=== PATIENT | female | born 1985 | race Caucasian/White ===

== ENCOUNTER 2022-10-12 08:02 | Outpatient (OUT) | payer BC, SELFPAY ==
[2022-10-12 08:20] LABS: Basophils Absolute Auto 0.1 10^3/uL (0.0-0.1); Basophils Percent Auto 0.5 % (0.2-2.0); Eosinophils Absolute Auto 0.2 10^3/uL (0.0-0.7); Eosinophils Percent Auto 1.6 % (0.9-7.0); Hematocrit 38.2 % (36.0-48.0); Hemoglobin 12.3 g/dL (12.0-16.0); Immature Granulocytes Abs Auto 0.04 10^3/uL (0.00-0.03); Immature Granulocytes Pct Auto 0.4 % (0.0-0.5); Lymphocytes Absolute Auto 2.6 10^3/uL (1.2-3.8); Lymphocytes Percent Auto 27.1 % (20.5-60.0); Mean Corpuscular HGB Conc 32.2 g/dL (29.9-35.2); Mean Platelet Volume 9.3 fL (9.5-13.5); Monocytes Absolute Auto 0.7 10^3/uL (0.3-0.8); Monocytes Percent Auto 7.3 % (1.7-12.0); Neutrophils Absolute Auto 6.1 10^3/uL (1.4-6.5); Neutrophils Percent Auto 63.1 % (43.0-75.0); Platelet Count 234 10^3/uL (150-450); Red Blood Count 4.39 10^6/uL (4.20-5.40); White Blood Count 9.6 10^3/uL (4.0-11.0)
[2022-10-12 09:08] LABS: Estimated Average Glucose 94 mg/dL; Glycohemoglobin A1C 4.9 % (4.5-6.2)
[2022-10-12 13:26] LABS: Free T4 1.24 ng/dL (0.76-1.46)
[2022-10-12 14:36] LABS: Alanine Aminotransferase 22 U/L (14-59); Albumin Globulin Ratio 1.1; Albumin Level 3.8 g/dL (3.4-5.0); Alkaline Phosphatase 47 U/L (46-116); Anion Gap 10.3; Aspartate Amino Transferase 14 U/L (15-37); BUN Creatinine Ratio 18.4; Bilirubin Total 0.4 mg/dL (0.2-1.0); Calcium 8.7 mg/dL (8.5-10.1); Carbon Dioxide 28.5 mmol/L (21.0-32.0); Chloride 102 mmol/L (98-107); Chol HDL Ratio 3.1; Cholesterol 179 mg/dL (<=200); Estimated GFR (African America >60 (>=60); Estimated GFR (Non-African Ame >60 (>=60); Globulin 3.5 g/dL; Glucose 85 mg/dL (74-106); HDL Cholesterol 57 mg/dL (40-60); LDL Cholesterol Calculated 110.6 mg/dL; Potassium 3.8 mmol/L (3.5-5.1); Sodium 137 mmol/L (136-145); Thyroid Stimulating Hormone 0.769 uIU/mL (0.358-3.740); Total Protein 7.3 g/dL (6.4-8.2); Triglycerides 57 mg/dL (<=150); VLDL CHOLESTEROL 11.4 mg/dL
== END 2022-10-12 08:03 | disposition home or self-care (01) ==
LOC: LAB 08:06
PROVIDERS: Visit Provider Obstetrics & Gynecology
DX: Z01.89 Encounter for other specified special examinations (principal)
CPT/HCPCS: 36415; 80053; 80061; 83036; 84439; 84443; 85025

== ENCOUNTER 2023-09-04 20:33 | Outpatient (REF) | payer BC, SELFPAY ==
[2023-09-11 15:08] LABS: Age Gdln ACOG Testing Note (.); HPV Aptima Negative (Negative); IGP, Aptima HPV, rfx 16/18,45 Note (.)
== END 2023-09-04 20:34 | disposition home or self-care (01) ==
LOC: LAB 20:33
PROVIDERS: Visit Provider Physician Assistant
DX: Z01.419 Encounter for gynecological examination (general) (routine) without abnormal findings (principal)
CPT/HCPCS: 87624; G0145

== ENCOUNTER 2023-09-12 09:07 | Outpatient (OUT) | payer BC, SELFPAY ==
--- NOTE | 2023-09-12 09:11 | MM_ITS ---
Patient Name: GEOFF GONZALEZ MR#: [id number] : 1985 Exam Date: 09/12/2023 Ordering Doctor: FENG Mckeon . RADIOLOGY REPORT PROCEDURE: MM TOMOSYNTHESIS DIAGNOSTIC BI, 09/12/2023, 09:13 US BREAST RT LIMITED, 09/12/2023, 09:31 COMPARISON: MG MAMM SCREEN 3D JULEE CAD, 08/28/2022. INDICATIONS: N63.10 Mass of right breast Calculator Name NCI Breast Cancer Risk Assessment Tool 5 Year Breast Cancer Risk 0.80% Lifetime Breast Cancer Risk 14.80% Personal Breast Cancer No Personal Ovarian Cancer No Treatments None Family Cancers None LOCATION: The [facility] BREAST COMPOSITION: The breasts are extremely dense, which lowers the sensitivity of mammography. FINDINGS: DIAGNOSTIC CATEGORY 0--INCOMPLETE: NEED ADDITIONAL IMAGING EVALUATION. Scattered benign-appearing nodules are present. Scattered benign-appearing calcifications are present. Scattered benign-appearing lymph nodes are present. RIGHT BREAST: No mammographic or ultrasound abnormality to correspond to the patient's palpable abnormality demarcated with a triangle marker lower inner quadrant, mid breast. Physical exam demonstrates a definite subcutaneous palpable nodule size of a pea along the 6 o'clock position of the right breast. In light of the physical exam, follow-up MRI is recommended for further evaluation. LEFT BREAST: No significant suspicious finding. RECOMMENDATIONS: BREAST MRI: BILATERAL BREASTS PLEASE NOTE: A NORMAL MAMMOGRAM DOES NOT EXCLUDE THE POSSIBILITY OF BREAST CANCER. A CLINICALLY SUSPICIOUS PALPABLE LUMP SHOULD BE BIOPSIED. Dictated by: Rudolph Stevenson MD on 09/12/2023 at 10:06 Approved by: Rudolph Stevenson MD on 09/12/2023 at 10:10
--- NOTE | 2023-09-12 09:29 | US_ITS ---
Patient Name: GEOFF GONZALEZ MR#: [id number] : 1985 Exam Date: 09/12/2023 Ordering Doctor: FENG Mckeon . RADIOLOGY REPORT PROCEDURE: MM TOMOSYNTHESIS DIAGNOSTIC BI, 09/12/2023, 09:13 US BREAST RT LIMITED, 09/12/2023, 09:31 COMPARISON: MG MAMM SCREEN 3D JULEE CAD, 08/28/2022. INDICATIONS: N63.10 Mass of right breast Calculator Name NCI Breast Cancer Risk Assessment Tool 5 Year Breast Cancer Risk 0.80% Lifetime Breast Cancer Risk 14.80% Personal Breast Cancer No Personal Ovarian Cancer No Treatments None Family Cancers None LOCATION: [facility] BREAST COMPOSITION: The breasts are extremely dense, which lowers the sensitivity of mammography. FINDINGS: DIAGNOSTIC CATEGORY 0--INCOMPLETE: NEED ADDITIONAL IMAGING EVALUATION. Scattered benign-appearing nodules are present. Scattered benign-appearing calcifications are present. Scattered benign-appearing lymph nodes are present. RIGHT BREAST: No mammographic or ultrasound abnormality to correspond to the patient's palpable abnormality demarcated with a triangle marker lower inner quadrant, mid breast. Physical exam demonstrates a definite subcutaneous palpable nodule size of a pea along the 6 o'clock position of the right breast. In light of the physical exam, follow-up MRI is recommended for further evaluation. LEFT BREAST: No significant suspicious finding. RECOMMENDATIONS: BREAST MRI: BILATERAL BREASTS PLEASE NOTE: A NORMAL MAMMOGRAM DOES NOT EXCLUDE THE POSSIBILITY OF BREAST CANCER. A CLINICALLY SUSPICIOUS PALPABLE LUMP SHOULD BE BIOPSIED. Dictated by: Rudolph Stevenson MD on 09/12/2023 at 10:06 Approved by: Rudolph Stevenson MD on 09/12/2023 at 10:10
--- OUTSIDE RECORDS SUMMARY | 2023-09-12 09:34 | XMS_ITS | CCD ---
Author Organization [facility] Care Team Providers Care Manufacturing Finance Manager Name Role Phone Keisha Philippekennethюлия Lewis Unavailable Unavaila ble None Unavailable Unavailable Maday, Ramonita Unavailable Unavailable Maday, Ramonita Unavailable Unavailable Maday, Ramonita Unavailable Unavailable Maday, Ramonita Unavailable Unavailable Maday, Ramonita Unavailable Unavailable Maday, Ramonita Unavailable Unavailable Maday, Ramonita Unavailable Unavailable Maday, Ramonita Unavailable Unavailable Maday, Ramonita Unavailable Unavailable Maday, Ramonita Unavailable Unavailable Maday, Ramonita Unavailable Unavailable Maday, Ramonita Unavailable Unavailable Maday, Ramonita Unavailable Unavailable Maday, Ramonita Unavailable Unavailable Maday, Ramonita Unavailable Unavailable Maday, Ramonita Unavailable Unavailable Maday, Ramonita Unavailable Unavailable Maday, Ramonita Unavailable Unavailable Maday, Ramonita Unavailable Unavailable Maday, Ramonita Unavailable Unavailable Maday, Ramonita Unavailable Unavailable Maday, Ramonita Unavailable Unavailable Maday, Ramonita Unavailable Unavailable DENNISE ., LYNDA Consulting Unavailable DENNISE ., LYNDA Admitting Unavailable DENNISE ., LYNDA Attending Unavailable DENNISE ., LYNDA Consulting Unavailable DENNISE ., LYNDA Admitting Unavailable DENNISE ., LYNDA Attending Unavailable SOLO, JONATAN Attending Unavailable SOLO, JONATAN Consulting Unavailable SOLO, JONATAN Admitting Unavailable SAMSA, VALENTINE Attending Unavailable SAMSA, VALENTINE Consulting Unavailable SAMSA, VALENTINE Admitting Unavailable DENNISE, LYNDA Attending Unavailable Allergies Allergy Classification Reported Allergen(s) Allergy Type Date of Onset Reaction(s) Facility (1 source) cefprozil Drug Allergy 02-18-2018 [facility] Repository Problems Active Problems Problem Classification Problem Date Documented Date Episodic/Chronic Fever of unknown origin (1 source) Fever, unspecified; Translations: [FEVER, UNSPECIFIED] Onset: 02-26-2018 Episodic Immunizations and screening for infectious disease (1 source) Encounter for screening for human papillomavirus (HPV); Translations: [ENC SCREENING HUMAN PAPILLOMAVIRUS] Onset: 08-24-2022 Episodic Other non-traumatic joint disorders (1 source) Other specified joint disorders, right hip; Translations: [OTHER SPECIFIED JOINT DISORDERS, RIGHT HIP] Onset: 02-20-2018 Episodic Other screening for suspected conditions (not mental disorders or infectious disease) (4 sources) Encounter for screening for malignant neoplasm of cervix; Translations: [ENC SCREENING MALIG NEOPLASM CERV] Onset: 08-21-2022 Episodic Other upper respiratory infections (5 sources) Acute pharyngitis, unspecified; Translations: [ACUTE PHARYNGITIS, UNSPECIFIED] Onset: 02-26-2018 Episodic Thyroid disorders (1 source) Hypothyroidism, unspecified; Translations: [HYPOTHYROIDISM, UNSPECIFIED] Onset: 07-22-2017 Chronic Unclassified (1 source) Unknown / UNK(Unknown) Onset: 02-27-2017 Past or Other Problems Problem Classification Problem Date Documented Da te Episodic/Chronic Genitourinary symptoms and ill-defined conditions (2 sources) Dysuria; Translations: [Frequency of micturition] Onset: 07-08-2017 Episodic Other non-traumatic joint disorders (1 source) Pain in right hip; Translations: [PAIN IN RIGHT HIP] Onset: 08-26-2017 Episodic Results Test Name Value Interpretation Reference Range Facil ity PAP ACOG PANEL 2: 30 to 65on 08-29-[address] [facility] Comment on above: Result Comment: Perf ormed at: WB Performed By: #### [id number] #### [facility] [address] [place] [address] Dr. Harshal Valenzuela Age Gdln ACOG Testing 30-[address] [facility] Comment on above: Performed By: #### 4 [id number] #### [facility] [address] [address] [address] Harshal Valenzuela DIAGNOSIS: Comment Normal [facility] Comment on above: Result Comment: NEGA TIVE FOR INTRAEPITHELIAL LESION OR MALIGNANCY. Performed at: WB Performed By: #### 4 [id number] #### [facility] [address] [address] [address] Harshal Valenzuela HPV Aptima Negative Normal Negative [facility] Comment on above: Result Comment: This nucleic acid amplification test detects fourteen high-risk HPV types (16,18,31,33,35,39,45,51,52,56,58,59,66,68) without differentiation. Performed at: =G Performed By: #### 4 [id number] #### [facility] [address] [place] [address] Dr. Harshal Valenzuela HPV Genotype Reflex Comment Normal [facility] Comment on above: Result Comment: Crit eria not met, HPV Genotype not performed. Performed at: WB Performed By: #### 4 [id number] #### [facility] [address] [place] [address] Dr. Harshal Valenzuela Methodology: Comment Normal [facility] Comment on above: Result Comment: This liquid based ThinPrep(R) pap test was screened with the use of an image guided system. Performed at: WB Performed By: #### 4 [id number] #### [facility] [address] [place] [address] Dr. Harshal Valenzuela Note: Comment Normal [facility] Comment on above: Result Comment: The Pap smear is a screening test designed to aid in the detection of premalignant and malignant conditions of the uterine cervix. It is not a diagnostic procedure and should not be used as the sole means of detecting cervical cancer. Both false-positive and false-negative reports do occur. . Performed at: WB Performed By: #### 4 [id number] #### [facility] [address] [place] [address] Dr. Harshal Valenzuela Performed by: Comment Normal [facility] Comment on above: Result Comment: Carin Paredes, Machinist/Machine Builder (ASCP) Performed at: WB Performed By: #### 4 [id number] #### [facility] [address] [place] [address] Dr. Harshal Valenzuela Specimen adequacy: Comment Normal [facility] Comment on above: Result Comment: Sati sfactory for evaluation. No endocervical component is identified. Performed at: WB Performed By: #### 4 [id number] #### [facility] [address] [place] [address] Dr. Harshal Valenzuela MG MAMM SCREEN 3D JULEE CADon 08-28-2022 MG MAMM SCREEN 3D JULEE CAD Patient: GEOFF GONZALEZ Exam Date: 08/28/2022 : 1985 Gender:F Ordering : FENG BOWDEN . Admission #: [id number] Family : Order #: [id number] CLICK HERE TO VIEW EXAM RADIOLOGY REPORT PROCEDURE: MAMMOGRAM SCREENING 3D BILATERAL CAD COMPARISON: MG MAMM SCREEN 3D JULEE CAD, 09/13/2021. MG MAMM SCREEN 3D JULEE CAD, 01/13/2020. MG MAMM JULEE DIAG W CAD, 10/06/2018. INDICATIONS: Screening mammography Calculator Name NCI Breast Cancer Risk Assessment Tool 5 Year Breast Cancer Risk 0.80% Lifetime Breast Cancer Risk 14.90% Personal Breast Cancer No Personal Ovarian Cancer No Treatments None Family Cancers None LOCATION: [facility] BREAST COMPOSITION: Extremely dense, which lowers the sensitivity of mammography. FINDINGS: DIAGNOSTIC CATEGORY 1--NEGATIVE. RIGHT BREAST: No significant suspicious finding. No significant change has occurred. LEFT BREAST: No significant suspicious finding. No significant change has occurred. RECOMMENDATIONS: ROUTINE MAMMOGRAM AND CLINICAL EVALUATION IN 12 MONTHS. PLEASE NOTE: A NORMAL MAMMOGRAM DOES NOT EXCLUDE THE POSSIBILITY OF BREAST CANCER. A CLINICALLY SUSPICIOUS PALPABLE LUMP SHOULD BE BIOPSIED. Dictated by: Adán Chambers M.D. on 08/30/2022 at 13:13 Approved by: Adán Chambers M.D. on 08/30/2022 at 13:15 Normal [facility] GROUP A STREP CULTUREon 07-22 S. pyogenes Ag Ql (Unsp spec) Culture Observations: NEGATIVE FOR GROUP A STREPTOCOCCUS. Normal [facility] Comment on above: Performed By: #### G RASTCX, SSCRN #### [facility] [address] [address] [address] Harshal Valenzuela STREPT SCREENon 08-16-2022 STREP SCREEN A Negative Normal NEGATIVE [facility] Comment on above: Performed By: #### G RASTCX, SSCRN #### [facility] [address] [address] [address] Harshal Valenzuela QUANTIFERON TB GOLD PLUSon 1 05-06-2021 QuantiFERON Criteria Comment Normal [facility] Comment on above: Result Comment: Danielito tiFERON-TB Gold Plus is a qualitative indirect test for M tuberculosis infection (including disease) and is intended for use in conjunction with risk assessment, radiography, and other medical and diagnostic evaluations. The QuantiFERON-TB Gold Plus result is determined by subtracting the Nil value from either TB antigen (Ag) value. The Mitogen tube serves as a control for the test. Performed By: #### Q NTTB #### [facility] [address] [place] [address] Dr. Harshal Valenzuela QuantiFERON Mitogen Value >10.[address] [facility] Comment on above: Performed By: #### Q NTTB #### [facility] [address] [place] [address] Dr. Harshal Valenzuela QuantiFERON Nil Value 0.04 IU/mL Normal [facility] Comment on above: Performed By: #### Q NTTB #### [facility] [address] [place] [address] Dr. Harshal Valenzuela QuantiFERON TB1 Ag Value 0.03 IU/mL Normal [facility] Comment on above: Performed By: #### Q NTTB #### [facility] [address] [place] [address] Dr. Harshal Valenzuela QuantiFERON TB2 Ag Value 0.03 IU/mL Normal [facility] Comment on above: Performed By: #### Q NTTB #### [facility] [address] [place] [address] Dr. Harshal Valenzuela QuantiFERON Incubation Incubation performed. Normal [facility] Comment on above: Performed By: #### Q NTTB #### [facility] [address] [place] [address] Dr. Harshal Valenzuela QuantiFERON-TB Gold Plus Negative Normal Negative [facility] Comment on above: Result Comment: No r esponse to M tuberculosis antigens detected. Infection with M tuberculosis is unlikely, but high risk individuals should be considered for additional testing (ATS/IDSA/CDC Clinical Practice Guidelines, 2017). The reference range is an Antigen minus Nil result of <0.35 IU/mL. Chemiluminescence immunoassay methodology Performed By: #### Q NTTB #### [facility] [address] [place] [address] Dr. Harshal Valenzuela HEPATITIS B SURFACE ANTIBODY , QUANTon 03-03-2022 Hepatitis B Surf AB Quant 23.6 mIU/mL Normal Immunity>9.9 [facility] Comment on above: Result Comment: Stat us of Immunity Anti-HBs Level Inconsistent with Immunity 0.0 - 9.9 Consistent with Immunity >9.9 Performed By: #### H EPBSRF #### [facility] [address] [place] [address] Dr. Harshal Valenzuela MMR IMMUNITYon 03-03-2022 Mumps Abs, IgG <9.0 Critically low Immune >10.9 [facility] Comment on above: Result Comment: Nega tive <9.0 Equivocal 9.0 - 10.9 Positive >10.9 A positive result generally indicates past exposure to Mumps virus or previous vaccination. Performed By: #### M MRIMMU #### [facility] [address] [place] [address] Dr. Harshal Valenzuela Rubella Antibodies, IgG <0.90 Critically low Immune >0.99 [facility] Comment on above: Result Comment: Non- immune <0.90 Equivocal 0.90 - 0.99 Immune >0.99 Performed By: #### M MRIMMU #### [facility] [address] [place] [address] Dr. Harshal Valenzuela Rubeola Ab, IgG 52.5 AU/mL Normal Immune >16.4 [facility] Comment on above: Result Comment: Nega tive <13.5 Equivocal 13.5 - 16.4 Positive >16.4 Presence of antibodies to Rubeola is presumptive evidence of immunity except when acute infection is suspected. Performed By: #### M MRIMMU #### [facility] [address] [place] [address] Dr. Harshal Valenzuela VARICELLA IGG ABon 2 Varicella Zoster IgG 394 index Normal Immune >165 [facility] Comment on above: Result Comment: Nega tive <135 Equivocal 135 - 165 Positive >165 A positive result generally indicates exposure to the pathogen or administration of specific immunoglobulins, but it is not indication of active infection or stage of disease. Performed By: #### V ARCEL #### [facility] [address] [address] [address] Harshal Valenzuela CMV IGG ANTIBODYon 8 CMV IGG ANTIBODY 1.50 U/mL Abnormal <0.[address] [facility] Comment on above: Order Comment: REASO N FOR EXAM E03.9 Result Comment: U/mL Interpretation <0.60 Negative0.60 - 0.69 Equivocal> or = 0.70 PositiveA positive result indicates that the patient hasantibody to CMV. It does not differentiate betweenan active or past infection.Test Performed by [facility],[address] [place], [place] [address]LqgiyxbKori Jaffe M.D., Ph.D., Director of [phone], CLIA [id number] CMV IGM ANTIBODYon 8 CMV IGM ANTIBODY <30.00 Normal <30.[address] [facility] Comment on above: Order Comment: REASO N FOR EXAM E03.9 Result Comment: AU/m L Interpretation < 30.00 No Antibody Hoftltcu88.00 - 34.99 Equivocal > or = 35.00 Antibody DetectedResults from any one IgM assay should not be used as asole determinant of a current or recent infection.Because an IgM test can yield false positive resultsand low level IgM antibody may persist for more than 12months post infection, reliance on a single test resultcould be misleading. Acute infection is best diagnosedby demonstrating the conversion of IgG from negative topositive. If an acute infection is suspected, considerobtaining a new specimen and submit for both IgG andIgM testing in two or more weeks.Test Performed by [facility],[address] [place], [place] [address]VtjmytdKori Jaffe M.D., Ph.D., Director of [phone], CLIA [id number] EBV VIRAL CAPSID AB IGGon EBV VIRAL CAPSID AB IGG 428.00 U/mL Abnormal <18.00 [facility] Comment on above: Order Comment: REASO N FOR EXAM E03.9 Result Comment: U/mL Interpretation <18.00 Ojbxthur88.00 - 21.99 Equivocal >21.99 PositiveTest Performed by [employer],[address] [place], [place] [address]QyujejbKori Jaffe M.D., Ph.D., Director of [phone], CLIA [id number] EBV VIRAL CAPSID AB IGMon EBV VIRAL CAPSID AB IGM <36.00 Normal <36.00 [facility] Comment on above: Order Comment: REASO N FOR EXAM E03.9 Result Comment: U/mL Interpretation <36.00 Cwgzanur18.00 - 43.99 Equivocal >43.99 PositiveTest Performed by [employer],[address] [place], [place] [address]CesmtmqKori Jfafe M.D., Ph.D., Director of [phone], CLIA [id number] COMPLETE BLOOD COUNTon 02-26 ABSOLUTE SEGS 3400 /cmm Normal 0873-2187 [facility] Comment on above: Order Comment: REASO N FOR EXAM E03.9 Performed By: #### T 4F, TSH ####MAIN LABCLIA:[id number] [place] [address] Basophils Auto #/vol (Bld) 100 /cmm Normal <216 [facility] Comment on above: Order Comment: REASO N FOR EXAM E03.9 Performed By: #### T 4F, TSH ####MAIN LABCLIA:[id number] [place] [address] Basophils/100 WBC Auto (Bld) 0.8 % Normal <2.0 [facility] Comment on above: Order Comment: REASO N FOR EXAM E03.9 Performed By: #### T 4F, TSH ####MAIN LABCLIA:[id number] [place] [address] Eosinophils Auto #/vol (Bld) 100 /cmm Normal <432 [facility] Comment on above: Order Comment: REASO N FOR EXAM E03.9 Performed By: #### T 4F, TSH ####MAIN LABCLIA:[id number] [facility] [address] Eosinophils/100 WBC Auto (Bld) 1.1 % Normal <4.0 [facility] Comment on above: Order Comment: REASO N FOR EXAM E03.9 Performed By: #### T 4F, TSH ####MAIN LABCLIA:[id number] [facility] [place] [address] Erythrocyte distribution width Auto Ratio (RBC) 13.1 % Normal 11.5-14.5 [facility] Comment on above: Order Comment: REASO N FOR EXAM E03.9 Performed By: #### T 4F, TSH ####MAIN LABCLIA:[id number] [facility] [place] [address] Hematocrit Auto Volume Fraction (Bld) 38.1 % Normal 38.0-47.0 [facility] Comment on above: Order Comment: REASO N FOR EXAM E03.9 Performed By: #### T 4F, TSH ####MAIN LABCLIA:[id number] [facility] [place] [address] Hemoglobin mass conc (Bld) 12.9 g/dL Normal 12.0-16.4 [facility] Comment on above: Order Comment: REASO N FOR EXAM E03.9 Performed By: #### T 4F, TSH ####MAIN LABCLIA:[id number] [place] [address] Lymphocytes Auto #/vol (Bld) 2300 /cmm Normal [phone] [facility] Comment on above: Order Comment: REASO N FOR EXAM E03.9 Performed By: #### T 4F, TSH ####MAIN LABCLIA:[id number] [place] [address] Lymphocytes/100 WBC Auto (Bld) 34.0 % Normal 20.0-44.0 [facility] Comment on above: Order Comment: REASO N FOR EXAM E03.9 Performed By: #### T 4F, TSH ####MAIN LABCLIA:[id number] [place] [address] MCH Auto Entitic mass (RBC) 33.7 g/dL Normal 32.0-36.0 [facility] Comment on above: Order Comment: REASO N FOR EXAM E03.9 Performed By: #### T 4F, TSH ####MAIN LABCLIA:[id number] [place] [address] MCH Auto Entitic mass (RBC) 28.7 pg Normal 27.0-31.0 [facility] Comment on above: Order Comment: REASO N FOR EXAM E03.9 Performed By: #### T 4F, TSH ####MAIN LABCLIA:[id number] [place] [address] MCV Auto Entitic volume (RBC) 85.1 fL Normal 80.0-96.0 [facility] Comment on above: Order Comment: REASO N FOR EXAM E03.9 Performed By: #### T 4F, TSH ####MAIN LABCLIA:[id number] [facility] [address] Monocytes Auto #/vol (Bld) 900 /cmm Normal 96-972 [facility] Comment on above: Order Comment: REASO N FOR EXAM E03.9 Performed By: #### T 4F, TSH ####MAIN LABCLIA:[id number] [place] [address] Monocytes/100 WBC Auto (Bld) 13.6 % High 2.0-9.0 [facility] Comment on above: Order Comment: REASO N FOR EXAM E03.9 Performed By: #### T 4F, TSH ####MAIN LABCLIA:[id number] [facility] [place] [address] Neutrophils/100 WBC Auto (Bld) 50.5 % Normal 50.0-70.0 [facility] Comment on above: Order Comment: REASO N FOR EXAM E03.9 Performed By: #### T 4F, TSH ####MAIN LABCLIA:[id number] [facility] [place] [address] Platelets Auto #/vol (Bld) 248 10 3/cmm Normal 130-400 [facility] Comment on above: Order Comment: REASO N FOR EXAM E03.9 Performed By: #### T 4F, TSH ####MAIN LABCLIA:[id number] [facility] [address] RBC Auto #/vol (Bld) 4.48 10 6/cmm Normal 4.20-5.40 [facility] Comment on above: Order Comment: REASO N FOR EXAM E03.9 Performed By: #### T 4F, TSH ####MAIN LABCLIA:[id number] [facility] [address] WBC Auto #/vol (Bld) 6.8 10 3/cmm Normal 4.8-10.8 [facility] Comment on above: Order Comment: REASO N FOR EXAM E03.9 Performed By: #### T 4F, TSH ####MAIN LABCLIA:[id number] [facility] [place] [address] MONONUCLEOSIS SCREENon 02-26 MONONUCLEOSIS SCREEN Negative Normal [facility] Comment on above: Order Comment: REASO N FOR EXAM E03.9 Result Comment: @Int ernal Control OK? (yes,no) YESNOTE: Some segments of the population who contract IM do notproduce measurable levels of heterophile antibody.Approximately 50% of children under 4 years of age who haveIM may test as IM heterophile antibody negative. In thosecases, it is suggested that the physician order EBV titerswhich are more specific. Performed By: #### T 4F, TSH ####MAIN LABCLIA:[id number] [facility] [address] MRI HIPon 02-20-[address] [phone] Pt Location: IMGCTR/ DEP REF Pt RM#: MR #: [id number] DATE: 02/20/18 1346 ADM#: [id number] #: [id number] GEOFF GONZALEZ MDOB: 1985 Age/Sex: 32 / F REPORT STATUS: SignedORDERING PHYSICIAN: SALOME FayPRIVATE/PRIMARY PHYSICIAN: SALOME Fay HISTORY/REASON : JOINT DISORDERCLINICAL HISTORY: Right hip pain.TECHNICAL FACTORS:EXAMINATION: MRI HIPFINDINGS: There is a bony bump at the lateral aspect of the junction of thefemoral head/necksuggesting cam type femoral acetabular impingement.The labrum is grossly unremarkable.There is increased signal on T2 weighted images adjacent to the gluteus mediusand gluteus minimustendons suggesting a strain.The hyaline cartilage in the hip joint is unremarkable. There is no evidence of joint effusion.The signal characteristics of bone marrow are within normal limits.IMPRESSION:1. Cam type femoral acetabular impingement. There is no definite labrum tear.2. Strain of the gluteus medius and gluteus minimus tendons.REPORT# [id number] READ BY: Naomy Tay M.D. [id number] REPORT RELEASED BY: Naomy Tay M.D. 02/21/182009Transcribed Date/Time: 02/20/181801 JLECC: SALOME Fay [facility] MRI PELVISon 02-20-[address] [phone] Pt Location: IMGCTR/ DEP REF Pt RM#: MR #: [id number] DATE: 02/20/18 1346 ADM#: [id number] #: [id number] GEOFF GONZALEZ MDOB: 1985 Age/Sex: 32 / F REPORT STATUS: SignedORDERING PHYSICIAN: SALOME FayPRIVATE/PRIMARY PHYSICIAN: SALOME Fay HISTORY/REASON : JOINT DISORDERCLINICAL HISTORY: Pelvic pain.TECHNICAL FACTORS: Coronal and axial T1 weighted images, coronal STIR images,axial T2 weightedimages with fat saturation were performed.EXAMINATION: MRI PELVISFINDINGS: The alignment of the sacroiliac joints and pubic symphysis isanatomic. The alignmentof the hip joints is anatomic.The visualized part of the uterus and ovaries show no abnormality.The urinary bladder is unremarkable.There is no evidence of free fluid in the pelvis.IMPRESSION:Unrem arkable study.REPORT# [id number] READ BY: Naomy Tay M.D. [id number] REPORT RELEASED BY: Naomy Tay M.D. 02/21/182009Transcribed Date/Time: 02/20/18 1758 JLECC: SALOME Fay Normal [facility] COMPREHENSIVE METABOLIC PANE Zach 01-22-2018 Albumin mass conc 4.8 g/dL High 3.0-4.5 [facility] Comment on above: Order Comment: REASO N FOR EXAM Z00.00 Performed By: #### C MP, VASR ####MAIN LABCLIA:[id number] [facility] [place] [address] Albumin/Globulin mass ratio 1.7 {ratio} High 1-1.4 [facility] Comment on above: Order Comment: REASO N FOR EXAM Z00.00 Performed By: #### C GEORGE, VASR ####MAIN LABCLIA:[id number] [facility] [place] [address] ALP enzyme act/vol 53 U/L Normal 35-104 [facility] Comment on above: Order Comment: REASO N FOR EXAM Z00.00 Performed By: #### C GEORGE, VASR ####MAIN LABCLIA:[id number] [facility] [place] [address] ALT enzyme act/vol 12 U/L Normal 0-33 [facility] Comment on above: Order Comment: REASO N FOR EXAM Z00.00 Performed By: #### C GEORGE, VASR ####MAIN LABCLIA:[id number] [facility] [place] [address] Anion gap 3 molar conc 15 mmol/L Normal 9-18 [facility] Comment on above: Order Comment: REASO N FOR EXAM Z00.00 Performed By: #### C GEORGE, VASR ####MAIN LABCLIA:[id number] [facility] [place] [address] AST enzyme act/vol 16 U/L Normal 0-32 [facility] Comment on above: Order Comment: REASO N FOR EXAM Z00.00 Performed By: #### Daksha VAZQUEZ, VASR ####MAIN LABCLIA:[id number] [facility] [address] Bilirubin mass conc 0.5 mg/dL Normal 0.2-1.2 [facility] [facility] Comment on above: Order Comment: REASO N FOR EXAM Z00.00 Performed By: #### C GEORGE, VASR ####MAIN LABCLIA:[id number] [place] [address] Calcium mass conc 9.6 mg/dL Normal 8.6-10.0 [facility] Comment on above: Order Comment: REASO N FOR EXAM Z00.00 Performed By: #### C GEORGE, VASR ####MAIN LABCLIA:[id number] [facility] [place] [address] Chloride molar conc 103 mmol/L Normal 98-107 [facility] Comment on above: Order Comment: REASO N FOR EXAM Z00.00 Performed By: #### C GEORGE, VASR ####MAIN LABCLIA:[id number] [facility] [place] [address] CO2 molar conc 26 mmol/L Normal 22-29 [facility] Comment on above: Order Comment: REASO N FOR EXAM Z00.00 Performed By: #### C GEORGE, VASR ####MAIN LABCLIA:[id number] [place] [address] Creatinine mass conc 0.72 mg/dL Normal 0.50-0.90 [facility] Comment on above: Order Comment: REASO N FOR EXAM Z00.00 Performed By: #### C GEORGE, VASR ####MAIN LABCLIA:[id number] [place] [address] GFR/1.73 sq M.predicted MDRD vol rate/area 99 /1.73 m2 Normal >60 mL/min [facility] Comment on above: Order Comment: REASO N FOR EXAM Z00.00 Result Comment: Norm al RangeStage Description:1 Normal or Increased GFR >=902 Mild Decrease in GFR 60-903 Moderately Decreased GFR 30-594 Severely Decreased GFR 15-295 Kidney Failure <15 Performed By: #### C GEORGE, VASR ####MAIN LABCLIA:[id number] [facility] [place] [address] Globulin Calculated mass conc (S) 2.8 g/dL Normal 2.3-3.5 [facility] Comment on above: Order Comment: REASO N FOR EXAM Z00.00 Performed By: #### C GEORGE, VASR ####MAIN LABCLIA:[id number] [facility] [place] [address] Glucose mass conc 95 mg/dL Normal 74-109 [facility] Comment on above: Order Comment: REASO N FOR EXAM Z00.00 Performed By: #### C MP, VASR ####MAIN LABCLIA:[id number] [facility] [place] [address] Potassium molar conc 4.3 mmol/L Normal 3.5-5.1 [facility] Comment on above: Order Comment: REASO N FOR EXAM Z00.00 Performed By: #### C MP, VASR ####MAIN LABCLIA:[id number] [facility] [place] [address] Protein mass conc 7.6 g/dL Normal 6.4-8.3 [facility] Comment on above: Order Comment: REASO N FOR EXAM Z00.00 Performed By: #### C GEORGE, VASR ####MAIN LABCLIA:[id number] [facility] [place] [address] Sodium molar conc 140 mmol/L Normal 136-145 [facility] Comment on above: Order Comment: REASO N FOR EXAM Z00.00 Performed By: #### C GEORGE, VASR ####MAIN LABCLIA:[id number] [facility] [address] Urea nitrogen mass conc (Bld) 9 mg/dL Normal 6-20 [facility] Comment on above: Order Comment: REASO N FOR EXAM Z00.00 Performed By: #### C GEORGE, VASR ####MAIN LABCLIA:[id number] [facility] [place] [address] Urea nitrogen/Creatinine mass ratio 12.5 mg/mg Normal [facility] Comment on above: Order Comment: REASO N FOR EXAM Z00.00 Performed By: #### C MP, VASR ####MAIN LABCLIA:[id number] [place] [address] FREE T4 (FREE THYROXINE)on 1 T4 free mass conc 1.74 ng/dL High 0.93-1.7 [facility] Comment on above: Order Comment: REASO N FOR EXAM Z00.00 Performed By: #### T 4F, TSH ####MAIN LABCLIA:[id number] [facility] [place] [address] THYROID STIMULATING HORMONEo n 01-22-2018 Thyrotropin Qn 0.86 uIU/mL Normal 0.27-4.[address] [facility] Comment on above: Order Comment: REASO N FOR EXAM Z00.00 Performed By: #### T 4F, TSH ####MAIN LABCLIA:[id number] [place] [address] VASCULAR RISK PANELon 2017 Cholesterol in HDL mass conc 52 mg/dL Low >65 [facility] Comment on above: Order Comment: REASO N FOR EXAM Z00.00 Performed By: #### C MP, VASR ####MAIN LABCLIA:[id number] [facility] [place] [address] Cholesterol in LDL mass conc 96 mg/dL Normal <129 [facility] Comment on above: Order Comment: REASO N FOR EXAM Z00.00 Performed By: #### C MP, VASR ####MAIN LABCLIA:[id number] [facility] [place] [address] Cholesterol mass conc 160 mg/dL Normal 0-199 [facility] Comment on above: Order Comment: REASO N FOR EXAM Z00.00 Performed By: #### C MP, VASR ####MAIN LABCLIA:[id number] [facility] [place] [address] Triglyceride mass conc 58 mg/dL Normal 0-199 [facility] Comment on above: Order Comment: REASO N FOR EXAM Z00.00 Performed By: #### C MP, VASR ####MAIN LABCLIA:[id number] [facility] [place] [address] VLDL CHOLESTEROL 12 mg/dL Normal 5-[address] [facility] Comment on above: Order Comment: REASO N FOR EXAM Z00.00 Performed By: #### C MP, VASR ####MAIN LABCLIA:[id number] [place] [address] HIP UNI 2-3 VIEWS ROUTINEon 07-30-2017 HIP UNI 2-3 VIEWS ROUTINE [address] [phone] Pt Location: [facility] REF Pt RM#: MR #: [id number] DATE: 07/30/17816 ADM#: [id number] #: [id number] GEOFF GONZALEZ MDOB: 1985 Age/Sex: 32 / F REPORT STATUS: SignedORDERING PHYSICIAN: SALOME FayPRIVATE/PRIMARY PHYSICIAN: SALOME Fay HISTORY/REASON : M25.551CLINICAL HISTORY: Hip pain.TECHNICAL FACTORS: 2 view right hip.EXAMINATION: HIP UNI 2-3 VIEWS ROUTINEFINDINGS: The alignment of the osseous structures is preserved. I see nodefinite osteolytic orosteoblastic lesions. The fat pads show no definite abnormalities.IMPRESSIO N:I see no definite bone or soft tissue abnormality in the right hip.REPORT# [id number] READ BY: Clara Tolbert MD 07/30/17 1252FINAL REPORT RELEASED BY: Clara Tolbert MD 07/31/17 1016Transcribed Date/Time: 07/30/17 1535 JLECC: SALOME Fay Normal [facility] FREE T4 (FREE THYROXINE)on 0 07-22-2017 T4 free mass conc 1.31 ng/dL Normal 0.93-1.7 [facility] Comment on above: Order Comment: REASO N FOR EXAM E03.9 Performed By: #### T 4F, TSH ####MAIN LABCLIA:[id number] [place] [address] THYROID STIMULATING HORMONEo n 07-22-2017 Thyrotropin Qn 1.21 uIU/mL Normal 0.27-4.[address] [facility] Comment on above: Order Comment: REASO N FOR EXAM E03.9 Performed By: #### T 4F, TSH ####MAIN LABCLIA:[id number] [facility] [place] [address] URINE CULTUREon 07-08-2017 Bacteria identified Cx Nom (U) ------- URINE CULTURE: No growth after 2 days Normal [facility] Comment on above: Order Comment: REASO N FOR EXAM R30.0 Performed By: #### U RINE ####MAIN LABCLIA:[id number] [place] [address] HPV High Riskon 03-07-2017 HPV High Risk Negative Normal Negative [facility] Comment on above: Result Comment: for types 16,18,31,33,35,39,45,51,52,56,58,59,66 and 68.Methodology: Nucleic Acid Amplification Test (NAAT) Performed By: #### L [phone] ####Main Laboratory ([facility])[address], [place] [phone] Nivar, MD Gynecologic (PAP) Specimenon 02-27-2017 Gynecologic (PAP) Specimen Normal [facility] Comment on above: Result Comment: Name : GEOFF GONZALEZ Age: 31 /Sex: 1985/F MR#: [id number] Reg Date: 02/27/[address]: Denae RECINOS,Shireen#: [id number] Status: DEP CLI Loc: [facility] RM: -Copies to:Mirtha Philippe MD; None Specimen: [id number] Received: [id number] Status: YOSELIN Vanegas Num: [id number] Collected: [id number] Type: ASSET CARD CLERK Subm Doc: Denae RECINOS,Mirtha OG CYTOLOGY REPORT Source: Cervical and Endocervical, Thin Prep, HPV Adequacy of the Specimen: Satisfactory for Evaluation. Presence of endocervical/transformation zone cells. General Categorization: Negative for intraepithelial lesion or malignancy. Comments: HPV regardless of result. The pap test is a screening procedure only. Both false-positive and false-negative results can occur.PATIENT HISTORY LMP Nursing Clinical History: Post Date of Last Pap Unknown Diagnosis codes: Z12.4HPV TYPINGDate Time Test Result Flag (u) Normal Range02/27/17 UNK HPV Negative Negativefor types 16,18,31,33,35,39,45,51,52,56,58,59,66 and 68.Methodology: Nucleic Acid Amplification Test (NAAT)Signed (signature on file) INEZ Hernandez([facility] 03/05/17 1115 (signature on file) INEZ Hernandez([facility] 03/07/17 1425 Performed By: #### P ASSET CARD CLERK ####Main Laboratory ([facility] [place], [place] [phone] Nivar, MD Encounters Encounter Date Encounter Type Care Provider Facility Start: 09-04-2023 End: 09-04-2023 ambulatory LYNDA BOWDEN Not Available Start: 08-28-2022 End: 08-29-2022 ambulatory LYNDA BOWDEN . Facility:[facility] Start: 08-21-2022 End: 08-21-2022 ambulatory LYNDA BOWDEN . Facility:[facility] Start: 08-16-2022 End: 08-17-2022 ambulatory VALENTINE KERN Facility:[facility] Start: 03-02-2022 End: 03-02-2022 ambulatory JONATAN BANDA Facility: Start: 02-26-2018 End: 02-26-2018 Patient encounter procedure [facility] Facility:[facility] Start: 02-20-2018 End: 02-20-2018 Patient encounter procedure [facility] Facility:[facility] Start: 01-22-2018 Encounter for genera l adult medical examination without abnormal findings Ramonita Nassar [facility] Start: 01-22-2018 End: 01-22-2018 Patient encounter procedure [facility] Facility:[facility] Start: 08-26-2017 End: 08-26-2017 Patient encounter procedure [facility] Facility:[facility] Start: 07-30-2017 End: 07-30-2017 Patient encounter procedure [facility] Facility:[facility] Start: 07-22-2017 End: 07-22-2017 Patient encounter procedure [facility] Facility:[facility] Start: 07-08-2017 End: 07-08-2017 Patient encounter procedure [facility] Facility:[facility] Start: 02-27-2017 End: 02-27-2017 Ambulatory Mirtha Lewis Denae Facility:[facility] Payers Date Payer Category Payer Unknown [id number] 2017 Unknown [id number] 2016 Unknown [id number] 1985 Unknown [id number] 2.16.84 [id number] 1985 Unknown [id number] 2.16.84 0.1.539181.3.579.2.593 1985 Unknown [id number] 2.16.84 0.1.790122.3.579.2.593 1985 Unknown [id number] 2.16.84 0.1.497238.3.579.2.1259 1961 Self-pay Unknown [id number] 2.16.84 0.1.614743.3.579.2.543 Unknown [id number] 2.16.84 0.1.646742.3.579.2.543 Unknown [id number] 2.16.84 0.1.733614.3.579.2.543 Unknown [id number] 2.16.84 0.1.482495.3.579.2.543 Unknown [id number] 2.16.84 0.1.969789.3.579.2.543 Unknown [id number] 2.16.84 0.1.262934.3.579.2.543 Unknown [id number] 2.16.84 0.1.556078.3.579.2.543 Unknown [id number] 2.16.84 0.1.252179.3.579.2.593 Summary Purpose Family History No Family History Records FoundNo Family History Records FoundNo Family History Records FoundNo Family History Records Found Advance Directives No Advanced Directives Records FoundNo Advanced Directives Records FoundNo Advanced Directives Records FoundNo Advanced Directives Records Found Additional Source Comments INFORMATION SOURCE (unrecogn ized section and content) DATE CREATED AUTHOR 10/15/2017 [facility] DATE CREATED AUTHOR AUTHOR'S ORGANIZ ATION 03/30/2018 Daisy Suzierolando schultz DATE CREATED AUTHOR AUTHOR'S ORGANIZ ATION 08/30/2022 [facility] DATE CREATED AUTHOR AUTHOR'S ORGANIZ ATION 09/06/2023 [facility] FOR RECORDS PERTAINING TO PATIENTS WHO ARE OR HAVE BEEN ENROLLED IN A CHEMICAL DEPENDENCY/SUBSTANCEABUSE PROGRAM, SOME INFORMATION MAY BE OMITTED. This clinical summary was aggregated from multiple sources. Caution should be exercised in using it in the provision of clinical care. This summary normalizes information from multiple sources, and as a consequence, information in this document may materially change the coding, format and clinical context of patient data. In addition, data may be omitted in some cases. CLINICAL DECISIONS SHOULD BE BASED ON THE PRIMARY CLINICAL RECORDS. [facility]. provides no warranty or guarantee of the accuracy or completeness of information in this document.
[2023-09-12 10:41] LABS: Basophils Absolute Auto 0.1 10^3/uL (0.0-0.1); Basophils Percent Auto 0.8 % (0.2-2.0); Eosinophils Absolute Auto 0.1 10^3/uL (0.0-0.7); Eosinophils Percent Auto 1.9 % (0.9-7.0); Hematocrit 38.5 % (36.0-48.0); Hemoglobin 12.4 g/dL (12.0-16.0); Immature Granulocytes Abs Auto 0.04 10^3/uL (0.00-0.03); Immature Granulocytes Pct Auto 0.5 % (0.0-0.5); Lymphocytes Absolute Auto 2.2 10^3/uL (1.2-3.8); Lymphocytes Percent Auto 29.4 % (20.5-60.0); Mean Corpuscular HGB Conc 32.2 g/dL (29.9-35.2); Mean Corpuscular Volume 86.9 fL (81.0-99.0); Mean Platelet Volume 9.7 fL (9.5-13.5); Monocytes Absolute Auto 0.6 10^3/uL (0.3-0.8); Monocytes Percent Auto 7.3 % (1.7-12.0); Neutrophils Absolute Auto 4.5 10^3/uL (1.4-6.5); Neutrophils Percent Auto 60.1 % (43.0-75.0); Platelet Count 258 10^3/uL (150-450); Red Blood Count 4.43 10^6/uL (4.20-5.40); Red Cell Distribution Width 12.8 % (11.0-15.0); White Blood Count 7.5 10^3/uL (4.0-11.0)
[2023-09-12 10:56] LABS: Estimated Average Glucose 108 mg/dL; Glycohemoglobin A1C 5.4 % (4.5-6.2)
[2023-09-12 12:22] LABS: Alanine Aminotransferase 27 U/L (14-59); Albumin Globulin Ratio 1.1; Albumin Level 3.7 g/dL (3.4-5.0); Alkaline Phosphatase 50 U/L (46-116); Anion Gap 11.6; Aspartate Amino Transferase 21 U/L (15-37); BUN Creatinine Ratio 17.2; Bilirubin Total 0.7 mg/dL (0.2-1.0); Calcium 8.8 mg/dL (8.5-10.1); Carbon Dioxide 29.2 mmol/L (21.0-32.0); Chloride 103 mmol/L (98-107); Chol HDL Ratio 2.8; Cholesterol 192 mg/dL (<=200); Estimated GFR (African America >60 (>=60); Estimated GFR (Non-African Ame >60 (>=60); Globulin 3.5 g/dL; Glucose 83 mg/dL (74-106); HDL Cholesterol 69 mg/dL (40-60); Potassium 3.8 mmol/L (3.5-5.1); Sodium 140 mmol/L (136-145); Thyroid Stimulating Hormone 0.942 uIU/mL (0.358-3.740); Total Protein 7.2 g/dL (6.4-8.2); Triglycerides 33 mg/dL (<=150); VLDL CHOLESTEROL 6.6 mg/dL
== END 2023-09-12 09:08 | disposition home or self-care (01) ==
LOC: MAMMO 09:07
PROVIDERS: Visit Provider Physician Assistant
DX: Z00.00 Encounter for general adult medical examination without abnormal findings (principal); R22.1 Localized swelling, mass and lump, neck; N63.14 Unspecified lump in the right breast, lower inner quadrant
CPT/HCPCS: 36415; 76642; 77066; 80053; 80061; 83036; 84443; 85025; G0279

== ENCOUNTER 2024-05-26 14:57 | Outpatient (OUT) | payer BC, SELFPAY ==
--- NOTE | 2024-05-26 14:59 | US_ITS ---
[address] [address] Patient Name: GEOFF GONZALEZ MRN: [id number] date: 1985 Sex: F Assigned Patient Location: US Current Patient Location: US Accession/Order Number: [id number] Exam Date: 05/26/2024 15:00 Report Date: 05/26/2024 16:00 At the request of: GWYN MARIN Procedure: US pelvis w/ transvaginal EXAMINATION: US pelvis w/ transvaginal HISTORY: Polycystic Ovarian Syndrome E28.2 ; heavy periods COMPARISON: No relevant comparison available. TECHNIQUE: Transabdominal and/or transvaginal sonographic examination was performed as indicated by examination type. FINDINGS: UTERUS: Normal size and appearance. Uterus size: 11.7 x 5.6 x 5.4 cm ENDOMETRIUM: Normal homogeneous appearance. Endometrial thickness: 9 mm RIGHT OVARY: Contains a 3.7 cm benign-appearing cyst. Duplex Doppler demonstrates normal waveform and flow; resistive index 0.5. Ovary size: 3.8 x 3.4 x 4.3 cm LEFT OVARY: Contains a 2.5 cm benign-appearing cyst. Duplex Doppler demonstrates normal waveform and flow; resistive index 0.5. Ovary size: 3.2 x 2.7 x 3.1 cm CUL-DE-SAC: Unremarkable. No significant free fluid. BLADDER: Unremarkable. OTHER: Prominent left periuterine vessels; pelvic vascular congestion? US/US pelvis w/ transvaginal IMPRESSION: 1. Prominent benign-appearing ovarian cysts bilaterally. No additional follow-up is recommended. 2. Unremarkable uterus and endometrium. No specific findings to account for patient's symptoms. Electronically authenticated by: JOAQUIN MENARD Date: 05/26/2024 16:00
--- OUTSIDE RECORDS SUMMARY | 2024-05-26 15:07 | XMS_ITS | CCD ---
Author Organization [facility]iniSym[facility] Care Team Providers Care Alarm Operator Name Role Phone DenaeMirtha Unavailable Unavaila ble None Unavailable Unavailable Maday, [...] Unavailable Maday, Ramonita Unavailable Unavailable DENNISE ., LEIA Consulting Unavailable DENNISE ., LEIA Admitting Unavailable DENNISE ., LEIA Attending Unavailable DENNISE ., LEIA Consulting Unavailable DENNISE ., LEIA Admitting Unavailable DENNISE ., LEIA Attending Unavailable SOLO, JONATAN Attending Unavailable SOLO, JONATAN Consulting Unavailable SOLO, JONATAN Admitting Unavailable SAMSA, VALENTINE Attending Unavailable SAMSA, VALENTINE Consulting Unavailable SAMSA, VALENTINE Admitting Unavailable DENNISE, LEIA Attending Unavailable TIERNEY Bowden Attending Provider NON STAFF Primary Care Provider Unavailabl e NONE, XXXX Primary Care Physician Unavailab Rakesh Varela Primary Care Physician REF PROV, NOT IN SYSTEM Referring Unavaila ble CAS BASHIR Referring Unavailable NILLOscar Attending Unavailable NILLOscar Attending Unavailable NILLOscar Referring Unavailable NILL, Oscar Levine Admitting Unavailable NILL, Oscar Levine Attending Unavailable Nill Oscar RECINOS Attending Provider NO FAMILY, PHYSICIAN Primary Care Provider Unava ilable Leia Bowden L Attending Unavailable NON STAFF Primary Care Unavailable Leia Bowden Admitting Unavailable NO FAMILY, PHYSICIAN Primary Care Unavailable Oscar London Admitting Unavailable Oscar London Attending Unavailable Allergies Allergy Classification Reported Allergen(s) Allergy Type Date of Onset Reaction(s) Facility (2 sources) cefprozil; Translations: [CEFPROZIL] Drug Allergy 8 [facility] Repository (1 source) cefprozil; Translations: [cefprozil] Drug Allergy Eruption of skin (disorder) [facility] (1 source) Unable to Assess Drug allergy (disorder) [facility] Repository Medications Current Medications Medication Drug Class(es) Dates Sig (Normalized) Sig (Original) BuPROPion (Eqv-Wellbutrin SR) 150 mg/12 hours oral tablet, extended release (1 source) Start: 10-18-2023 BuPROPion (Eqv-Wellbutrin SR) 150 mg/12 hours oral tablet, extended release 150 mg = 1 tab(s), Oral, Daily, Refills(s) 0 Start Date: 10/18/23 Status: Ordered levothyroxine sodium 0.1 mg oral tablet (2 sources) l-Thyroxine Start: 10-18-2023 take 1 tablet by mouth once daily levothyroxine 100 mcg (0.1 mg) Tab 100 mcg = 1 tab(s), Oral, Daily, Refills(s) 0 Start Date: 10/18/23 Status: Ordered spironolactone 50 mg oral tablet (2 sources) Aldosterone Antagonist Start: 10-18-2023 take 1 tablet by mouth once daily spironolactone 50 mg Tab 50 mg = 1 tab(s), Oral, Daily, Refills(s) 0 Start Date: 10/18/23 Status: Ordered Problems Active Problems Problem Classification Problem Date [...] DISORDERS, RIGHT HIP] Onset: 02-20-2018 Episodic Other nutritional; endocrine; and metabolic disorders (1 source) Overweight 11-08-2023 Episodic Other nutritional; endocrine; and metabolic disorders (1 source) Overweight in adulthood with body mass index of 25 or more but less than 30 11-08-2023 Episodic Other screening for suspected conditions (not mental disorders or infectious disease) (8 sources) Encounter for screening for malignant neoplasm of cervix; Translations: [Magnetic resonance imaging of breast abnormal] Onset: 08-21-2022 Episodic Other upper respiratory infections (5 sources) Acute pharyngitis, unspecified; Translations: [ACUTE PHARYNGITIS, UNSPECIFIED] Onset: 02-26-2018 Episodic Thyroid disorders (3 sources) Hypothyroidism, unspecified; Translations: [Hypothyroidism] Onset: 07-22-2017 10-18-2023 Chronic Unclassified (1 source) Unknown / UNK(Unknown) Onset: 02-27-2017 Past or Other Problems Problem Classification Problem Date Documented Da te Episodic/Chronic Genitourinary symptoms and ill-defined conditions (2 sources) Dysuria; Translations: [Frequency of micturition] Onset: 07-08-2017 Episodic Nonmalignant breast conditions (3 sources) Lump of lower outer quadrant of breast; Translations: [Unspecified lump in the right breast, lower outer quadrant] Onset: 10-16-2023 10-18-2023 Episodic Other non-traumatic joint disorders (1 source) Pain in right hip; Translations: [PAIN IN RIGHT HIP] Onset: 08-26-2017 Episodic Results Test Name Value Interpretation Reference Range Facility MR breast BI wo/w con CADon 05-01-2024 MR breast BI wo/w con CAD [facility] [place] [address] MRI Report Signed Patient: Geoff Gonzalez MR#: [id number] : 1985 Acct:[id number] Age/Sex: 38 / F ADM Date: 05/01/24 Loc: MR Room: Type: [facility] Attending Dr: Oscar London MD FACS Copies to: Oscar London MD FACS Ordering Provider: Oscar London MD FACS Date of Service: 05/01/24 MR/MR breast BI wo/w con CAD: R92.8 BILATERAL BREAST MRI WITHOUT AND WITH INTRAVENOUS CONTRAST CLINICAL HISTORY: Follow-up right breast mass postbiopsy and clip placement. Patient denies cancer diagnosis per screening form. COMPARISON: Outside imaging correlate is dating 12/02/2023. Breast MRI 10/16/2023 TECHNIQUE: Multisequence, multiplanar imaging of the breasts were obtained before and after the use of IV contrast. All imaged data was reviewed using the Peak system. The postcontrast images were subtracted and CAD mapping of the enhancement kinetics was performed. Kinetic curves were generated. 2D and 3D MIP images were also reviewed. FINDINGS: The breasts are composed of heterogeneously dense fibroglandular tissue with moderate background parenchymal enhancement. No suspicious masslike or nonmass-like areas of enhancement are seen within the left breast. A masslike area of enhancement is seen involving at the approximately 6:00 position of the right breast, posterior depth measuring 6 mm in the AP, 4 mm in the transverse and 5 mm in the craniocaudal dimensions. Finding is unchanged compared to the prior MRI study. Blooming from a biopsy clip is seen approximately 4 cm anterior to this masslike area of enhancement. No chest wall abnormality. No suspicious intramammary or axillary lymph nodes. MR/MR breast BI wo/w con CAD IMPRESSION: THE PREVIOUSLY IDENTIFIED MASSLIKE AREA OF ENHANCEMENT INVOLVING THE APPROXIMATELY 6:00 POSITION OF THE RIGHT BREAST POSTERIOR DEPTH IS UNCHANGED WHEN COMPARED TO THE PRIOR MRI STUDY WITH THE BIOPSY CLIP APPROXIMATELY 4 CM ANTERIOR TO THIS MASSLIKE AREA OF ENHANCEMENT. MRI GUIDED BIOPSY SHOULD BE CONSIDERED. RESULT CODE: 4b Suspicious Abnormality - Biopsy Intermediate Suspicion FOLLOW UP: BIO Impression dictated by: Tc Snider Jr., D.OAdan05/01/2024 3:17 PM Dictation Location: [place] [address] Transcribed By: [facility] 05/01/24 1517 Dictated By: Tc Snider Jr, DO 05/01/24 1507 Signed By: 05/01/24 1517 Normal [facility] Magnetic resonance imaging r eportOrdered By: Tc Snider on 05-01-2024 Study report [facility] [place] [address] MRI Report Signed Patient: Geoff Gonzalez MR#: [id number] : 1985 Acct:[id number] Age/Sex: 38 / F ADM Date: 5 Loc: Room: Type: [facility] Attending Dr: Oscar London MD FACS Copies to: Oscar London MD FACS~ Ordering Provider: Oscar London MD FACS Date of Service: 05/01/24 MR/MR breast BI wo/w con CAD: R92.8 BILATERAL BREAST MRI WITHOUT AND WITH INTRAVENOUS CONTRAST CLINICAL HISTORY: Follow-up right breast mass postbiopsy and clip placement. Patient denies cancer diagnosis per screening form. COMPARISON: Outside imaging correlate is dating 12/02/2023. Breast MRI 10/16/2023 TECHNIQUE: Multisequence, multiplanar imaging of the breasts were obtained before and after the use of IV contrast. All imaged data was reviewed using thePeak system. The postcontrast images were subtracted and CAD mapping of the enhancement kinetics was performed. Kinetic curves were generated. 2D and 3D MIP images were also reviewed. FINDINGS: The breasts are composed of heterogeneously dense fibroglandular tissue with moderate background parenchymal enhancement. No suspicious masslike or nonmass-like areas of enhancement are seen within the left breast. A masslike area of enhancement is seen involving at the approximately 6:00 position of the right breast, posterior depth measuring 6 mm in the AP, 4 mm in the transverse and 5 mm in the craniocaudal dimensions. Finding is unchanged compared to the prior MRI study. Blooming from a biopsy clip is seen approximately 4 cm anterior to this masslike area of enhancement. No chest wall abnormality. No suspicious intramammary or axillary lymph nodes. MR/MR breast BI wo/w con CAD IMPRESSION: THE PREVIOUSLY IDENTIFIED MASSLIKE AREA OF ENHANCEMENT INVOLVING THE APPROXIMATELY 6:00 POSITION OF THE RIGHT BREAST POSTERIOR DEPTH IS UNCHANGED WHEN COMPARED TO THE PRIOR MRI STUDY WITH THE BIOPSY CLIP APPROXIMATELY 4 CM ANTERIOR TO THIS MASSLIKE AREA OF ENHANCEMENT. MRI GUIDED BIOPSY SHOULD BE CONSIDERED. RESULT CODE: 4b Suspicious Abnormality - Biopsy Intermediate Suspicion FOLLOW UP: BIO Impression dictated by: Tc Snider Jr. D.OAdan05/01/2024 3:17 PM Dictation Location: [place] [address] Transcribed By: MICHELE 05/01/24 8600 Dictated By: Tc Snider Jr, DO 05/01/24 1507 Signed By: 05/01/24 1517 [facility] Reminderson 03-30-2024 Reminders Reminders From: Randi Marion LPN To: N - Clinical; Sent: 12/09/2023 16:03:34 EDT Show up: 03/30/2024 07:00:00 EST Subject: MRI breast recall Due Date/Time: 04/16/2024 07:00:00 EST Reminder/Recall Patient due for right breast MRI 04/16/24 to monitor area post biopsy of fibroadipose tissue. (have completed at [facility]) Order faxed to [facility]. Prior auth completed and approved. Scheduling on hold until April schedule is available. Patient notified. Normal [facility] MAMM POST BX DIAG UNI RTon 0 12-09-2023 MAMM POST BX DIAG UNI RT MAMM POST BX DIAG UNI RT *ADDENDUM*Addendum issued for newly received pathology results, 12/09/2023 10:03 AM: For the 6:00 right breast biopsy site there are pathology results of benign fibroadipose tissue with breast elements. See dedicated pathology report for further detail. Results are benign and concordant with imaging findings. Recommend six-month follow-up MRI to ensure stability of the findings within the left breast described on outside MRI. Finalized by Cas Bashir MD on 12/09/2023 10:25 AM 1999 Normal [facility] US BX BREAST US GUID INITIAL RTon 12-09-2023 US BX BREAST US GUID INITIAL RT US BX BREAST US GUID INITIAL RT *ADDENDUM*Addendum issued for newly received pathology results, 12/09/2023 10:03 AM: For the 6:00 right breast biopsy site there are pathology results of benign fibroadipose tissue with breast elements. See dedicated pathology report for further detail. Results are benign and concordant with imaging findings. Recommend six-month follow-up MRI to ensure stability of the findings within the left breast described on outside MRI. Finalized by Cas Bashir MD on 12/09/2023 10:25 AM 1999 Normal [facility] Surgical Pathologyon 024 Surgical Pathology Normal [facility] Comment on above: Result Comment: [facility] [address] [place] [address] Surgical Pathology Consultation Patient Name:JAMIE GONZALEZB:1985 (Age: 38)Gender:FTaken:4Reported:12/06/2023hysician(s):ZEINAB Carballoopy To:CAS Camachoession #:[id number]. Rec. #:[id number]: #[id number] Final Pathologic Diagnosis Right breast, 6 o'clock, 3cmfn, mass, biopsy: Benign fibroadipose tissue with benign breast elements Lymph node or neoplastic mass-like lesion is not identified Comment: Multiple deeper levels examined microscopically. The above findings can be seen in the setting of benign hamartoma such as adenolipoma in this specimen. If pathologic findings do not match clinical or radiologic suspicion, recommend repeat biopsy as clinically indicated. Report Electronically Signed Out nsk/12/06/2023Giovanna Hays MD Interpretation performed at [facility], [address] [place] [address], License number: [id number]. Clinical History Biopsy procedure: Ultrasound; Target: Mass; Laterality: Right breast; Location: 6:00 3cmfn; BI-RAD: 4b; Suspect: Cancer vs. Lymph node. Gross Description Received in formalin labeled CARLOS, right breast tissue are 5 fibroadipose tissue cores ranging from 1-1.7 cm, and a 1.4 x 0.6 x 0.2 cm aggregate of yellow, lobulated soft tissue bits. The cores are submitted entirely in cassette A- B and the aggregated soft tissue is submitted in cassette C. Time incised: 914 Time in formalin: 918 Cold ischemic time: 4 minutes Time in formalin before processin hours (3,ns,[id number], m6) MW mxw/12/02/2023GP Specimen(s) Received Right breast Fee Codes(s): 1; 98347 US BREAST RT LIMITEDon 12-01 US BREAST RT LIMITED US BREAST RT LIMITED EXAM: US BREAST RT LIMITED, 12/02/2023 8:13 AM CLINICAL INDICATIONS:Abnormal MRI. Abnormal MRI with recommendation for biopsy from outside institution, ultrasound evaluation of the 6:00 right breast COMPARISON: Outside MRI 10/16/2023, ultrasound 09/12/2023 TECHNIQUE: Multiple real-time leblanc-scale images of the right breast in the 6 o'clock axis were performed. Color Doppler was utilized to assess vascular flow. FINDINGS: Within the 6:00 right breast, 3 cm from the nipple, there is a irregular hypoechoic masslike area with internal vascularity. This measures up to 0.8 x 0.3 x 0.7 cm. This may correlate with the area of enhancement on MRI. No additional solid suspicious foci are identified. IMPRESSION: There is a 8 mm masslike area of hypoechoic tissue with central vascularity which is of low suspicion for malignancy differential diagnosis includes an intramammary lymph node. Ultrasound-guided biopsy is recommended for tissue diagnosis. If results are discordant, recommend six-month follow-up MRI to ensure stability of the prior MRI finding. BI-RADS: BI-RADS 4A - Suspicious Findings. Low suspicion for malignancy. Recommendation: Biopsy is recommended Same-day biopsy will be performed, discussed with patient. Finalized by Cas Bashir MD on 12/02/2023 9:48 AM 4A BIOPSY Normal [facility] Ambulatory Visit Summaryon 0 11-08-2023 Ambulatory Visit Summary Ambulatory Visit Summary CARLOSGEOFF Membreno :1985 Visit Date:11/08/2023 Ambulatory Visit Instructions Your Care Team Attending Physician - ZAK RECINOS, Oscar Levine Primary Care Physician - Rakesh MARIN DO This Is Your Medications List Contact prescribing physician if questions or concerns levothyroxine (levothyroxine 100 mcg (0.1 mg) Tab) spironolactone (spironolactone 50 mg Tab) Procedures Performed Thyroidectomy. Discharge Vitals Heart Rate (Peripheral) 72 Respiratory Rate 16 Blood Pressure 113/72 Height 160 cm Height 63 in Weight 74.8 kg Weight 164.56 lb BMI 29.22 Medications What How Much When Instructions Unchanged levothyroxine (levothyroxine 100 mcg (0.1 mg) Tab) 1 Tablets By Mouth Every day Contact prescribing physician if questions or concerns Unchanged spironolactone (spironolactone 50 mg Tab) 1 Tablets By Mouth Every day Contact prescribing physician if questions or concerns Allergies Cefzil (Rash) Problems Ongoing - Any problem that you are currently receiving treatment for. Abnormal MRI, breast BMI 29.0-29.9,adult Hypothyroidism Mass of lower outer quadrant of right breast Overweight Patient Survey You may receive a survey via text or e-mail asking about your office visit. Please share your experience with us by completing your survey. We appreciate your feedback and thank you for choosing us for your care. Normal [facility] US Breast Unilateral Rt Naz kaur 10-29-2023 US Breast Unilateral Rt Limited Exam Date/Time: 10/29/2023 13:40 EDT Reason for Exam: N63.13;Breast Mass / Nodule Report IMPRESSION: BIRADS 2 BENIGN FINDINGS, NORMAL INTERVAL FOLLOW-UP Follow-up: 12 MONTH RECALL Density: Heterogeneously dense. EXAM: US Breast Unilateral Rt Limited DATE: 10/29/2023 CLINICAL HISTORY: Breast Mass / Nodule, N63.13. COMPARISONS: Outside breast MRI 10/16/2023, diagnostic mammograms and right breast ultrasound 09/12/2023, and screening mammograms 08/28/2022 and 09/13/2021. TECHNIQUE: Directed ultrasound was performed of the right breast at a palpable area of concern, with a regional survey. FINDINGS: No suspicious finding is identified at the palpable area of concern or elsewhere in the right breast to target biopsy. Routine follow-up imaging is suggested. Board Certified Radiologists. Accredited by the ACR and FDA. MAMMOGRAPHY IS VERY IMPORTANT TO YOUR HEALTH. THE CURRENT [place] [employer] GUIDELINES RECOMMENDS ANNUAL MAMMOGRAPHY BEGINNING AT AGE 40. THIS FACILITY UTILIZES A REMINDER SYSTEM TO ENSURE ALL PATIENTS RECEIVE REMINDER NOTIFICATIONS AT THE APPROPRIATE TIME BASED ON THE RECOMMENDATIONS OF THIS EXAM. Report Ordering Provider: Oscar LONDON FINAL REPORT Dictated: 10/29/2023 1:52 pm Joe Lemus MD Signed (Electronic Signature): 10/29/2023 1:52 pm Signed by: Joe Lemus MD Transcribed by: LOLITA Technologist: MARYBETH, Assessment: BI-RADS Category 2-Benign finding Recommendation: Normal interval follow-up Normal [facility] MR breast BI wo/w con CADon 10-16-2023 MR breast BI wo/w con CAD [facility] [place] [address] MRI Report Signed Patient: Geoff Gonzalez MR#: [id number] : 1985 Acct:[id number] Age/Sex: 38 / F ADM Date: 10/16/23 Loc: MR Room: Type: [facility] Attending Dr: Leia Bowden PA-C Copies to: Leia PERALTA Ordering Provider: Leia PERALTA Date of Service: 10/16/23 MR/MR breast BI wo/w con CAD: N63.10 BILATERAL BREAST MRI WITHOUT AND WITH INTRAVENOUS CONTRAST CLINICAL HISTORY: Right breast mass. COMPARISON: Outside it right breast diagnostic mammogram and ultrasound 09/12/2023. TECHNIQUE: Multisequence, multiplanar imaging of the breasts were obtained before and after the use of IV contrast. All imaged data was reviewed using the Peak system. The postcontrast images were subtracted and CAD mapping of the enhancement kinetics was performed. Kinetic curves were generated. 2D and 3D MIP images were also reviewed. FINDINGS: The breasts are composed of heterogeneously dense fibroglandular tissue with moderate background parenchymal enhancement. Nonspecific enhancing foci are seen within both breasts. No suspicious masslike or nonmass-like areas of enhancement are seen within the left breast. A masslike area of enhancement is seen involving at the approximately 6:00 position of the right breast, posterior depth measuring 6 mm in the AP, 4 mm in the transverse and 5 mm in the craniocaudal dimensions. Finding may represent the abnormality seen by ultrasound. No chest wall abnormality. No suspicious intramammary or axillary lymph nodes. MR/MR breast BI wo/w con CAD IMPRESSION: A SUSPICIOUS MASSLIKE AREA OF ENHANCEMENT IS SEEN AT THE APPROXIMATELY 6:00 POSITION OF THE RIGHT BREAST, POSTERIOR DEPTH MEASURING 6 MM IN AP, 4 MM IN THE TRANSVERSE AND 5 MM IN THE CRANIOCAUDAL DIMENSIONS POSSIBLY REPRESENTING THE ABNORMALITY MEASURED BY ULTRASOUND. ULTRASOUND-GUIDED BIOPSY IS SUGGESTED WITH POSSIBLE MRI POST BIOPSY TO CONFIRM CLIP PLACEMENT IN THE AREA OF ABNORMAL ENHANCEMENT ON THE MRI. IF DISCORDANT, MRI GUIDED BIOPSY IS SUGGESTED. RESULT CODE: 4b Suspicious Abnormality - Biopsy Intermediate Suspicion FOLLOW UP: BIO Impression dictated by: Tc Snider Jr., D.OAdan10/17/2023 11:30 AM Dictation Location: [place] [address] Transcribed By: [facility] 10/17/23 1130 Dictated By: Tc Snider Jr, DO 10/16/23 1638 Signed By: 10/17/23 1130 Normal [facility] PAP ACOG PANEL 2: 30 to 65on 08-29-2022 . . Normal [facility] Comment on above: Result Comment: Perf ormed at: WB Performed By: #### [id number] #### [facility] [address] [place] [address] [address] Harshal Valenzuela Age Gdln ACOG Testing 30-65 Normal [facility] Comment on above: Performed By: #### [id number] #### [facility] [address] [place] [address] [address] Harshal Valenzuela DIAGNOSIS: Comment Normal [facility] Comment on above: Result Comment: NEGA TIVE FOR INTRAEPITHELIAL LESION OR MALIGNANCY. Performed at: WB Performed By: #### [id number] #### [facility] [address] [place] [address] [address] Harshal Valenzuela HPV Aptima Negative Normal Negative [facility] Comment on above: Result Comment: This nucleic acid amplification test detects fourteen high-risk HPV types (16,18,31,33,35,39,45,51,52,56,58,59,66,68) without differentiation. Performed at: =G Performed By: #### [id number] #### [facility] [address] [place] [address] [address] Harshal Valenzuela HPV Genotype Reflex Comment Normal [facility] Comment on above: Result Comment: Crit eria not met, HPV Genotype not performed. Performed at: WB Performed By: #### [id number] #### [facility] [address] [place] [address] [address] Harshal Valenzuela Methodology: Comment Normal [facility] Comment on above: Result Comment: This liquid based ThinPrep(R) pap test was screened with the use of an image guided system. Performed at: WB Performed By: #### [id number] #### [facility] [address] [place] [address] Dr. Harshal Valenzuela Note: Comment Normal [facility] Comment on above: Result Comment: The Pap smear is a screening test designed to aid in the detection of premalignant and malignant conditions of the uterine cervix. It is not a diagnostic procedure and should not be used as the sole means of detecting cervical cancer. Both false-positive and false-negative reports do occur. . Performed at: WB Performed By: #### [id number] #### [facility] [address] [place] [address] Dr. Harshal Valenzuela Performed by: Comment Normal [facility] Comment on above: Result Comment: Carin Paredes, Automotive Warranty Administrator (ASCP) Performed at: WB Performed By: #### [id number] #### [facility] [address] [place] [address] Dr. Harshal Valenzuela Specimen adequacy: Comment Normal [facility] Comment on above: Result Comment: Sati sfactory for evaluation. No endocervical component is identified. Performed at: WB Performed By: #### [id number] #### [facility] [address] [place] [address] Dr. Harshal Valenzuela MG MAMM SCREEN 3D LM CADon 08-28-2022 MG MAMM SCREEN 3D LM CAD Patient: GEOFF GONZALEZ Exam Date: 08/28/2022 : 1985 Gender:F Ordering : FENG BOWDEN . Admission #: [id number] Family : Order #: [id number] CLICK HERE TO VIEW EXAM RADIOLOGY REPORT PROCEDURE: MAMMOGRAM SCREENING 3D BILATERAL CAD COMPARISON: MG MAMM SCREEN 3D LM CAD, 09/13/2021. MG MAMM SCREEN 3D LM CAD, 01/13/2020. MG MAMM LM DIAG W CAD, 10/06/2018. INDICATIONS: Screening mammography Calculator Name NCI Breast Cancer Risk Assessment Tool 5 Year Breast Cancer Risk 0.80% Lifetime Breast Cancer Risk 14.90% Personal Breast Cancer No Personal Ovarian Cancer No Treatments None Family Cancers None LOCATION: [facility] BREAST COMPOSITION: Extremely dense, which lowers the [...] Chambers M.D. on 08/30/2022 at 13:15 Normal [facility] GROUP A STREP CULTUREon 07-22 S. pyogenes Ag Ql (Unsp spec) Culture Observations: NEGATIVE FOR GROUP A STREPTOCOCCUS. Normal [facility] Comment on above: Performed By: #### G RASTCX, SSCRN #### [facility] [address] [place] [address] Dr. Harshal Valenzuela STREPT SCREENon 08-16-2022 STREP SCREEN A Negative Normal NEGATIVE [facility] Comment on above: Performed By: #### G RASTCX, SSCRN #### [facility] [address] [place] [address] Dr. Harshal Valenzuela QUANTIFERON TB GOLD PLUSon 05-06-2021 QuantiFERON Criteria Comment [facility] [facility] Comment on above: Result Comment: Danielito [...] test. Performed By: #### Q NTTB #### [facility] [address] [place] [address] Dr. Harshal Valenzuela QuantiFERON Mitogen Value >10.00 Normal [facility] Comment on above: Performed By: #### Q NTTB #### [facility] [address] [place] [address] Dr. Harshal Valenzuela QuantiFERON Nil Value 0.04 IU/mL Normal [facility] Comment on above: Performed By: #### Q NTTB #### [facility] [address] [place] [address] Dr. Harshal Valenzuela QuantiFERON TB1 Ag Value 0.03 IU/mL Normal [facility] Comment on above: Performed By: #### Q NTTB #### [facility] [address] [place] [address] Dr. Harshal Valenzuela QuantiFERON TB2 Ag Value 0.03 IU/mL Normal [facility] Comment on above: Performed By: #### Q NTTB #### [facility] [address] [place] [address] Dr. Harshal Valenzuela QuantiFERON Incubation Incubation performed. Normal [facility] Comment on above: Performed By: #### Q NTTB #### [facility] [address] [place] [address] Dr. Harshal Valenzuela QuantiFERON-TB Gold Plus Negative Normal Negative [facility] Comment on above: Result Comment: No r esponse to M tuberculosis antigens detected. Infection with M tuberculosis is unlikely, but high risk individuals should be considered for additional testing (ATS/IDSA/CDC Clinical Practice Guidelines, 2017). The reference range is an Antigen minus Nil result of <0.35 IU/mL. Chemiluminescence immunoassay methodology Performed By: #### Q NTTB #### [facility] [address] [place] [address] Dr. Harshal Valenzuela HEPATITIS B SURFACE ANTIBODY , QUANTon 03-03-2022 Hepatitis B Surf AB Quant 23.6 mIU/mL Normal Immunity>9.9 [facility] Comment on above: Result Comment: Stat us of Immunity Anti-HBs Level Inconsistent with Immunity 0.0 - 9.9 Consistent with Immunity >9.9 Performed By: #### H EPBSRF #### [facility] [address] [place] [address] Dr. Harshal Valenzuela MMR IMMUNITYon 03-03-2022 Mumps Abs, IgG <9.0 Critically low Immune >10.9 [facility] Comment on above: Result Comment: Nega tive <9.0 Equivocal 9.0 - 10.9 Positive >10.9 A positive result generally indicates past exposure to Mumps virus or previous vaccination. Performed By: #### M MRIMMU #### [facility] [address] [place] [address] Dr. Harshal Valenzuela Rubella Antibodies, IgG <0.90 Critically low Immune >0.99 [facility] Comment on above: Result Comment: Non- immune <0.90 Equivocal 0.90 - 0.99 Immune >0.99 Performed By: #### M MRIMMU #### [facility] [address] [place] [address] Dr. Harshal Valenzuela Rubeola Ab, IgG 52.5 AU/mL Normal Immune >16.4 [facility] Comment on above: Result Comment: Nega tive <13.5 Equivocal 13.5 - 16.4 Positive >16.4 Presence of antibodies to Rubeola is presumptive evidence of immunity except when acute infection is suspected. Performed By: #### M MRIMMU #### [facility] [address] [place] [address] Dr. Harshal Valenzuela VARICELLA IGG ABon 2 Varicella Zoster IgG 394 index Normal Immune >165 [facility] Comment on above: Result Comment: Nega tive <135 Equivocal 135 - 165 Positive >165 A positive result generally indicates exposure to the pathogen or administration of specific immunoglobulins, but it is not indication of active infection or stage of disease. Performed By: #### V ARCEL #### [facility] [address] [place] [address] [address] [address] Harshal Valenzuela CMV IGG ANTIBODYon 8 CMV IGG ANTIBODY 1.50 U/mL Abnormal <0.60 [facility] Comment on above: Order Comment: REASO N FOR EXAM E03.9 Result Comment: U/mL Interpretation <0.60 Negative0.60 - 0.69 Equivocal> or = 0.70 PositiveA positive result indicates that the patient hasantibody to CMV. It does not differentiate betweenan active or past infection.Test Performed by [employer],[address] [place], [place] [address]MwtmjeyKori Jaffe M.D., Ph.D., Director of [phone], CLIA [id number] CMV IGM ANTIBODYon 8 CMV IGM ANTIBODY <30.00 Normal <30.00 [facility] Comment on above: Order Comment: REASO N FOR EXAM E03.9 Result Comment: AU/m L Interpretation < 30.00 No Antibody Dgohljqc07.00 - 34.99 Equivocal > or = 35.00 [...] in two or more weeks.Test Performed by [facility],[address] [place], [place] [address]ByveblyKori Jaffe M.D., Ph.D., Director of [phone], CLIA [id number] EBV VIRAL CAPSID AB IGGon EBV VIRAL CAPSID AB IGG 428.00 U/mL Abnormal <18.00 [facility] Comment on above: Order Comment: REASO N FOR EXAM E03.9 Result Comment: U/mL Interpretation <18.00 Fdbgxukm90.00 - 21.99 Equivocal >21.99 PositiveTest Performed by [facility],[address] [place], [place] [address]WrgydmsKori Jaffe M.D., Ph.D., Director of [phone], CLIA [id number] EBV VIRAL CAPSID AB IGMon EBV VIRAL CAPSID AB IGM <36.00 Normal <36.00 [facility] Comment on above: Order Comment: REASO N FOR EXAM E03.9 Result Comment: U/mL Interpretation <36.00 Sgvpbrpv01.00 - 43.99 Equivocal >43.99 PositiveTest Performed by [employer] [facility],[address] [place] [address]Eqmpyankevon Jaffe M.D., Ph.D., Director of [phone], CLIA [id number] COMPLETE BLOOD COUNTon 02-26 ABSOLUTE SEGS 3400 /cmm Normal 6428-2209 [facility] Comment on above: Order Comment: REASO N FOR EXAM E03.9 Performed By: #### T 4F, TSH ####MAIN LABCLIA:[id number] [place] [address] Basophils Auto #/vol (Bld) 100 /cmm Normal <216 [facility] Comment on above: Order Comment: REASO N FOR EXAM E03.9 Performed By: #### T 4F, TSH ####MAIN LABCLIA:[id number] [place] [address] Basophils/100 WBC Auto (Bld) 0.8 % Normal <2.0 [facility] Comment on above: Order Comment: REASO N FOR EXAM E03.9 Performed By: #### T 4F, TSH ####MAIN LABCLIA:[id number] [place] [address] Eosinophils Auto #/vol (Bld) 100 /cmm Normal <432 [facility] Comment on above: Order Comment: REASO N FOR EXAM E03.9 Performed By: #### T 4F, TSH ####MAIN LABCLIA:[id number] [place] [address] Eosinophils/100 WBC Auto (Bld) 1.1 % Normal <4.0 [facility] Comment on above: Order Comment: REASO N FOR EXAM E03.9 Performed By: #### T 4F, TSH ####MAIN LABCLIA:[id number] [facility] [place] [address] Erythrocyte distribution width Auto Ratio (RBC) 13.1 % Normal 11.5-14.5 [facility] Comment on above: Order Comment: REASO N FOR EXAM E03.9 Performed By: #### T 4F, TSH ####MAIN LABCLIA:[id number] [place] [address] Hematocrit Auto Volume Fraction (Bld) 38.1 % Normal 38.0-47.0 [facility] Comment on above: Order Comment: REASO N FOR EXAM E03.9 Performed By: #### T 4F, TSH ####MAIN LABCLIA:[id number] [place] [address] Hemoglobin mass conc (Bld) 12.9 g/dL Normal 12.0-16.4 [facility] Comment on above: Order Comment: REASO N FOR EXAM E03.9 Performed By: #### T 4F, TSH ####MAIN LABCLIA:[id number] [place] [address] Lymphocytes Auto #/vol (Bld) 2300 /cmm Normal 960-4752 [facility] Comment on above: Order Comment: REASO N FOR EXAM E03.9 Performed By: #### T 4F, TSH ####MAIN LABCLIA:[id number] [place] [address] Lymphocytes/100 WBC Auto (Bld) 34.0 % Normal 20.0-44.0 [facility] Comment on above: Order Comment: REASO N FOR EXAM E03.9 Performed By: #### T 4F, TSH ####MAIN LABCLIA:[id number] [facility] [place] [address] MCH Auto Entitic mass (RBC) 33.7 g/dL Normal 32.0-36.0 [facility] Comment on above: Order Comment: REASO N FOR EXAM E03.9 Performed By: #### T 4F, TSH ####MAIN LABCLIA:[id number] [place] [address] MCH Auto Entitic mass (RBC) 28.7 pg Normal 27.0-31.0 [facility] Comment on above: Order Comment: REASO N FOR EXAM E03.9 Performed By: #### T 4F, TSH ####MAIN LABCLIA:[id number] [facility] [place] [address] MCV Auto Entitic volume (RBC) 85.1 fL Normal 80.0-96.0 [facility] Comment on above: Order Comment: REASO N FOR EXAM E03.9 Performed By: #### T 4F, TSH ####MAIN LABCLIA:[id number] [facility] [place] [address] Monocytes Auto #/vol (Bld) 900 /cmm Normal 96-972 [facility] Comment on above: Order Comment: REASO N FOR EXAM E03.9 Performed By: #### T 4F, TSH ####MAIN LABCLIA:[id number] [facility] [place] [address] Monocytes/100 WBC Auto (Bld) 13.6 % High 2.0-9.0 [facility] Comment on above: Order Comment: REASO N FOR EXAM E03.9 Performed By: #### T 4F, TSH ####MAIN LABCLIA:[id number] [facility] [place] [address] Neutrophils/100 WBC Auto (Bld) 50.5 % Normal 50.0-70.0 [facility] Comment on above: Order Comment: REASO N FOR EXAM E03.9 Performed By: #### T 4F, TSH ####MAIN LABCLIA:[id number] [facility] [place] [address] Platelets Auto #/vol (Bld) 248 10 3/cmm Normal 130-400 [facility] Comment on above: Order Comment: REASO N FOR EXAM E03.9 Performed By: #### T 4F, TSH ####MAIN LABCLIA:[id number] [place] [address] RBC Auto #/vol (Bld) 4.48 10 6/cmm Normal 4.20-5.40 [facility] Comment on above: Order Comment: REASO N FOR EXAM E03.9 Performed By: #### T 4F, TSH ####MAIN LABCLIA:[id number] [place] [address] WBC Auto #/vol (Bld) 6.8 10 3/cmm Normal 4.8-10.8 [facility] Comment on above: Order Comment: REASO N FOR EXAM E03.9 Performed By: #### T 4F, TSH ####MAIN LABCLIA:[id number] [place] [address] MONONUCLEOSIS SCREENon 02-26 MONONUCLEOSIS SCREEN Negative Normal [facility] Comment on above: Order Comment: REASO N [...] Performed By: #### T 4F, TSH ####MAIN LABCLIA:[id number] [place] [address] MRI HIPon 02-20-2018 MRI HIP [facility] [address] [place] [address] [phone] Pt Location: IMGCTR/ DEP REF Pt RM#: MR #: [id number] DATE: 02/20/18 1346 ADM#: [id number] #: [id number] GEOFF GONZALEZ MDOB: 1985 Age/Sex: 32 / [...] tendons.REPORT# [id number] READ BY: Naomy Tay M.D. [id number] REPORT RELEASED BY: Naomy Tay M.D. 02/21/182009Transcribed Date/Time: 02/20/18 180 JLECC: SALOME Fay Normal [facility] MRI PELVISon 02-20-[address] [phone] Pt Location: IMGCTR/ DEP REF Pt RM#: MR #: [id number] DATE: 02/20/18 1346 ADM#: [id number] #: [id number] GEOFF GONZALEZ MDOB: 1985 Age/Sex: 32 / [...] study.REPORT# [id number] READ BY: Naomy Tay M.D. [id number] REPORT RELEASED BY: Naomy Tay M.D. 02/21/182009Transcribed Date/Time: 02/20/18 175 JLECC: SALOME Fay Normal [facility] COMPREHENSIVE METABOLIC PANE Zach 01-22-2018 Albumin mass conc 4.8 g/dL High 3.0-4.5 [facility] Comment on above: Order Comment: REASO N FOR EXAM Z00.00 Performed By: #### C GEORGE, VASR ####MAIN LABCLIA:[id number] [place] [address] Albumin/Globulin mass ratio 1.7 {ratio} High 1-1.4 [facility] Comment on above: Order Comment: REASO N FOR EXAM Z00.00 Performed By: #### C GEORGE, VASR ####MAIN LABCLIA:[id number] [facility] [place] [address] ALP enzyme act/vol 53 U/L Normal 35-104 [facility] Comment on above: Order Comment: REASO N FOR EXAM Z00.00 Performed By: #### C MP, VASR ####MAIN LABCLIA:[id number] [place] [address] ALT enzyme act/vol 12 U/L Normal 0-33 [facility] Comment on above: Order Comment: REASO N FOR EXAM Z00.00 Performed By: #### C MP, VASR ####MAIN LABCLIA:[id number] [facility] [place] [address] Anion gap 3 molar conc 15 mmol/L Normal 9-18 [facility] Comment on above: Order Comment: REASO N FOR EXAM Z00.00 Performed By: #### C GEORGE, VASR ####MAIN LABCLIA:[id number] [facility] [place] [address] AST enzyme act/vol 16 U/L Normal 0-32 [facility] Comment on above: Order Comment: REASO N FOR EXAM Z00.00 Performed By: #### C GEORGE, VASR ####MAIN LABCLIA:[id number] [facility] [place] [address] Bilirubin mass conc 0.5 mg/dL Normal 0.2-1.2 [facility] Comment on above: Order Comment: REASO N FOR EXAM Z00.00 Performed By: #### C GEORGE, VASR ####MAIN LABCLIA:[id number] [facility] [place] [address] Calcium mass conc 9.6 mg/dL Normal 8.6-10.0 [facility] Comment on above: Order Comment: REASO N FOR EXAM Z00.00 Performed By: #### C GEORGE, VASR ####MAIN LABCLIA:[id number] [facility] [place] [address] Chloride molar conc 103 mmol/L Normal 98-107 [facility] Comment on above: Order Comment: REASO N FOR EXAM Z00.00 Performed By: #### C GEORGE, VASR ####MAIN LABCLIA:[id number] [facility] [place] [address] CO2 molar conc 26 mmol/L Normal 22-29 [facility] Comment on above: Order Comment: REASO N FOR EXAM Z00.00 Performed By: #### C GEORGE, VASR ####MAIN LABCLIA:[id number] [facility] [place] [address] Creatinine mass conc 0.72 mg/dL Normal 0.50-0.90 [facility] Comment on above: Order Comment: REASO N FOR EXAM Z00.00 Performed By: #### C GEORGE, VASR ####MAIN LABCLIA:[id number] [facility] [place] [address] GFR/1.73 sq M.predicted MDRD vol rate/area 99 /1.73 m2 Normal >60 mL/min [facility] Comment on above: Order Comment: REASO N FOR EXAM Z00.00 Result Comment: Norm al RangeStage Description:1 Normal or Increased GFR >=902 Mild Decrease in GFR 60-903 Moderately Decreased GFR 30-594 Severely Decreased GFR 15-295 Kidney Failure <15 Performed By: #### C GEORGE, VASR ####MAIN LABCLIA:[id number] [facility] [place] [address] Globulin Calculated mass conc (S) 2.8 g/dL Normal 2.3-3.5 [facility] Comment on above: Order Comment: REASO N FOR EXAM Z00.00 Performed By: #### C GEORGE, VASR ####MAIN LABCLIA:[id number] [facility] [place] [address] Glucose mass conc 95 mg/dL Normal 74-109 [facility] Comment on above: Order Comment: REASO N FOR EXAM Z00.00 Performed By: #### C GEORGE, VASR ####MAIN LABCLIA:[id number] [facility] [place] [address] Potassium molar conc 4.3 mmol/L Normal 3.5-5.1 [facility] Comment on above: Order Comment: REASO N FOR EXAM Z00.00 Performed By: #### C GEORGE, VASR ####MAIN LABCLIA:[id number] [facility] [place] [address] Protein mass conc 7.6 g/dL Normal 6.4-8.3 [facility] Comment on above: Order Comment: REASO N FOR EXAM Z00.00 Performed By: #### C GEORGE, VASR ####MAIN LABCLIA:[id number] [facility] [place] [address] Sodium molar conc 140 mmol/L Normal 136-145 [facility] Comment on above: Order Comment: REASO N FOR EXAM Z00.00 Performed By: #### C GEORGE, VASR ####MAIN LABCLIA:[id number] [place] [address] Urea nitrogen mass conc (Bld) 9 mg/dL Normal 6-20 [facility] Comment on above: Order Comment: REASO N FOR EXAM Z00.00 Performed By: #### C GEORGE, VASR ####MAIN LABCLIA:[id number] [place] [address] Urea nitrogen/Creatinine mass ratio 12.5 mg/mg Normal [facility] Comment on above: Order Comment: REASO N FOR EXAM Z00.00 Performed By: #### C GEORGE, VASR ####MAIN LABCLIA:[id number] [place] [address] FREE T4 (FREE THYROXINE)on 1 T4 free mass conc 1.74 ng/dL High 0.93-1.7 [facility] Comment on above: Order Comment: REASO N FOR EXAM Z00.00 Performed By: #### T 4F, TSH ####MAIN LABCLIA:[id number] [place] [address] THYROID STIMULATING HORMONEo n 01-22-2018 Thyrotropin Qn 0.86 uIU/mL Normal 0.27-4.20 [facility] Comment on above: Order Comment: REASO N FOR EXAM Z00.00 Performed By: #### T 4F, TSH ####MAIN LABCLIA:[id number] [facility] [place] [address] VASCULAR RISK PANELon 2017 Cholesterol in HDL mass conc 52 mg/dL Low >65 [facility] Comment on above: Order Comment: REASO N FOR EXAM Z00.00 Performed By: #### C GEORGE, VASR ####MAIN LABCLIA:[id number] [place] [address] Cholesterol in LDL mass conc 96 mg/dL Normal <129 [facility] Comment on above: Order Comment: REASO N FOR EXAM Z00.00 Performed By: #### C GEORGE, VASR ####MAIN LABCLIA:[id number] [place] [address] Cholesterol mass conc 160 mg/dL Normal 0-199 [facility] Comment on above: Order Comment: REASO N FOR EXAM Z00.00 Performed By: #### C GEORGE, VASR ####MAIN LABCLIA:[id number] [place] [address] Triglyceride mass conc 58 mg/dL Normal 0-199 [facility] Comment on above: Order Comment: REASO N FOR EXAM Z00.00 Performed By: #### C GEORGE, VASR ####MAIN LABCLIA:[id number] [place] [address] VLDL CHOLESTEROL 12 mg/dL Normal 5-40 [facility] Comment on above: Order Comment: REASO N FOR EXAM Z00.00 Performed By: #### C GEORGE, VASR ####MAIN LABCLIA:[id number] [place] [address] HIP UNI 2-3 VIEWS ROUTINEon 07-30-2017 HIP UNI 2-[address] [phone] Pt Location: [facility] REF Pt RM#: MR #: [id number] DATE: 07/30/17816 ADM#: [id number] #: [id number] GEOFF GONZALEZ MDOB: 1985 Age/Sex: 32 / [...] Date/Time: 07/30/17 1535 JLECC: SALOME Fay Normal [facility] FREE T4 (FREE THYROXINE)on 0 07-22-2017 T4 free mass conc 1.31 ng/dL Normal 0.93-1.7 [facility] Comment on above: Order Comment: REASO N FOR EXAM E03.9 Performed By: #### T 4F, TSH ####MAIN LABCLIA:[id number] [place] [address] THYROID STIMULATING HORMONEo n 07-22-2017 Thyrotropin Qn 1.21 uIU/mL Normal 0.27-4.20 [facility] Comment on above: Order Comment: REASO N FOR EXAM E03.9 Performed By: #### T 4F, TSH ####MAIN LABCLIA:[id number] [place] [address] URINE CULTUREon 07-08-2017 Bacteria identified Cx Nom (U) ------- URINE CULTURE: No growth after 2 days Normal [facility] Comment on above: Order Comment: ANEL Bangura FOR EXAM R30.0 Performed By: #### U HARESH ####MAIN LABCLIA:[id number] [place] [address] HPV High Riskon 03-07-2017 HPV High Risk Negative Normal Negative [facility] Comment on above: Result Comment: for types 16,18,31,33,35,39,45,51,52,56,58,59,66 and 68.Methodology: Nucleic Acid Amplification Test (NAAT) Performed By: #### L 800.5150 ####Main Laboratory ([facility])[address] [place], [place] [phone] Nivar, MD Gynecologic (PAP) Specimenon 02-27-2017 Gynecologic (PAP) Specimen Normal [facility] Comment on above: Result Comment: Name : GEOFF GONZALEZ Age: 31 /Sex: 1985/F MR#: [id number] Reg Date: 02/27/[address]: Denae RECINOS,Shireen#: [id number] Status: NAIDA DELACRUZI [facility] RM: -Copies to:Mirtha Philippe MD; None Specimen: [id number] Received: [id number] Status: YOSELIN Vanegas Num: [id number] Collected: [id number] Type: [employer] Subm Doc: Mirtha Philippe MD CYTOLOGY REPORT Source: Cervical and Endocervical, Thin [...] Amplification Test (NAAT)Signed (signature on file) INEZ Hernandez(ASC)[facility] 03/05/17 1115 (signature on file) INEZ Hernandez(ASCP)[facility] 03/07/17 1425 Performed By: #### P [employer] ####Main Laboratory ([facility])[address] [place], [place] [address], [place] [phone] Nivar, MD Vital Signs Date Time Vital Sign Value Performing Clinician Norbert finley 05-01-2024 08:03-0500 Body height 160.02 cm PHYSICIAN NO [facility] 05-01-2024 08:03-0500 Body weight 72.57 kg PHYSICIAN NO [facility] 11-08-2023 10:15-0400 Blood Pressure Location Oscar SURESHPool [facility] [place] 11-08-2023 10:15-0400 Diastolic blood pressure 72 mm[Hg] Oscar NILL [facility] [place] 11-08-2023 10:15-0400 Heart rate 72 /min Oscar NILL [facility] [place] 11-08-2023 10:15-0400 Respiratory rate 16 /min Oscar NILL [facility] [place] 11-08-2023 10:15-0400 Systolic blood pressure 113 mm[Hg] Oscar NILL [facility] 10-16-2023 15:08-0400 Body height 165.1 cm PA-C Leia Bowden Work Phone: [facility] 10-16-2023 15:08-0400 Body weight 72.57 kg PA-C Leia Bowden Work Phone: [facility] Encounters Encounter Date Encounter Type Care Provider Facility Start: 05-01-2024 End: 05-01-2024 Patient encounter procedure PHYSICIAN NO [facility] [place] Work Phone: Start: 05-01-2024 End: 05-01-2024 ambulatory PHYSICIAN NO [facility] Work Phone: Start: 12-02-2023 End: 12-02-2023 ambulatory [facility] Start: 11-08-2023 End: 11-08-2023 ambulatory Oscar R NILL Facility:[facility] Start: 11-08-2023 End: 11-08-2023 Patient encounter procedure Oscar R NILL [facility] [place] Start: 11-05-2023 ambulatory Oscar R NILL Facility : [facility] Start: 10-29-2023 End: 10-29-2023 ambulatory Oscar R NILL Facility:[facility] Start: 10-29-2023 End: 10-29-2023 Patient encounter procedure Oscar LONDON [facility] Start: 10-18-2023 ambulatory Oscar LONDON Facility:[facility] Start: 10-18-2023 ambulatory Oscar LONDON Facility:[facility] Start: 10-16-2023 End: 10-16-2023 Patient encounter procedure PA-C Leia Bowden Work Phone: [facility] [place] Work Phone: Start: 10-16-2023 End: 10-16-2023 ambulatory NON STAFF [facility] Work Phone: Start: 09-04-2023 End: 09-04-2023 ambulatory LEIA BOWDEN Not Available Start: 08-28-2022 End: 08-29-2022 ambulatory LEIA BOWDEN . Facility: Start: 08-21-2022 End: 08-21-2022 ambulatory LEIA DENNISE . Facility:[facility] Start: 08-16-2022 End: 08-17-2022 ambulatory VALENTINE KERN Facility:[facility] Start: 03-02-2022 End: 03-02-2022 ambulatory JONATAN BANDA Facility:[facility] Start: 02-26-2018 End: 02-26-2018 Patient encounter procedure [facility] Facility:[facility] Start: 02-20-2018 End: 02-20-2018 Patient encounter procedure [facility] Facility:[facility] Start: 01-22-2018 Encounter for genera l adult medical examination without abnormal findings Ramonita Maday [facility] Start: 01-22-2018 End: 01-22-2018 Patient encounter procedure [facility] Facility:[facility] Start: 08-26-2017 End: 08-26-2017 Patient encounter procedure [facility] Facility:[facility] Start: 07-30-2017 End: 07-30-2017 Patient encounter procedure [facility] Facility:[facility] Start: 07-22-2017 End: 07-22-2017 Patient encounter procedure [facility] Facility:[facility] Start: 07-08-2017 End: 07-08-2017 Patient encounter procedure [facility] Facility:[facility] Start: 02-27-2017 End: 02-27-2017 Ambulatory Alicjaюлия Philippe Facility:[facility] Procedures Date Procedure Procedure Detail Performing Clinician Start: 05-01-2024 MRI of bilateral paul asts with contrast PHYSICIAN NO FAMILY Thyroidectomy Oscar LONDON Plan of Treatment Date Care Activity Detail Author Start: 10-16-2023 MR Breast - bilateral F [facility] Start: 10-16-2023 MRI of bilateral paul asts with contrast MR breast BI wo/w con CAD [facility] Payers Date Payer Category Payer Unknown [id number] 2017 Unknown [id number] 2016 Unknown [id number] 1985 Unknown [id number] 2.16.84 0.1.203913.3.579.2.593 1985 Unknown [id number] 2.16.84 0.1.886559.3.579.2.593 1983 Unknown [id number] 2.16.84 0.1.900688.3.579.2.593 1983 Unknown [id number] 2.16.84 0.1.700005.3.579.2.1259 1983 Unknown [id number] 2.16.8 40.1.488489.3.579.2.1286 1983 Unknown [id number] 2.16.8 40.1.000278.3.579.2.1286 1983 Unknown [id number] 2.16.8 40.1.060270.3.579.2.1286 1983 Unknown [id number] 2.16.8 40.1.134122.3.579.2.727 1983 Unknown [id number] 2.16.8 40.1.204962.3.579.2.727 1983 Unknown [id number] 2.16.8 40.1.573574.3.579.2.727 1983 Unknown [id number] 2.16.8 40.1.332618.3.579.2.727 1959 Self-pay Unknown [id number] 2.16.84 0.1.779419.3.579.2.543 Unknown [id number] 2.16.84 0.1.893905.3.579.2.543 Unknown [id number] 2.16.84 0.1.699538.3.579.2.543 Unknown [id number] 2.16.84 0.1.556561.3.579.2.543 Unknown [id number] 2.16.84 0.1.316923.3.579.2.543 Unknown [id number] 2.16.84 0.1.799676.3.579.2.543 Unknown [id number] 2.16.84 0.1.243611.3.579.2.543 Unknown [id number] 2.16.84 0.1.036465.3.579.2.593 Unknown [id number] 2.16.8 40.1.754360.3.579.2.531 Unknown [id number] 2.16.8 40.1.448596.3.579.2.531 Social History Date Type Detail Facility [facility] if [facility] Work Phone: Start: 1985 Sex Assigned At Female F [facility] Tobacco smoking status No Smokin g Status Entered [facility] Sex Assigned At Female [facility] Start: 11-08-2023 Tobacco smoking status Never s moked tobacco (finding) [facility] Tobacco smoking status Never [facility] Tobacco [facility] if ever smoked [facility] Work Phone: Start: 05-02-2024 Sex Female (finding) [facility] Functional Status Date Assessment Result Facility 11-08-2023 Functional Status N/A [facility] Clinical Note 11-08-2023 Note Date & Type Note Facility 11-08-2023 Note General Surgery Offi ce/Clinic Note Chief Complaint consultation for abnormal breast MRI HPI Staff 38 year old female presents to discuss abnormal right breast MRI. Reports palpable lump for which she believes represents a lipoma. Reports cyclic breast pain at time of menstrual cycle. Denies skin changes. Denies nipple inversion. Reports chronic intermittent brown nipple discharge. Paternal great-grandmother with history of breast cancer. History of Present Illness 38 yo female with h/o hypothyroidism, here to discuss abnormal MRI; patient noted small lump in right breast several months ago, superficial, soft, mobile, no skin changes or injury; some cyclic breast pain at time of menses, not related to lump; no nipple changes, has had intermittent brown drainage from nipple since beast feeding, no recent change; patient had recent mammogram and US at [facility], small lump in question not visualized; patient with dense breast tissue; bilateral breast MRI completed at [facility], small 6 mm nodule noted in posterior breast at 6 o'clock position; type 1 kinetics, recommended targeted US with bx if area visualized, or MRI-guided bx if not seen on US, read as category 4b; had US at [facility], radiologist unable to locate any abnormal areas; felt MRI, given type 1 kinetics, was not concerning; over read of MRI by [facility] radiologist with breast fellowship was consistent with category 4b, and MRI-guided bx was recommended; even with type 1 kinetics, there is an approximately 9 % risk of the lesion being malignant. no fmhx of breast or ovarian cancers, other than great grandmother; patient grew up in [place] where environmental exposures have had increased cancer risks. no tobacco use; no hormone therapy. Review of Systems PHQ Score Initial Depression Screen Score: 0 SCORE ROS - Provider Constitutional: no fever, no sweats, no weight loss. Eyes: no glasses, no blurred vision, no visual loss. ENMT: no dentures, no hoarseness, no swallowing difficulties, no hearing loss, no ear infection(s), no nose bleeds. Cardiovascular: normal blood pressure, no chest pain, regular heartbeat, no heart murmur. Respiratory: no shortness of breath, no cough, no asthma, no wheezing. Gastrointestinal: no nausea, no vomiting, no diarrhea, no constipation, no blood in stool, no change in bowel habits, no abdominal pain, no hepatitis. Genitourinary: no kidney stones, no urine infection, no dysuria. Musculoskeletal: no pain, no weakness. Skin: no changing moles, no rash, no skin lumps. Neurologic: no seizures, no epilepsy, no headache. Psychiatric: no emotional or psychiatric problem. Heme/Lymph: no bleeding problems, no anemia, no blood clots, no transfusions. Allergy/Immunologic: no swollen lymph nodes/glands, no IV drug abuse. Other: Additional ROS info: Except as noted in the above Review of Systems and in the History of Present Illness, all other systems have been reviewed and are negative or noncontributory. Physical Exam Vitals & Measurements HR: 72(Peripheral) RR: 16 BP: 113/72 HT: 63 in HT: 160 cm WT: 74.8 kg WT: 164.56 lb BMI: 29.22 Assessment/Plan 1. Abnormal MRI, breast (R92.8: Other abnormal and inconclusive findings on diagnostic imaging of breast) had extensive discussion with patient regarding MRI findings; category 4b, approximately 9 % risk of malignant lesion; she has had time to think this through, and would like to proceed with MRI-guided biopsy for definitive tissue diagnosis; she understands the risks of possible bleeding, and half-way scarring; she will follow up 1 week after biopsy to discuss pathology report; call sooner if problems/questions. Ordered: MRI Guided Needle Placement Follow-up No qualifying data available Problem List/Past Medical History Ongoing Abnormal MRI, breast BMI 29.0-29.9,adult Hypothyroidism Mass of lower outer quadrant of right breast Overweight Historical No qualifying data Procedure/Surgical History Thyroidectomy. Medications levothyroxine 100 mcg (0.1 mg) Tab, 100 mcg= 1 tab(s), Oral, Daily spironolactone 50 mg Tab, 50 mg= 1 tab(s), Oral, Daily Allergies Cefzil (Rash) Social History Alcohol - Denies Alcohol Use, 11/08/2023 Substance Abuse - Denies Substance Abuse, 11/08/2023 Tobacco Never (less than 100 in lifetime) Tobacco Use:. Never Smokeless Tobacco Use:., 11/08/2023 Family History Abdominal aortic aneurysm: Father. Hypertension: Mother. [facility] Comment on above: Result Comment: Elec tronically Signed By: ZAK RECINOS, Oscar Morrow\Date and Time Signed: 11/08/23 14:01 EDT Evaluation + Plan note 10-18-2023 Radiology Note Date & Type Note Facility 10-18-2023 Evaluation + Plan note Future Scheduled TestsMA Mamm Diag w/CAD if perf and 3D Lm 10/18/23 [facility] Evaluation + Plan note Radiology Note Date & Type Note Facility Evaluation + Plan note Future Appointments Appointment Date:11/08/2023 10:20:00 AM Scheduled Provider:Oscar LONDON MD Location:[facility] Appointment Type:[place] [id number] Future Scheduled TestsMA Mamm Diag w/CAD if perf and 3D Lm 10/18/23 [facility] Evaluation note Note Date & Type Note Facility Evaluation note [facility] Hospital [facility] Narrative Note Date & Type Note Facility Hospital course Narrative No data available for this section [facility] Hospital Discharge instructions Note Date & Type Note Facility Hospital Discharge instructions No data available for this section [facility] Progress note Note Date & Type Note Facility Progress note No data available for this section [facility] Summary Purpose Family History No Family History Records FoundNo Family History Records FoundNo Family History Records FoundNo Family History Records Found No data available for this section No data available for this section No Family History Records FoundNo Family History Records FoundNo Family History Records Found Advance Directives No Advanced Directives Records Found Advance Directive Response Recorded Date/ Time Advance Directives No September 19 1:23pm Advance Directive Response Recorded Date/ Time Advance Directives No September 19 12:23pm Chief Complaint and Reason for Visit Chief Complaint n63.10 Chief Complaint Admit Date n63.13 r92.8 May 01, 2024 9 :03am Additional Source Comments INFORMATION SOURCE (unrecogn ized section and content) DATE CREATED AUTHOR 10/15/2017 [facility] DATE CREATED AUTHOR AUTHOR'S ORGANIZ ATION 03/30/2018 Daisy Fani marion DATE CREATED AUTHOR AUTHOR'S ORGANIZ ATION 08/30/2022 [facility] DATE CREATED AUTHOR AUTHOR'S ORGANIZ ATION 09/06/2023 [facility] DATE CREATED AUTHOR AUTHOR'S ORGANIZ ATION 12/10/2023 [facility] DATE CREATED AUTHOR AUTHOR'S ORGANIZ ATION 04/01/2024 [facility] DATE CREATED AUTHOR AUTHOR'S ORGANIZ ATION 05/06/2024 [facility] Care Teams (unrecognized sec tion and content) Team Status: Active Member Role Status Dates NON STAFF Primary Care Provider Active Team Status: Inactive Member Role Status Dates Leia Bowden PA-C Attending Provider Active Sta rt: October 16, 2023 End: October 16, 2023 NON STAFF Primary Care Provider Active Start: October 16, 2023 End: October 16, 2023 Team Status: Active Member Role Status Dates PHYSICIAN NO FAMILY Primary Care Provider Active Team Status: Inactive Member Role Status Dates Oscar London MD FACS Attending Provider Active Start: May 01, 2024 End: May 01, 2024 PHYSICIAN NO FAMILY Primary Care Provider Active Start: May 01, 2024 End: May 01, 2024 Goals (unrecognized section and content) Goals may be documented in a n alternate section No data available for this section No data available for this sectionGoals may be documented in an alternate section FOR RECORDS PERTAINING TO PATIENTS WHO ARE [...] BE BASED ON THE PRIMARY CLINICAL RECORDS. [employer] provides no warranty or guarantee of the accuracy or completeness of information in this document.
[2024-05-26 15:48] LABS: Basophils Absolute Auto 0.1 10^3/uL (0.0-0.1); Basophils Percent Auto 0.5 % (0.2-2.0); Eosinophils Percent Auto 0.4 % (0.9-7.0); Hematocrit 38.9 % (36.0-48.0); Immature Granulocytes Abs Auto 0.03 10^3/uL (0.00-0.03); Immature Granulocytes Pct Auto 0.3 % (0.0-0.5); Lymphocytes Absolute Auto 2.5 10^3/uL (1.2-3.8); Lymphocytes Percent Auto 22.6 % (20.5-60.0); Mean Corpuscular HGB Conc 33.4 g/dL (29.9-35.2); Mean Corpuscular Volume 86.6 fL (81.0-99.0); Mean Platelet Volume 9.7 fL (9.5-13.5); Monocytes Absolute Auto 0.8 10^3/uL (0.3-0.8); Monocytes Percent Auto 6.8 % (1.7-12.0); Neutrophils Absolute Auto 7.7 10^3/uL (1.4-6.5); Neutrophils Percent Auto 69.4 % (43.0-75.0); Platelet Count 255 10^3/uL (150-450); Red Blood Count 4.49 10^6/uL (4.20-5.40); Red Cell Distribution Width 12.5 % (11.0-15.0)
[2024-05-26 16:04] LABS: Estimated Average Glucose 105 mg/dL; Glycohemoglobin A1C 5.3 % (4.5-6.2)
[2024-05-26 16:18] LABS: Free T4 1.11 ng/dL (0.76-1.46)
[2024-05-26 16:23] LABS: Thyroid Stimulating Hormone 1.199 uIU/mL (0.358-3.740)
[2024-05-26 16:25] LABS: HCG Quantitative <1 mIU/mL
[2024-05-27 04:07] LABS: FSH 3.4 mIU/mL (.); Luteinizing Hormone(LH) 3.7 mIU/mL (.)
[2024-06-02 00:09] LABS: DHEA, Serum 145 ng/dL (31-701)
== END 2024-05-26 14:58 | disposition home or self-care (01) ==
LOC: US 14:57
PROVIDERS: Visit Provider Obstetrics & Gynecology
DX: E28.2 Polycystic ovarian syndrome (principal); N93.9 Abnormal uterine and vaginal bleeding, unspecified
CPT/HCPCS: 36415; 76830; 76856; 82626; 82627; 83001; 83002; 83036; 84439; 84443; 84702; 85025

== ENCOUNTER 2024-07-07 13:32 | Outpatient (OUT) | payer BC, SELFPAY ==
--- NOTE | 2024-07-07 13:51 | ECG_ITS ---
[facility] Test Date: 2024-07-07 Pat Name: GEOFF GONZALEZ Department: Room: - Gender: Female Director Life: : 1985 Requested By: GWYN MARIN Order Number: [id number] Reading MD: MAZIN CAMPOS Measurements Intervals [place] Rate: 71 P: 5 VT: 120 QRS: 7 QRSD: 105 T: 8 QT: 380 QTc: 416 Interpretive Statements SINUS RHYTHM No previous ECG available for comparison Electronically Signed On 07-07-2024 14:58:22 EDT by MAZIN CAMPOS
== END 2024-07-07 13:33 | disposition home or self-care (01) ==
LOC: PST 13:32
PROVIDERS: Visit Provider Obstetrics & Gynecology
DX: Z01.810 Encounter for preprocedural cardiovascular examination (principal); N92.0 Excessive and frequent menstruation with regular cycle; N93.9 Abnormal uterine and vaginal bleeding, unspecified; R10.2 Pelvic and perineal pain
CPT/HCPCS: 93005

== ENCOUNTER 2024-07-17 07:09 | Day surgery (SDC) | payer BC, SELFPAY ==
[2024-07-07 14:05] VITALS: BP 128/83; PULSE 72; TEMP 36.4; O2SAT 100; BMI 28.7
--- OUTSIDE RECORDS SUMMARY | 2024-07-17 07:13 | XMS_ITS | CCD ---
Author Organization [facility] Care Team Providers Care Embedded Software Architect Name Role Phone Mirtha Philippe Unavailable Unavaila ble None Unavailable Unavailable Maday, [...] Unavailable Unavailable Maday, Ramonita Unavailable Unavailable DENNISE .LEIA Consulting Unavailable DENNISE ., LEIA Admitting Unavailable DENNISE . LEIA Attending Unavailable DENNISE ., LEIA Consulting Unavailable DENNISE ., LEIA Admitting Unavailable DENNISE ., LEIA Attending Unavailable SOLO, JONATAN Attending Unavailable SOLO, JONATAN Consulting Unavailable SOLO, JONATAN Admitting Unavailable SAMSA, VALENTINE Attending Unavailable SAMSA, VALENTINE Consulting Unavailable SAMSA, VALENTINE Admitting Unavailable TIERNEY Bowden Attending Provider NON STAFF Primary Care Provider Unavailabl e NONE, XXXX Primary Care Physician Unavailab Rakesh Varela Primary Care Physician REF PROV, NOT IN SYSTEM Referring Unavaila ble CAS BASHIR Referring Unavailable NILLOscar Attending Unavailable NILOscar Lanza Attending Unavailable NILOscar Lanza Referring Unavailable NILLOscar Admitting Unavailable NILLOscar Attending Unavailable Nill , Oscar R Attending Provider [phone] NO FAMILY, PHYSICIAN Primary Care Provider Unava ilable Leia Bowden Attending Unavailable NON STAFF Primary Care Unavailable Leia Bowden Admitting Unavailable NO FAMILY, PHYSICIAN Primary Care Unavailable Oscar London Admitting Unavailable Oscar London Attending Unavailable Unavailable Primary Care Provider Unavailabl e Unavailable Primary Care Provider Unavailabl e RAKESH OHARA Attending Unavailable RAKESH OHARA Attending Unavailable LEIA BOWDEN Attending Unavailable LEIA BOWDEN Attending Unavailable Allergies Allergy Classification Reported Allergen(s) Allergy Type Date of Onset Reaction(s) Facility (2 sources) cefprozil; Translations: [CEFPROZIL] Drug Allergy 8 [facility] Repository (3 sources) cefprozil; Translations: [cefprozil] Drug Allergy 4 Eruption of skin (disorder), Swelling, Rash [facility] [place] (1 source) Unable to Assess Drug allergy (disorder) 4 [facility] Repository (6 sources) Aquamed Propensity to adverse reactions 4 [facility] (1 source) Cefprozil Propensity to adverse reactions 5 [facility] Medications Current Medications Medication Drug Class(es) Dates Sig (Normalized) Sig (Original) BuPROPion (Eqv-Wellbutrin SR) 150 mg/12 hours oral tablet, extended release (1 source) Start: 10-18-2023 BuPROPion (Eqv-Wellbutrin SR) 150 mg/12 hours oral tablet, extended release 150 mg = 1 tab(s), Oral, Daily, Refills(s) 0 Start Date: 10/18/23 Status: Ordered levothyroxine sodium 0.1 mg oral tablet (9 sources) l-Thyroxine Start: 10-18-2023 take 1 tablet by mouth once daily levothyroxine 100 mcg (0.1 mg) Tab 100 mcg = 1 tab(s), Oral, Daily, Refills(s) 0 Start Date: 10/18/23 Status: Ordered Start: 09-09-2023 take 1 tablet by lianna th once daily in the morning levothyroxine (Synthroid, Levoxyl) 100 MCG tablet Indications: Hypothyroidism, unspecified type (CMS/HCC) TAKE 1 TABLET BY MOUTH EVERY DAY IN THE MORNING ON EMPTY STOMACH 90 tablet 3 09/09/2023 Active phentermine hydrochloride 37.5 mg oral tablet (4 sources) Sympathomimetic Amine Anorectic Start: 06-08-2024 End: 07-08-2024 take 1 tablet by mouth before mealtime phentermine (Adipex-P) 37.5 MG tablet Indications: Encounter for weight management Take 1 tablet (37.5 mg) by mouth in the morning. Take before meals. 30 tablet 06/08/2024 07/08/2024 Active spironolactone 50 mg oral tablet (9 sources) Aldosterone Antagonist Start: 09-04-2023 take 1 tablet by mouth once daily spironolactone (Aldactone) 50 MG tablet Indications: Hypertension, unspecified type (CMS/HCC) TAKE 1 TABLET BY MOUTH EVERY DAY FOR 90 DAYS 90 tablet 4 09/04/2023 Active Completed/Discontinued Medications Medication Drug Class(es) Dates Sig (Normalized) Sig (Original) 12 hr buPROPion hydrochloride 150 mg extended release oral tablet (5 sources) Aminoketone Start: 09-04-2023 End: 06-08-2024 buPROPion SR (Wellbutrin SR) 150 MG 12 hr tablet Indications: Major depressive disorder with current active episode, unspecified depression episode severity, unspecified whether recurrent (CMS/HCC) Take 1 tablet (150 mg) by mouth in the morning and 1 tablet (150 mg) before bedtime. Take 1 tablet daily for 3 days, then take 1 tablet daily for 4 days. Quit smoking on day 7 and continue to take medication twice daily.. 180 tablet 4 09/04/2023 06/08/2024 Discontinued linaclotide 0.072 mg oral capsule (4 sources) Guanylate Cyclase-C Agonist End: 06-02-2024 linaCLOtide (Linzess) 72 MCG capsule 1 (one) time each day at the same time 06/02/2024 Discontinued permethrin 50 mg/ml topical cream (4 sources) Pyrethroid Start: 12-27-2022 End: 06-02-2024 permethrin (Elimite) 5 % cream APPLY TO AFFECTED AREA TO NECK AND TOE 8-14 HOURS THEN SHOWER 12/27/2022 06/02/2024 Discontinued Problems Active Problems Problem Classification Problem Date Documented Date Episodic/Chronic Abdominal pain (1 source) Pain in female pelvis; Translations: [Pelvic and perineal pain] 06-24-2024 Episodic Administrative/social admission (2 sources) Patient encounter status; Translations: [Persons encountering health services in other specified circumstances] 06-08-2024 Episodic Fever of unknown origin (1 source) Fever, unspecified; Translations: [FEVER, UNSPECIFIED] Onset: 02-26-2018 Episodic Immunizations and screening for infectious disease (1 source) Encounter for screening for human papillomavirus (HPV); Translations: [ENC SCREENING HUMAN PAPILLOMAVIRUS] Onset: 08-24-2022 Episodic Menstrual disorders (3 sources) Menorrhagia; Translations: [Excessive and frequent menstruation with regular cycle] 06-08-2024 Chronic Other female genital disorders (1 source) Abnormal uterine bleeding; Translations: [Abnormal uterine and vaginal bleeding, unspecified] 06-24-2024 Chronic Other non-traumatic joint disorders (1 source) Other [...] Test Name Value Interpretation Reference Range Facility ALL CBC WITH AUTO DIFFon BASOPHILS ABSOLUTE AUTO 0.1 [facility] Basophils/100 WBC (Bld) 0.5 % 0.2 - 2.0 % [facility] Eosinophils/100 WBC (Bld) 0.4 % Low 0.9 - 7.0 % [facility] Erythrocyte distribution width (RBC) [Ratio] 12.5 % 11.0 - 15.0 % [facility] Hematocrit (Bld) [Volume fraction] 38.9 % 36.0 - 48.0 % [facility] Hemoglobin (Bld) [Mass/Vol] 13 g/dL 12.0 - 16.0 g/dL [facility] IMMATURE GRANULOCYTES ABS AUTO 0.03 [facility] Immature granulocytes/100 WBC (Bld) 0.3 % 0.0 - 0.5 % [facility] Interpretation and review of laboratory results Abnormal [facility] LYMPHOCYTES ABSOLUTE AUTO 2.5 [facility] Lymphocytes/100 WBC (Bld) 22.6 % 20.5 - 60.0 % [facility] MCH (RBC) [Entitic mass] 29 pg 26.7 - 34.0 pg [facility] MCHC (RBC) [Mass/Vol] 33.4 g/dL 29.9 - 35.2 g/dL [facility] MCV (RBC) [Entitic vol] 86.6 fL 81.0 - 99.0 fL [facility] MONOCYTES ABSOLUTE AUTO 0.8 [facility] Monocytes/100 WBC (Bld) 6.8 % 1.7 - 12.0 % [facility] NEUTROPHILS ABSOLUTE AUTO 7.7 High [facility] Neutrophils/100 WBC (Bld) 69.4 % 43.0 - 75.0 % [facility] Platelet mean volume (Bld) [Entitic vol] 9.7 fL 9.5 - 13.5 fL [facility] EO # 0 [facility] PLT 255 [facility] TB RBC 4.49 [facility] TB WBC 11 [facility] US PELVIS W/ TRANSVAGINALon 05-26-2024 [place] [address] Ultrasound Report Signed Patient: ELISABETH GONZALEZ MR#: [id number] : 1985 Acct:[id number] Age/Sex: 38 / F ADM Date: 05/26/24 Loc: US Attending Dr: Rakesh Ohara D.O. Ordering Physician: Rakesh Ohara D.O. Date of Service: 05/26/24 Procedure(s): US pelvis w/ transvaginal Accession Number(s): [id number] cc: Rakesh Ohara D.O.; Physician,Non-Staff [place] [address] Patient Name: ELISABETH GONZALEZ MRN: TBH:[id number] date: 1985 Sex: F Assigned Patient Location: US Current Patient Location: US Accession/Order Number: [id number] Exam Date: 05/26/2024 15:00 Report Date: 05/26/2024 16:00 At the request of: RAKESH OHARA Procedure: US pelvis w/ transvaginal EXAMINATION: US pelvis w/ transvaginal HISTORY: Polycystic Ovarian Syndrome E28.2 ; heavy periods COMPARISON: No relevant comparison available. TECHNIQUE: Transabdominal and/or transvaginal sonographic examination was performed as indicated by examination type. FINDINGS: UTERUS: Normal size and appearance. Uterus size: 11.7 x 5.6 x 5.4 cm ENDOMETRIUM: Normal homogeneous appearance. Endometrial thickness: 9 mm RIGHT OVARY: Contains a 3.7 cm benign-appearing cyst. Duplex Doppler demonstrates normal waveform and flow; resistive index 0.5. Ovary size: 3.8 x 3.4 x 4.3 cm LEFT OVARY: Contains a 2.5 cm benign-appearing cyst. Duplex Doppler demonstrates normal waveform and flow; resistive index 0.5. Ovary size: 3.2 x 2.7 x 3.1 cm CUL-DE-SAC: Unremarkable. No significant free fluid. BLADDER: Unremarkable. OTHER: Prominent left periuterine vessels; pelvic vascular congestion? US/US pelvis w/ transvaginal IMPRESSION: 1. Prominent benign-appearing ovarian cysts bilaterally. No additional follow-up is recommended. 2. Unremarkable uterus and endometrium. No specific findings to account for patient's symptoms. Electronically authenticated by: JOAQUIN CHAMBERS Date: 05/26/2024 16:00 Dictated By: Joaquin Chambers M.D. Signed By: 05/26/24 1602 DD/ 1600 TD/TT: Corporate Quality Manager: [facility] Radiology, Radiologist, MD - 05/26/2024 [place] [address] Ultrasound Report Signed Patient: ELISABETH GONZALEZ MR#: [id number] : 1985 Acct:[id number] Age/Sex: 38 / F ADM Date: 05/26/24 Loc: US Attending Dr: Rakesh Ohara D.O. Ordering Physician: Rakesh Ohara D.O. Date of Service: 05/26/24 Procedure(s): US pelvis w/ transvaginal Accession Number(s): [id number] cc: Rakesh Ohara D.O.; Physician,Non-Staff [place] [id number] Patient Name: ELISABETH GONZALEZ MRN: [facility]:[id number] date: 1985 Sex: F Assigned Patient Location: US Current Patient Location: US Accession/Order Number: [id number] Exam Date: 05/26/2024 15:00 Report Date: 05/26/2024 16:00 At the request of: RAKESH OHARA Procedure: US pelvis w/ transvaginal EXAMINATION: US pelvis w/ transvaginal HISTORY: Polycystic Ovarian Syndrome E28.2 ; heavy periods COMPARISON: No relevant comparison available. TECHNIQUE: Transabdominal and/or transvaginal sonographic examination was performed as indicated by examination type. FINDINGS: UTERUS: Normal size and appearance. Uterus size: 11.7 x 5.6 x 5.4 cm ENDOMETRIUM: Normal homogeneous appearance. Endometrial thickness: 9 mm RIGHT OVARY: Contains a 3.7 cm benign-appearing cyst. Duplex Doppler demonstrates normal waveform and flow; resistive index 0.5. Ovary size: 3.8 x 3.4 x 4.3 cm LEFT OVARY: Contains a 2.5 cm benign-appearing cyst. Duplex Doppler demonstrates normal waveform and flow; resistive index 0.5. Ovary size: 3.2 x 2.7 x 3.1 cm CUL-DE-SAC: Unremarkable. No significant free fluid. BLADDER: Unremarkable. OTHER: Prominent left periuterine vessels; pelvic vascular congestion? US/US pelvis w/ transvaginal IMPRESSION: 1. Prominent benign-appearing ovarian cysts bilaterally. No additional follow-up is recommended. 2. Unremarkable uterus and endometrium. No specific findings to account for patient's symptoms. Electronically authenticated by: JOAQUIN CHAMBERS Date: 05/26/2024 16:00 Dictated By: Joaquin Chambers M.D. Signed By: 05/26/24 1602 DD/ 1600 TD/TT: Corporate Quality Manager: [facility] Radiology Study observation (narrative) [facility] US PELVIS W/ TRANSVAGINALOrd ered By: Radiologist Radiology on 05-26-2024 [facility] Work Phone: MR breast BI wo/w con CADon 05-01-2024 MR breast BI wo/w con CAD [facility] [place] [address] MRI Report Signed Patient: Elisabeth Gonzalez MR#: [id number] : 1985 Acct:[id number] Age/Sex: 38 / F ADM Date: 05/01/24 Loc: Room: Type: [facility] Attending Dr: Oscar London MD FACS Copies [...] All imaged data was reviewed using the Medio system. The postcontrast images were subtracted and [...] BIO Impression dictated by: Tc Snider Jr., D.O.05/01/2024 3:17 PM Dictation Location: [place] [address] Transcribed By: [facility] 05/01/24 1517 Dictated By: Tc Snider Jr DO 05/01/24 1507 Signed By: 05/01/24 1517 Normal [facility] Magnetic resonance imaging r eportOrdered By: Tc Snider on 05-01-2024 Study report [facility] [place] [address] MRI Report Signed Patient: Elisabeth Gonzalez MR#: [id number] : 1985 Acct:[id number] Age/Sex: 38 / F ADM Date: 5 Loc: MR Room: Type: [facility] Attending Dr: Oscar London MD FACS Copies [...] contrast. All imaged data was reviewed using theMedio system. The postcontrast images were subtracted and [...] Snider Jr., D.OAdan05/01/2024 3:17 PM Dictation Location: [facility]- Transcribed By: [facility] 05/01/24 1517 Dictated By: Tc Snider Jr, DO 05/01/24 1507 Signed By: 05/01/24 1517 [facility] Reminderson 03-30-2024 Reminders Reminders From: Randi Marion LPN To: GSN - Clinical; Sent: 12/09/2023 16:03:34 EDT Show up: 03/30/2024 07:00:00 EST Subject: MRI breast recall Due Date/Time: 04/16/2024 07:00:00 EST Reminder/Recall Patient due for right breast MRI 04/16/24 to monitor area post biopsy of fibroadipose tissue. (have completed at [facility]) Order faxed to [facility]. Prior auth completed and approved. Scheduling on hold until April schedule is available. Patient notified. Normal [facility] MAMM POST BX DIAG UNI [...] MD on 12/09/2023 10:25 AM 1999 Normal [facility] US BX BREAST US GUID INITIAL RTon [...] MD on 12/09/2023 10:25 AM 1999 Normal [facility] Surgical Pathologyon 024 Surgical Pathology Normal [facility] Comment on above: Result Comment: [facility] [address] [place] [address] Surgical Pathology Consultation Patient Name:KEEGAN GONZALEZ:1985 (Age: 38)Gender:FTaken:4Reported:12/06/2023hysician(s):Jewels Martinez To:CAS Camachoession #:[id number]. Rec. #:[id number]: #[id number] Final Pathologic Diagnosis Right breast, 6 o'clock, [...] Out nsk/12/06/2023Giovanna Hays MD [place] [address], License number: [id number]. Clinical History Biopsy procedure: Ultrasound; Target: Mass; [...] minutes Time in formalin before processin hours (3,ns,[id number], m6) MW mxw/12/02/2023GP Specimen(s) Received Right breast Fee Codes(s): 1; 29361 US BREAST RT LIMITEDon 12-01 US BREAST RT LIMITED US BREAST RT LIMITE D EXAM: US BREAST RT LIMITED, 12/02/2023 8:13 [...] on 12/02/2023 9:48 AM 4A BIOPSY Normal [facility] Ambulatory Visit Summaryon 0 11-08-2023 Ambulatory Visit Summary Ambulatory Visit Summary ELISABETH GONZALEZ :1985 Visit Date:11/08/2023 Ambulatory Visit Instructions Your Care Team Attending Physician - Oscar LONDON MD Primary Care Physician - Rakesh OHARA DO This Is Your Medications List Contact [...] for choosing us for your care. Normal [facility] US Breast Unilateral Rt Naz [...] 2-Benign finding Recommendation: Normal interval follow-up Normal [facility] MR breast BI wo/w con CADon 10-16-2023 MR breast BI wo/w con [facility] [place] [address] MRI Report Signed Patient: Elisabeth Gonzalez MR#: [id number] : 1985 Acct:[id number] Age/Sex: 38 / F ADM Date: 10/16/23 Loc: MR Room: Type: [facility] Attending Dr: Leia Bowden PA-C Copies to: [...] All imaged data was reviewed using the Medio system. The postcontrast images were subtracted and [...] Snider Jr., D.OAdan10/17/2023 11:30 AM Dictation Location: [place] [address] Transcribed By: MICHELE 10/17/23 1130 Dictated By: Tc Snider Jr, DO 10/16/23 1638 Signed By: 10/17/23 1130 Normal [facility] PAP ACOG PANEL 2: 30 to 65on 08-29-2022 . . Normal [facility] Comment on above: Result Comment: Perf ormed at: WB Performed By: #### [id number] #### [facility] [address] [place] [address] [address] Harshal Valenzuela Age Gdln ACOG Testing 30-65 Normal [facility] Comment on above: Performed By: #### 4 [id number] #### [facility] [address] [place] [address] [address] Harshal Valenzuela DIAGNOSIS: Comment Normal [facility] Comment on above: Result Comment: NEGA TIVE FOR INTRAEPITHELIAL LESION OR MALIGNANCY. Performed at: WB Performed By: #### 4 [id number] #### [facility] [address] [place] [address] [address] Harshal Valenzuela HPV Aptima Negative Normal Negative [facility] Comment on above: Result Comment: This nucleic acid amplification test detects fourteen high-risk HPV types (16,18,31,33,35,39,45,51,52,56,58,59,66,68) without differentiation. Performed at: =G Performed By: #### 4 [id number] #### [facility] [address] [place] [address] [address] Harshal Valenzuela HPV Genotype Reflex Comment Normal [facility] Comment on above: Result Comment: Crit eria not met, HPV Genotype not performed. Performed at: WB Performed By: #### 4 [id number] #### [facility] [address] [place] [address] [address] Harshal Valenzuela Methodology: Comment Normal [facility] Comment on above: Result Comment: This liquid based ThinPrep(R) pap test was screened with the use of an image guided system. Performed at: WB Performed By: #### 4 [id number] #### [facility] [address] [place] [address] [address] Harshal Valenzuela Note: Comment Normal [facility] Comment on above: Result Comment: The Pap smear is a screening test designed to aid in the detection of premalignant and malignant conditions of the uterine cervix. It is not a diagnostic procedure and should not be used as the sole means of detecting cervical cancer. Both false-positive and false-negative reports do occur. . Performed at: WB Performed By: #### 4 [id number] #### [facility] [address] [place] [address] [address] Harshal Valenzuela Performed by: Comment Normal [facility] Comment on above: Result Comment: Carin Paredes, Charge Rn (ASCP) Performed at: WB Performed By: #### 4 [id number] #### [facility] [address] [place] [address] [address] Harshal Valenzuela Specimen adequacy: Comment Normal [facility] Comment on above: Result Comment: Sati sfactory for evaluation. No endocervical component is identified. Performed at: WB Performed By: #### 4 [id number] #### [facility] [address] [place] [address] [address] Harshal Valenzuela MG MAMM SCREEN 3D LM CADon 08-28-2022 MG MAMM SCREEN 3D LM CAD Patient: ELISABETH GONZALEZ Exam Date: 08/28/2022 : 1985 Gender:F Ordering : FENG BOWDEN . Admission #: [id number] Family : Order #: [id number] CLICK HERE TO VIEW EXAM RADIOLOGY REPORT [...] Treatments None Family Cancers None LOCATION: [facility] BREAST COMPOSITION: Extremely dense, which lowers the [...] PALPABLE LUMP SHOULD BE BIOPSIED. Dictated by: Joaquin Chambers M.D. on 08/30/2022 at 13:13 Approved by: Joaquin Chambers M.D. on 08/30/2022 at 13:15 Normal [facility] GROUP A STREP CULTUREon - S. pyogenes Ag Ql (Unsp spec) Culture Observations: NEGATIVE FOR GROUP A STREPTOCOCCUS. Normal [facility] Comment on above: Performed By: #### G RASTCX, SSCRN #### [facility] [address] [place] [address] Dr. Harshal Valenzuela STREPT SCREENon 08-16-2022 STREP SCREEN A Negative Normal NEGATIVE [facility] Comment on above: Performed By: #### G RASTCX, SSCRN #### [facility] [address] [place] [address] Dr. Harshal Valenzuela QUANTIFERON TB GOLD PLUSon 05-06-2021 QuantiFERON Criteria Comment Normal [facility] Comment on above: Result Comment: Danielito [...] test. Performed By: #### Q NTTB #### [facility] [address] [place] [address] Dr. Harshal Valenzuela QuantiFERON Mitogen Value >10.00 Normal [facility] Comment on above: Performed By: #### Q NTTB #### [facility] [address] [place] [address] Dr. Harshal Valenzuela QuantiFERON Nil Value 0.04 IU/mL [facility] Comment on above: Performed By: #### Q NTTB #### [facility] [address] [place] [address] Dr. Harshal Valenzuela QuantiFERON TB1 Ag Value 0.03 IU/mL Normal [facility] Comment on above: Performed By: #### Q NTTB #### [facility] [address] [place] [address] Dr. Harshal Valenzuela QuantiFERON TB2 Ag Value 0.03 IU/mL Normal [facility] Comment on above: Performed By: #### Q NTTB #### [facility] [address] [place] [address] [address] Harshal Valenzuela QuantiFERON Incubation Incubation performed. Normal [facility] Comment on above: Performed By: #### Q NTTB #### [facility] [address] [place] [address] Dr. Harshal Valenzuela QuantiFERON-TB Gold Plus Negative Normal Negative [facility] Comment on above: Result Comment: No r esponse to M tuberculosis antigens detected. Infection with M tuberculosis is unlikely, but high risk individuals should be considered for additional testing (ATS/IDSA/CDC Clinical Practice Guidelines, 2017). The reference range is an Antigen minus Nil result of <0.35 IU/mL. Chemiluminescence immunoassay methodology Performed By: #### Q NTTB #### [facility] [address] [place] [address] Dr. Harshal Valenzuela HEPATITIS B SURFACE ANTIBODY , QUANTon 03-03-2022 Hepatitis B Surf AB Quant 23.6 mIU/mL Normal Immunity>9.9 [facility] Comment on above: Result Comment: Stat us of Immunity Anti-HBs Level Inconsistent with Immunity 0.0 - 9.9 Consistent with Immunity >9.9 Performed By: #### H EPBSRF #### [facility] [address] [place] [address] Dr. Harshal Valenzuela MMR IMMUNITYon 03-03-2022 Mumps Abs, IgG <9.0 Critically low Immune >10.9 [facility] Comment on above: Result Comment: Nega tive <9.0 Equivocal 9.0 - 10.9 Positive >10.9 A positive result generally indicates past exposure to Mumps virus or previous vaccination. Performed By: #### M MRIMMU #### [facility] [address] [place] [address] Dr. Harshal Valenzuela Rubella Antibodies, IgG <0.90 Critically low Immune > 0.99 [facility] Comment on above: Result Comment: Non- immune <0.90 Equivocal 0.90 - 0.99 Immune >0.99 Performed By: #### M MRIMMU #### [facility] [address] [place] [address] Dr. Harshal Valenzuela Rubeola Ab, IgG 52.5 AU/mL Normal Immune >16.4 [facility] Comment on above: Result Comment: Nega tive <13.5 Equivocal 13.5 - 16.4 Positive >16.4 Presence of antibodies to Rubeola is presumptive evidence of immunity except when acute infection is suspected. Performed By: #### M MRIMMU #### [facility] [address] [place] [address] Dr. Harshal Valenzuela VARICELLA IGG ABon 2 Varicella Zoster IgG 394 index Normal Immune >165 [facility] Comment on above: Result Comment: Nega tive <135 Equivocal 135 - 165 Positive >165 A positive result generally indicates exposure to the pathogen or administration of specific immunoglobulins, but it is not indication of active infection or stage of disease. Performed By: #### V ARCEL #### [facility] [address] [place] [address] Dr. Harshal Valenzuela CMV IGG ANTIBODYon 8 CMV IGG ANTIBODY 1.50 U/mL Abnormal <0.60 [facility] Comment on above: Order Comment: REASO N FOR EXAM E03.9 Result Comment: U/mL Interpretation <0.60 Negative0.60 - 0.69 Equivocal> or = 0.70 PositiveA positive result indicates that the patient hasantibody to CMV. It does not differentiate betweenan active or past infection.Test Performed by [employer] [facility],[address] [place] [address] 201[address]Vkntqkkkevon Jaffe M.D., Ph.D., Director of [phone], CLIA [id number] CMV IGM ANTIBODYon 11-09-201 8 CMV IGM ANTIBODY <30.00 Normal <30.00 [facility] Comment on above: Order Comment: NICOLEO N FOR EXAM E03.9 Result Comment: AU/m L Interpretation < 30.00 No Antibody Rxeipqye66.00 - 34.99 Equivocal > or = 35.00 [...] in two or more weeks.Test Performed by [employer],[address] [place], [place] [address]KxagyzyKori Jaffe M.D., Ph.D., Director of [phone], CLIA [id number] EBV VIRAL CAPSID AB IGGon EBV VIRAL CAPSID AB IGG 428.00 U/mL Abnormal <18.00 [facility] Comment on above: Order Comment: ANEL N FOR EXAM E03.9 Result Comment: U/mL Interpretation <18.00 Wnckcoqc46.00 - 21.99 Equivocal >21.99 PositiveTest Performed by [employer],[address] [place], [place] [address]LbvjnkkKori Jaffe M.D., Ph.D., Director of [phone], CLIA [id number] EBV VIRAL CAPSID AB IGMon EBV VIRAL CAPSID AB IGM <36.00 Normal <36.00 M [facility] Comment on above: Order Comment: NICOLEO N FOR EXAM E03.9 Result Comment: U/mL Interpretation <36.00 Wzkzigdg62.00 - 43.99 Equivocal >43.99 PositiveTest Performed by [employer],[employer] [facility],[address] [place] [address]Gbncadzkevon aJffe M.D., Ph.D., Director of [phone], [place] [id number] COMPLETE BLOOD COUNTon 02-26 ABSOLUTE SEGS 3400 /cmm Normal 4537-7933 [facility] Comment on above: Order Comment: REASO N FOR EXAM E03.9 Performed By: #### T 4F, TSH ####MAIN LABCLIA:[id number] [place] [address] Basophils Auto #/vol (Bld) 100 /cmm Normal <216 [facility] Comment on above: Order Comment: REASO N FOR EXAM E03.9 Performed By: #### T 4F, TSH ####MAIN LABCLIA:[id number] [place] [address] Basophils/100 WBC Auto (Bld) 0.8 % Normal <2.0 [facility] Comment on above: Order Comment: REASO N FOR EXAM E03.9 Performed By: #### T 4F, TSH ####MAIN LABCLIA:[id number] [facility] [place] [address] Eosinophils Auto #/vol (Bld) 100 /cmm Normal <432 [facility] Comment on above: Order Comment: REASO N FOR EXAM E03.9 Performed By: #### T 4F, TSH ####MAIN LABCLIA:[id number] [facility] [place] [address] Eosinophils/100 WBC Auto (Bld) 1.1 % Normal <4.0 [facility] Comment on above: Order Comment: REASO N FOR EXAM E03.9 Performed By: #### T 4F, TSH ####MAIN LABCLIA:[id number] [facility] [place] [address] Erythrocyte distribution width Auto Ratio (RBC) 13.1 % Normal 11.5-14.5 [facility] Comment on above: Order Comment: REASO N FOR EXAM E03.9 Performed By: #### T 4F, TSH ####MAIN LABCLIA:[id number] [facility] [place] [address] Hematocrit Auto Volume Fraction (Bld) 38.1 % Normal 38.0-47.0 [facility] Comment on above: Order Comment: REASO N FOR EXAM E03.9 Performed By: #### T 4F, TSH ####MAIN LABCLIA:[id number] [facility] [address] Hemoglobin mass conc (Bld) 12.9 g/dL Normal 12.0-16.4 [facility] Comment on above: Order Comment: REASO N FOR EXAM E03.9 Performed By: #### T 4F, TSH ####MAIN LABCLIA:[id number] [facility] [place] [address] Lymphocytes Auto #/vol (Bld) 2300 /cmm Normal 960-4752 [facility] Comment on above: Order Comment: REASO N FOR EXAM E03.9 Performed By: #### T 4F, TSH ####MAIN LABCLIA:[id number] [facility] [place] [address] Lymphocytes/100 WBC Auto (Bld) 34.0 % Normal 20.0-44.0 [facility] Comment on above: Order Comment: REASO N FOR EXAM E03.9 Performed By: #### T 4F, TSH ####MAIN LABCLIA:[id number] [facility] [address] MCH Auto Entitic mass (RBC) 33.7 g/dL Normal 32.0-36.0 [facility] Comment on above: Order Comment: REASO N FOR EXAM E03.9 Performed By: #### T 4F, TSH ####MAIN LABCLIA:[id number] [facility] [place] [address] MCH Auto Entitic mass (RBC) 28.7 pg Normal 27.0-31.0 [facility] Comment on above: Order Comment: REASO N FOR EXAM E03.9 Performed By: #### T 4F, TSH ####MAIN LABCLIA:[id number] [facility] [place] [address] MCV Auto Entitic volume (RBC) 85.1 fL Normal 80.0-96.0 [facility] Comment on above: Order Comment: REASO N FOR EXAM E03.9 Performed By: #### T 4F, TSH ####MAIN LABCLIA:[id number] [facility] [place] [address] Monocytes Auto #/vol (Bld) 900 /cmm Normal 96-972 [facility] Comment on above: Order Comment: REASO N FOR EXAM E03.9 Performed By: #### T 4F, TSH ####MAIN LABCLIA:[id number] [facility] [address] Monocytes/100 WBC Auto (Bld) 13.6 % High 2.0-9.0 [facility] Comment on above: Order Comment: REASO N FOR EXAM E03.9 Performed By: #### T 4F, TSH ####MAIN LABCLIA:[id number] [facility] [place] [address] Neutrophils/100 WBC Auto (Bld) 50.5 % Normal 50.0-70.0 [facility] Comment on above: Order Comment: REASO N FOR EXAM E03.9 Performed By: #### T 4F, TSH ####MAIN LABCLIA:[id number] [facility] [place] [address] Platelets Auto #/vol (Bld) 248 10 3/cmm Normal 130-400 [facility] Comment on above: Order Comment: REASO N FOR EXAM E03.9 Performed By: #### T 4F, TSH ####MAIN LABCLIA:[id number] [facility] [place] [address] RBC Auto #/vol (Bld) 4.48 10 6/cmm Normal 4.20-5.40 [facility] Comment on above: Order Comment: REASO N FOR EXAM E03.9 Performed By: #### T 4F, TSH ####MAIN LABCLIA:[id number] [facility] [place] [address] WBC Auto #/vol (Bld) 6.8 10 3/cmm Normal 4.8-10.8 [facility] Comment on above: Order Comment: REASO N FOR EXAM E03.9 Performed By: #### T 4F, TSH ####MAIN LABCLIA:[id number] [place] [address] MONONUCLEOSIS SCREENon 02-26 MONONUCLEOSIS SCREEN Negative Normal [facility] Comment on above: Order Comment: REASO N [...] Performed By: #### T 4F, TSH ####MAIN LABCLIA:[id number] [place] [address] MRI HIPon 02-20-2018 MRI HIP [facility] [place] [address] [phone]____ Pt Location: IMGCTR/ DEP REF Pt RM#: MR #: [id number] DATE: 02/20/18 [facility] ADM#: [id number] #: [id number] ELISABETH GONZALEZ MDOB: 1985 Age/Sex: 32 / F REPORT STATUS: SignedORDERING PHYSICIAN: JULIANA Fay/SAQIB HURTADO PHYSICIAN: Ramonita Nassar APRN-KEVIN HISTOR Y/REASON: JOINT DISORDERCLINICAL HISTORY: Right hip pain.TECHNICAL FACTORS:EXAMINATION: [...] tendons.REPORT# [id number] READ BY: Naomy Tay M.D. [id number] REPORT RELEASED BY: Naomy Tay M.D. 02/21/182009Transcribed Date/Time: 02/20/181801 JLECC: ASLOME Fay [facility] MRI PELVISon 02-20-2018 MRI PELVIS [place] [phone]____ Pt Location: [facility] REF Pt RM#: MR #: [id number] DATE: 02/20/18 1346 ADM#: [id number] #: [id number] ELISABETH GONZALEZ MDOB: 1985 Age/Sex: 32 / F REPORT STATUS: SignedORDERING PHYSICIAN: SALOME FayPRIVATE/PRIMA BRYANT PHYSICIAN: SALOME Fay HISTOR Y/REASON: JOINT DISORDERCLINICAL HISTORY: Pelvic pain.TECHNICAL FACTORS: Coronal and axial T1 weighted images, coronal STIR images,axial T2 weightedimages with fat saturation were performed.EXAMINATION : MRI PELVISFINDINGS: The alignment of the sacroiliac joints and pubic symphysis isanatomic. The alignmentof the hip joints is anatomic.The visualized part of the uterus and ovaries show no abnormality.The urinary bladder is unremarkable.There is no evidence of free fluid in the pelvis.IMPRESSION:Unr emarkable study.REPORT# [id number] READ BY: Naomy Tay M.D. FINAL REPORT RELEASED BY: Naomy Tay M.D. 02/21/182009Transcribed Date/Time: 02/20/18 5614 JLECC: Ramonita Nassar, STEAM CLOTHES PRESS OPERATOR-PROMOTIONS REPRESENTATIVE Normal [facility] COMPREHENSIVE METABOLIC PANE Zach 01-22-2018 Albumin mass conc 4.8 g/dL High 3.0-4.5 [facility] Comment on above: Order Comment: REASO N FOR EXAM Z00.00 Performed By: #### Daksha VAZQUEZ VASR ####MAIN LABCLIA:[id number] [place] [address] Albumin/Globulin mass ratio 1.7 {ratio} High 1-1.4 [facility] Comment on above: Order Comment: REASO N FOR EXAM Z00.00 Performed By: #### Daksha VAZQUEZ VASR ####MAIN LABCLIA:[id number] [place] [address] ALP enzyme act/vol 53 U/L Normal 35-104 [facility] Comment on above: Order Comment: REASO N FOR EXAM Z00.00 Performed By: #### Daksha VAZQUEZ VASR ####MAIN LABCLIA:[id number] [place] [address] ALT enzyme act/vol 12 U/L Normal 0-33 [facility] Comment on above: Order Comment: REASO N FOR EXAM Z00.00 Performed By: #### C GEORGE, VASR ####MAIN LABCLIA:[id number] [facility] [place] [address] Anion gap 3 molar conc 15 mmol/L Normal 9-18 [facility] Comment on above: Order Comment: REASO N FOR EXAM Z00.00 Performed By: #### C MP, VASR ####MAIN LABCLIA:[id number] [facility] [address] AST enzyme act/vol 16 U/L Normal 0-32 [facility] Comment on above: Order Comment: REASO N FOR EXAM Z00.00 Performed By: #### C GEORGE, VASR ####MAIN LABCLIA:[id number] [facility] [address] Bilirubin mass conc 0.5 mg/dL Normal 0.2-1.2 [facility] Comment on above: Order Comment: REASO N FOR EXAM Z00.00 Performed By: #### C GEORGE, VASR ####MAIN LABCLIA:[id number] [facility] [address] Calcium mass conc 9.6 mg/dL Normal 8.6-10.0 [facility] Comment on above: Order Comment: REASO N FOR EXAM Z00.00 Performed By: #### C GEORGE, VASR ####MAIN LABCLIA:[id number] [facility] [address] Chloride molar conc 103 mmol/L Normal 98-107 [facility] Comment on above: Order Comment: REASO N FOR EXAM Z00.00 Performed By: #### C GEORGE, VASR ####MAIN LABCLIA:[id number] [facility] [place] [address] CO2 molar conc 26 mmol/L Normal 22-29 [facility] Comment on above: Order Comment: REASO N FOR EXAM Z00.00 Performed By: #### C MP, VASR ####MAIN LABCLIA:[id number] [facility] [place] [address] Creatinine mass conc 0.72 mg/dL Normal 0.50-0.90 [facility] Comment on above: Order Comment: REASO N FOR EXAM Z00.00 Performed By: #### C GEORGE, VASR ####MAIN LABCLIA:[id number] [facility] [place] [address] GFR/1.73 sq M.predicted MDRD vol rate/area 99 /1.73 m2 Normal >60 mL/min [facility] Comment on above: Order Comment: REASO N FOR EXAM Z00.00 Result Comment: Norm al RangeStage Description:1 Normal or Increased GFR >=902 Mild Decrease in GFR 60-903 Moderately Decreased GFR 30-594 Severely Decreased GFR 15-295 Kidney Failure <15 Performed By: #### C GEORGE, VASR ####MAIN LABCLIA:[id number] [facility] [place] [address] Globulin Calculated mass conc (S) 2.8 g/dL Normal 2.3-3.5 [facility] Comment on above: Order Comment: REASO N FOR EXAM Z00.00 Performed By: #### C GEORGE, VASR ####MAIN LABCLIA:[id number] [facility] [place] [address] Glucose mass conc 95 mg/dL Normal 74-109 [facility] Comment on above: Order Comment: REASO N FOR EXAM Z00.00 Performed By: #### C GEORGE, VASR ####MAIN LABCLIA:[id number] [facility] [place] [address] Potassium molar conc 4.3 mmol/L Normal 3.5-5.1 [facility] Comment on above: Order Comment: REASO N FOR EXAM Z00.00 Performed By: #### C GEORGE, VASR ####MAIN LABCLIA:[id number] [facility] [place] [address] Protein mass conc 7.6 g/dL Normal 6.4-8.3 [facility] Comment on above: Order Comment: REASO N FOR EXAM Z00.00 Performed By: #### C GEORGE, VASR ####MAIN LABCLIA:[id number] [facility] [place] [address] Sodium molar conc 140 mmol/L Normal 136-145 [facility] Comment on above: Order Comment: REASO N FOR EXAM Z00.00 Performed By: #### C MP, VASR ####MAIN LABCLIA:[id number] [facility] [place] [address] Urea nitrogen mass conc (Bld) 9 mg/dL Normal 6-20 [facility] Comment on above: Order Comment: REASO N FOR EXAM Z00.00 Performed By: #### C MP, VASR ####MAIN LABCLIA:[id number] [facility] [place] [address] Urea nitrogen/Creatinine mass ratio 12.5 mg/mg Normal [facility] Comment on above: Order Comment: REASO N FOR EXAM Z00.00 Performed By: #### C MP, VASR ####MAIN LABCLIA:[id number] [place] [address] FREE T4 (FREE THYROXINE)on 1 T4 free mass conc 1.74 ng/dL High 0.93-1.7 [facility] Comment on above: Order Comment: REASO N FOR EXAM Z00.00 Performed By: #### T 4F, TSH ####MAIN LABCLIA:[id number] [place] [address] THYROID STIMULATING HORMONEo n 01-22-2018 Thyrotropin Qn 0.86 uIU/mL Normal 0.27-4.20 [facility] Comment on above: Order Comment: REASO N FOR EXAM Z00.00 Performed By: #### T 4F, TSH ####MAIN LABCLIA:[id number] [place] [address] VASCULAR RISK PANELon 2017 Cholesterol in HDL mass conc 52 mg/dL Low >65 [facility] Comment on above: Order Comment: REASO N FOR EXAM Z00.00 Performed By: #### C MP, VASR ####MAIN LABCLIA:[id number] [place] [address] Cholesterol in LDL mass conc 96 mg/dL Normal <129 [facility] Comment on above: Order Comment: REASO N FOR EXAM Z00.00 Performed By: #### C MP, VASR ####MAIN LABCLIA:[id number] [place] [address] Cholesterol mass conc 160 mg/dL Normal 0-199 [facility] Comment on above: Order Comment: REASO N FOR EXAM Z00.00 Performed By: #### C GEORGE, VASR ####MAIN LABCLIA:[id number] [place] [address] Triglyceride mass conc 58 mg/dL Normal 0-199 [facility] Comment on above: Order Comment: REASO N FOR EXAM Z00.00 Performed By: #### C GEORGE, VASR ####MAIN LABCLIA:[id number] [place] [address] VLDL CHOLESTEROL 12 mg/dL Normal 5-40 [facility] Comment on above: Order Comment: REASO N FOR EXAM Z00.00 Performed By: #### C GEORGE, VASR ####MAIN LABCLIA:[id number] [place] [address] HIP UNI 2-3 VIEWS ROUTINEon 07-30-2017 HIP UNI 2-[address] V[address]OUT[address] [phone]____ Pt Location: [facility] Pt #: #: [id number] DATE: 07/30/17816 [facility]#: [id number] #: [id number] ELISABETH GONZALEZ MDOB: 1985 Age/Sex: 32 / F REPORT STATUS: SignedORDERING PHYSICIAN: JULIANA Fay/SAQIB HURTADO PHYSICIAN: Ramonita Nassar APRN-KEVIN HISTOR Y/REASON: M25.551CLINICAL HISTORY: Hip pain.TECHNICAL FACTORS: 2 view right hip.EXAMINATION: HIP UNI 2-3 VIEWS ROUTINEFINDINGS: The alignment of the osseous structures is preserved. I see nodefinite osteolytic orosteoblastic lesions. The fat pads show no definite abnormalities.IMPRESS ION:I see no definite bone or soft tissue abnormality in the right hip.REPORT# [id number] READ BY: Clara Tolbert MD 07/30/17 1252FINAL REPORT RELEASED BY: Clara Tolbert MD 07/31/17 1016Transcribed Date/Time: 07/30/17 1535 JLECC: Ramonita Nassar, STEAM CLOTHES PRESS OPERATOR-PROMOTIONS REPRESENTATIVE Normal [facility] FREE T4 (FREE THYROXINE)on 0 07-22-2017 T4 free mass conc 1.31 ng/dL Normal 0.93-1.7 [facility] Comment on above: Order Comment: REASO N FOR EXAM E03.9 Performed By: #### T 4F, TSH ####MAIN LABCLIA:[id number] [place] [address] THYROID STIMULATING HORMONEo n 07-22-2017 Thyrotropin Qn 1.21 uIU/mL Normal 0.27-4.20 [facility] Comment on above: Order Comment: REASO N FOR EXAM E03.9 Performed By: #### T 4F, TSH ####MAIN LABCLIA:[id number] [place] [address] URINE CULTUREon 07-08-2017 Bacteria identified Cx Nom (U) URINE CULTURE: No growth after 2 days Normal [facility] Comment on above: Order Comment: REASO N FOR EXAM R30.0 Performed By: #### U RINE ####MAIN LABCLIA:[id number] [place] [address] HPV High Riskon 03-07-2017 HPV High Risk Negative Normal Negative [facility] Comment on above: Result Comment: for types 16,18,31,33,35,39,45,51,52,56,58,59,66 and 68.Methodology: Nucleic Acid Amplification Test (NAAT) Performed By: #### L 800.5150 ####Main Laboratory ([facility])[address] [place], [place] [phone] Nivar, MD Gynecologic (PAP) Specimenon 02-27-2017 Gynecologic (PAP) Specimen Normal [facility] Comment on above: Result Comment: Name : ELISABETH GONZALEZ Age: 31 /Sex: 1985/F MR#: [id number] Reg Date: 02/27/[address]: Shireen Philippe MD#: [id number] Status: DEP [facility] [place]: -Copies to:Mirtha Philippe MD; None Specimen: [id number] Received: Status: YOSELIN Vanegas Num: [id number] Collected: [id number] Type: COLD PRESS OPERATOR Subm Doc: Mirtha Philippe MD CYTOLOGY REPORT [...] Amplification Test (NAAT)Signed (signature on file) INEZ Hernandez(ASCP)[facility] 03/05/17 1115 (signature on file) [facility] 03/07/17 1425 Performed By: #### P COLD PRESS OPERATOR ####Main Laboratory ([facility] [address], [place] [phone] Nivar, MD Vital Signs Date Time Vital Sign Value Performing Clinician Facility 06-24-2024 11:33-0500 Body mass index (BMI) [Ratio] 29.84 kg/m2 [email or web address] Phone: [facility] 06-24-2024 11:33-0500 Body weight 73.99 kg [email or web address] Phone: [facility] 06-24-2024 11:33-0500 Diastolic blood pressure 66 mm[Hg] [email or web address] Phone: [facility] 06-24-2024 11:33-0500 Systolic blood pressure 108 mm[Hg] [email or web address] Phone: [facility] 06-08-2024 10:23-0500 Body height 157.5 cm [email or web address] Phone: [facility] 06-08-2024 10:23-0500 Body mass index (BMI) [Ratio] 31.06 kg/m2 Rakesh Mayda DO Work Phone: [facility] 06-08-2024 10:23-0500 Body weight 77.02 kg Rakesh Mayda DO Work Phone: [facility] 06-08-2024 10:23-0500 Diastolic blood pressure 70 mm[Hg] Rakesh Mayda DO Work Phone: [facility] 06-08-2024 10:23-0500 Systolic blood pressure 120 mm[Hg] Rakesh Mayda DO Work Phone: [facility] 05-01-2024 08:03-0500 Body height 160.02 cm PHYSICIAN [facility] 05-01-2024 08:03-0500 Body weight 72.57 kg PHYSICIAN NO [facility] 11-08-2023 10:15-0400 Blood Pressure Location Oscar NILL [facility] [place] 11-08-2023 10:15-0400 Diastolic blood pressure 72 mm[Hg] Oscar NILL [facility] [place] 11-08-2023 10:15-0400 Heart rate 72 /min Oscar NILL [facility] [place] 11-08-2023 10:15-0400 Respiratory rate 16 /min Oscar NILL [facility] [place] 11-08-2023 10:15-0400 Systolic blood pressure 113 mm[Hg] Oscar NILL [facility] [place] 10-16-2023 15:08-0400 Body height 165.1 cm TIERNEY Bowden Work Phone: [facility] 10-16-2023 15:08-0400 Body weight 72.57 kg TIERNEY Bowden Work Phone: [facility] Encounters Encounter Date Encounter Type Care Provider Facility Start: 07-06-2024 End: 07-06-2024 ambulatory LEIA BOWDEN Not Available Start: 06-24-2024 End: 06-24-2024 Bamboo flowsheet Rakesh Mayda DO Work Phone: [facility] Start: 06-24-2024 End: 06-24-2024 Bamboo flowsheet Rakesh Mayda DO Work Phone: [facility] Start: 06-24-2024 End: 06-24-2024 Office outpatient visit 15 minutes Rakesh Mayda DO Work Phone: [facility] Comment on above: Pre-op examination; Menorrhagia with regular cycle; Abnormal uterine bleeding; Pelvic pain in female Start: 06-24-2024 End: 06-24-2024 Preprocedural examination done Rakesh Mayda DO Work Phone: [facility] Healthcare Start: 06-24-2024 End: 06-24-2024 ambulatory RAKESH MAYDA Not Available Start: 06-08-2024 End: 06-08-2024 Bamboo flowsheet Rakesh Mayda DO Work Phone: [facility] Start: 06-08-2024 End: 06-08-2024 Bamboo flowsheet Rakesh Mayda DO Work Phone: [facility] Start: 06-08-2024 End: 06-08-2024 ambulatory RAKESH MAYDA Not Available Start: 06-08-2024 End: 06-08-2024 Office outpatient visit 15 minutes Rakesh Mayda DO Work Phone: [facility] Comment on above: Menorrhagia with reg ular cycle; Encounter for weight management Start: 05-26-2024 End: 05-26-2024 Clinisync Result Encounter Rakesh Mayda DO Work Phone: [facility] External Department Unsolicited Start: 05-26-2024 End: 05-26-2024 Clinisync Result Encounter Rakesh Ohara DO Work Phone: [facility] External Department Unsolicited Start: 05-01-2024 End: 05-01-2024 Patient encounter procedure PHYSICIAN NO [facility] [place] Work Phone: Start: 05-01-2024 End: 05-01-2024 ambulatory PHYSICIAN NO [facility] Work Phone: Start: 12-09-2023 End: 12-09-2023 Telephone encounter Basilia Chakraborty RN [facility] [place] [facility] Start: 12-02-2023 End: 12-02-2023 Documentation procedure Basilia Chakraborty RN [facility] [place] [facility] Start: 12-02-2023 End: 12-02-2023 ambulatory [facility] Start: 11-08-2023 End: 11-08-2023 ambulatory Oscar R NILL Facility:[facility] Start: 11-08-2023 End: 11-08-2023 Patient encounter procedure Oscar R NILL [facility] [place] Start: 11-05-2023 ambulatory Oscar R NILL Facility :[facility] Start: 10-29-2023 End: 10-29-2023 ambulatory Oscar R NILL Facility[place] Start: 10-29-2023 End: 10-29-2023 Patient encounter procedure Oscar R NILL [facility] Start: 10-18-2023 ambulatory Oscar NILL Facility:[facility] Start: 10-18-2023 ambulatory Oscar NILL Facility:[facility] Start: 10-16-2023 End: 10-16-2023 Patient encounter procedure TIERNEY Bowden Work Phone: [facility] [place] Work Phone: Start: 10-16-2023 End: 10-16-2023 ambulatory NON STAFF [facility] Work Phone: Start: 09-04-2023 End: 09-04-2023 ambulatory LEIA BOWDEN Not Available Start: 08-28-2022 End: 08-29-2022 ambulatory LEIA BOWDEN . Facility: Start: 08-21-2022 End: 08-21-2022 ambulatory LEIA BOWDEN . Facility:[facility] Start: 08-16-2022 End: 08-17-2022 ambulatory VALENTINE KERN Facility:[facility] Start: 03-02-2022 End: 03-02-2022 ambulatory JONATAN BANDA Facility: Start: 02-26-2018 End: 02-26-2018 Patient encounter procedure [facility] Facility:[facility] Start: 02-20-2018 End: 02-20-2018 Patient encounter procedure [facility] Facility:[facility] Start: 01-22-2018 Encounter for genera l adult medical examination without abnormal findings [facility] Start: 01-22-2018 End: 01-22-2018 Patient encounter procedure [facility] Facility:[facility] Start: 08-26-2017 End: 08-26-2017 Patient encounter procedure [facility] Facility:[facility] Start: 07-30-2017 End: 07-30-2017 Patient encounter procedure [facility] Facility:[facility] Start: 07-22-2017 End: 07-22-2017 Patient encounter procedure [facility] Facility:[facility] Start: 07-08-2017 End: 07-08-2017 Patient encounter procedure [facility] Facility:[facility] Start: 02-27-2017 End: 02-27-2017 Ambulatory Endyafunmilayo A Denae Facility:[facility] Procedures Date Procedure Procedure Detail Performing Clinician Start: 05-26-2024 US PELVIS W/ TRANSVAGINAL Rakesh Mayda DO Work Phone: Start: 05-26-2024 ALL CBC WITH AUTO DIFF Rakesh Mayda DO Work Phone: Start: 05-01-2024 MRI of bilateral paul asts with contrast PHYSICIAN NO FAMILY Thyroidectomy Oscar NILL Plan of Treatment Date Care Activity Detail Author Start: 12-29-2026 DTaP,Tdap and Td Vaccines (2 - Td or Tdap) DTaP,Tdap and Td Vaccines (2 - Td or Tdap) [facility] Start: 07-06-2024 End: 07-06-2024 Patient encounter procedure 07/06/2024 1:30 PM EDT Office Visit [facility] [address] [place] [id number] Leia Bowden PA [address] [place] [address] [facility] Start: 06-24-2024 End: 06-24-2024 Patient encounter procedure [facility] Comment on above: Arrived Start: 06-08-2024 End: 06-08-2024 Patient encounter procedure 06/08/2024 10:10 AM EST Office Visit [facility] [address] [place] [phone] Rakesh Ohara DO [address] [place] [address] [facility] Start: 12-22-2023 Influenza vaccination Influenza Vacc ine [facility] Start: 10-16-2023 MR Breast - bilateral F [facility] Start: 10-16-2023 MRI of bilateral paul asts with contrast MR breast BI wo/w con CAD [facility] Start: 07-02-2004 Screening for malign ant neoplasm of cervix Pap Smear [facility] Start: 07-02-2001 Adult BMI Screening Adult BMI Screen ing [facility] Start: 1995 Depression Screening Depression Scre ening [facility] Start: 1995 Tobacco Screening Tobacco Screening [facility] Immunizations Immunization Date Immunization Notes Care Provider Fa arben 02-10-2016 influenza virus vaccine, unspecified formulation Basilia Chakraborty RN [facility] Payers Date Payer Category Payer Blue [employer] Blue [employer] BCBS [id number] 2022 Unknown ANTHEM BLUE ACCE SS (PPO) [id number] 2022-Present [phone] [address] [place] [address] [id number] 2022 Unknown [id number] 2017 Unknown [id number] 2016 Unknown [id number] 1983 Unknown [id number] 2.16840.1.855400.3.579.2 .593 1983 Unknown [id number] 2.16840.1.366533.3.579.2 .593 1983 Unknown [id number] 2.16840.1.950163.3.579.2 .593 1983 Unknown [id number] 2.16840.1.689531.3.579.2 .1286 1983 Unknown [id number] 2.16840.1.894516.3.579.2 .1286 1983 Unknown [id number] 2.16840.1.507939.3.579.2 .1286 1983 Unknown [id number] 2.16840.1.262492.3.579.2 .727 1983 Unknown [id number] 2.16.840.1.729151.3.579.2 .727 1983 Unknown [id number] 2.16840.1.342923.3.579.2 .727 1983 Unknown [id number] 2.16.840.1.429698.3.579.2 .727 1983 Unknown [id number] 2.16.840.1.052243.3.579.2 .1259 1983 Unknown [id number] 2.16.840.1.487100.3.579.2 .1259 1983 Unknown [id number] 2.16.840.1.792031.3.579.2 .1259 1983 Unknown [id number] 2.16.840.1.868201.3.579.2 .1259 1959 Self-pay Unknown [id number] 2.16840.1.609072.3.579.2 .543 Unknown [id number] 2.840.1.049204.3.579.2 .543 Unknown [id number] 2.840.1.451124.3.579.2 .543 Unknown [id number] 2.16840.1.656833.3.579.2 .543 Unknown [id number] 2.840.1.542267.3.579.2 .543 Unknown [id number] 2.16840.1.015318.3.579.2 .543 Unknown [id number] 2.840.1.762166.3.579.2 .543 Unknown [id number] 2.840.1.256847.3.579.2 .593 Unknown [id number] 2.840.1.718515.3.579.2 .531 Unknown [id number] 2.840.1.453320.3.579.2 .531 Social History Date Type Detail Facility Tobacco smoking stat [facility] Unknown if ever smoked [facility] Work Phone: Start: 1985 Sex Assigned At Female F [facility] Tobacco smoking status No Smokin g Status Entered [facility] Sex Assigned At Female [facility] Start: 11-08-2023 Tobacco smoking status Never s moked tobacco (finding) [facility] [place] Tobacco smoking status Never Abdiel [facility] [place] Tobacco smoking stat [facility] Unknown if ever smoked [facility] Start: 05-02-2024 Sex Female (finding) [facility] Start: 1985 Sex assigned at Not on file [employer] [facility] Functional Status Date Assessment Result Facility 11-08-2023 Functional Status N/A [facility] [place] Clinical Notes 10-18-2023 to 06-24-2024 Angelica Preston - 06/24/2024 11:30 AM Lucrecia Sanchez LPN - 06/08/2024 10:10 AM ESTTelephone Encounter - Basilia Chakraborty RN - 12/09/2023 1:40 PM EDTScristiane Chakraborty RN - 12/02/2023 9:52 AM EDT Note Date & Type Note Facility 06-24-2024 History of Presen t illness Narrative Reason for Appointment: Patient ID: Elisabeth Gonzalez is a 38 y.o. female who presents for Pre-op Visit Patient presents today for Pre Op appointment. Patient is scheduled to undergo Endometrial Ablation with Leanne and EMBX (prior to procedure) on 07/24/[address] Ohara at [facility]. MEDICATIONS Current Outpatient Medications Medication Instructions levothyroxine (Synthroid, Levoxyl) 100 MCG tablet TAKE 1 TABLET BY MOUTH EVERY DAY IN THE MORNING ON EMPTY STOMACH phentermine (ADIPEX-P) 37.5 mg, Oral, Daily before breakfast spironolactone (Aldactone) 50 MG tablet TAKE 1 TABLET BY MOUTH EVERY DAY FOR 90 DAYS ALLERGIES Allergies Allergen Reactions Cefzil [Cefprozil] PROBLEMS Active Ambulatory Problems Diagnosis Date Noted No Active Ambulatory Problems Resolved Ambulatory Problems Diagnosis Date Noted No Resolved Ambulatory Problems No Additional Past Medical History HISTORY PAST MEDICAL HISTORY SOCIAL HISTORY No past medical history on file. Social History Tobacco Use Smoking status: Not on file Smokeless tobacco: Not on file Substance Use Topics Alcohol use: Not on file Drug use: Not on file FAMILY HISTORY No family history on file. SURGICAL HISTORY Past Surgical History: Procedure Laterality Date BI US GUIDED BREAST LOCALIZATION AND BIOPSY LEFT Left 12/02/2023 BI US GUIDED BREAST LOCALIZATION AND BIOPSY LEFT 12/02/2023 REVIEW OF SYSTEMS Review of Systems: Review of Systems Constitutional: Negative. HENT: Negative. Eyes: Negative. Respiratory: Negative. Cardiovascular: Negative. Gastrointestinal: Negative. Genitourinary: Positive for menstrual problem and pelvic pain. Musculoskeletal: Negative. Skin: Negative. Neurological: Negative. All other systems reviewed and are negative. Hematological: Negative. Endocrine: Negative. Allergic/Immunologic: Negative. OBJECTIVE Objective: Physical Exam Constitutional: Appearance: Normal appearance. She is well-developed. Cardiovascular: Rate and Rhythm: Normal rate and regular rhythm. Pulmonary: Effort: Pulmonary effort is normal. Breath sounds: Normal breath sounds. Abdominal: General: Bowel sounds are normal. There is no distension. Palpations: Abdomen is soft. Tenderness: There is no abdominal tenderness. There is no guarding or rebound. Musculoskeletal: General: No swelling. Normal range of motion. Right lower leg: No edema. Left lower leg: No edema. Neurological: Mental Status: She is alert and oriented to person, place, and time. Skin: General: Skin is warm and dry. Psychiatric: Mood and Affect: Mood normal. Behavior: Behavior normal. Vitals and nursing note reviewed. Exam conducted with a roll repairer present. Vitals: Estimated body mass index is 29.84 kg/m as calculated from the following: Height as of 06/08/24: 5' 2 . Weight as of this encounter: 163 lb 1.9 oz. BP: 108/66 No LMP recorded. ASSESSMENT & PLAN ICD-10-CM 1. Pre-op examination Z01.818 2. Menorrhagia with regular cycle N92.0 3. Abnormal uterine bleeding N93.9 4. Pelvic pain in female R10.2 Pre Op: Patient is doing well but has complaints of bleeding and pelvic pain. Patient has tried hormone therapy in the past but all attempts to subside patients issues have failed. I have discussed conservative management vs. surgical management with the patient in detail and patient desires surgical management at this time. Patient will undergo Endometrial Ablation with Leanne and EMBX (prior to procedure) on 07/24/2024. Surgical consents were signed, mmc was reviewed, and patient is to proceed to [facility] OR. Follow Up: Patient is to follow up between 1-2 weeks post op to assess proper healing and recovery from procedure. Documented by Yari Romero LPN on behalf of: Rakesh Ohara DO documented in this encounter [facility] 06-08-2024 History of Presen t illness Narrative Reason for Appointment: Patient ID: Elisabeth Gonzalez is a 38 y.o. female who presents for Menstrual Problem Patient presents today for Consult appointment. MEDICATIONS Current Outpatient Medications Medication Instructions levothyroxine (Synthroid, Levoxyl) 100 MCG tablet TAKE 1 TABLET BY MOUTH EVERY DAY IN THE MORNING ON EMPTY STOMACH phentermine (ADIPEX-P) 37.5 mg, Oral, Daily before breakfast spironolactone (Aldactone) 50 MG tablet TAKE 1 TABLET BY MOUTH EVERY DAY FOR 90 DAYS ALLERGIES Allergies Allergen Reactions Cetaphil [Aquamed] Hives PROBLEMS Active Ambulatory Problems Diagnosis Date Noted No Active Ambulatory Problems Resolved Ambulatory Problems Diagnosis Date Noted No Resolved Ambulatory Problems No Additional Past Medical History HISTORY PAST MEDICAL HISTORY SOCIAL HISTORY History reviewed. No pertinent past medical history. Social History Tobacco Use Smoking status: Not on file Smokeless tobacco: Not on file Substance Use Topics Alcohol use: Not on file Drug use: Not on file FAMILY HISTORY No family history on file. SURGICAL HISTORY Past Surgical History: Procedure Laterality Date BI US GUIDED BREAST LOCALIZATION AND BIOPSY LEFT Left 12/02/2023 BI US GUIDED BREAST LOCALIZATION AND BIOPSY LEFT 12/02/2023 REVIEW OF SYSTEMS Review of Systems: Review of Systems Genitourinary: Positive for menstrual problem and vaginal bleeding. All other systems reviewed and are negative. OBJECTIVE Objective: Physical Exam Constitutional: Appearance: Normal appearance. She is well-developed. Cardiovascular: Rate and Rhythm: Normal rate and regular rhythm. Pulmonary: Effort: Pulmonary effort is normal. Breath sounds: Normal breath sounds. Abdominal: General: Bowel sounds are normal. There is no distension. Palpations: Abdomen is soft. Tenderness: There is no abdominal tenderness. There is no guarding or rebound. Musculoskeletal: General: No swelling. Normal range of motion. Right lower leg: No edema. Left lower leg: No edema. Neurological: Mental Status: She is alert and oriented to person, place, and time. Skin: General: Skin is warm and dry. Psychiatric: Mood and Affect: Mood normal. Behavior: Behavior normal. Vitals and nursing note reviewed. Exam conducted with a roll repairer present. Vitals: Estimated body mass index is 31.06 kg/m as calculated from the following: Height as of this encounter: 5' 2 . Weight as of this encounter: 169 lb 12.8 oz. BP: 120/70 No LMP recorded (within weeks). ASSESSMENT & PLAN ICD-10-CM 1. Menorrhagia with regular cycle N92.0 2. Encounter for weight management Z76.89 phentermine (Adipex-P) 37.5 MG tablet Patient presents to office to discuss irregular/ heavy cycles. Patient voiced that she has cramping and clots about every 18-21 days. Discussed conservative vs surgical management with patient and patient desires to have surgical management at this time. Patient will setup Ablation with production associate prior to leaving office today. Patient also discussed weight management with provider and patient desires to start Adipex. Patient to schedule nurse visit for Adipex #2 in 4 weeks. Patient to be given 90day supply at that time. Patient to return to clinic in 4 weeks. Documented by Vandana Sanchez LPN on behalf of: Rakesh Ohara DO documented in this encounter [facility] 12-09-2023 Miscellaneous Notes Summary: Post-biopsy assessment Call placed to patient to check status following recent breast biopsy. Patient reports mild bruising, but no tenderness @ biopsy site. Reviewed biopsy results with patient and follow-up imaging recommendations provided by radiologist. She was encouraged to contact the [facility] Center if she develops any new problems at biopsy site. Voices understanding. [facility] Telephone encounter Note Summary: Post-biopsy assessment Call placed to patient to check status following recent breast biopsy. Patient reports mild bruising, but no tenderness @ biopsy site. Reviewed biopsy results with patient and follow-up imaging recommendations provided by radiologist. She was encouraged to contact the Breast Center if she develops any new problems at biopsy site. Voices understanding. [facility]-02-[facility]23 History of Presen t illness Narrative Summary: Post-biopsy Discharge Instructions 9:45 Met with patient following breast biopsy to review post-biopsy care instructions. Reviewed written instructions and answered related questions. Encouraged to call if any concerns related to biopsy site/breast should occur. Provided contact numbers and office hours. Written copy of care instructions provided to patient. Voices understanding of all information reviewed. documented in this encounter [employer] 11-08-2023 Note General Surgery Offi ce/Clinic Note [...] patient had recent mammogram and US at [facility], small lump in question not visualized; patient with dense breast tissue; [place] [facility] [place] 6 mm nodule noted in posterior breast at 6 o'clock position; type 1 kinetics, recommended targeted US with bx if area visualized, or MRI-guided bx if not seen on US, read as category 4b; [place] [facility] [place] unable to locate any abnormal areas; felt MRI, given type 1 kinetics, was not concerning; over read of [place] [facility] [place] with breast fellowship was consistent with category 4b, and MRI-guided bx was recommended; even with type 1 kinetics, there is an approximately 9 % risk of the lesion being malignant. no fmhx of breast or ovarian cancers, other than great grandmother; patient grew up in [place] where environmental exposures have had increased cancer [...] understands the risks of possible bleeding, and alf scarring; she will follow up 1 week [...] History Abdominal aortic aneurysm: Father. Hypertension: Mother. [facility] Comment on above: Result Comment: Elec tronically Signed By: ZAK RECINOS, Oscar Levine\.br\Date and Time Signed: 11/08/23 14:01 EDT 10-18-2023 Evaluation + Plan note Future Scheduled TestsMA Mamm Diag w/CAD if perf and 3D Lm 10/18/23 [facility] [place] Evaluation + Plan note Future Appointments Appointment Date:11/08/2023 10:20:00 AM Scheduled Provider:Oscar LONDON MD Location:[facility] Appointment Type:[place] [id number] Future Scheduled TestsMA Mamm Diag w/CAD if perf and 3D Lm 10/18/23 [facility] Evaluation note No assessment inform ation available [facility] Work Phone: Evaluation note Diagnosis Menorrhagia with regular cycle Encounter for weight management documented in this encounter [facility] HealthcareEvaluation note* Diagnosis Pre-op examination Menorrhagia with regular cycle Abnormal uterine bleeding Unspecified disorder of menstruation and other abnormal bleeding from female genital tract Pelvic pain in female Unspecified symptom associated with female genital organs documented in this encounter [facility] HealthcareHospital course Narrative No data available for this section [facility] No data available for this section [facility]ructionsNot on filedocumented in this encounter [facility] No data available for this section [facility] Summary Purpose Family History No Family History [...] Date/ Time Advance Directives No September 19 4 12:23pm Chief Complaint and Reason for Visit Chief Complaint n63.10 Chief Complaint Admit Date n63.13 r92.8 May 01, 2024 9 :03am Additional Source Comments INFORMATION SOURCE (unrecogn ized section and content) DATE CREATED AUTHOR 10/15/2017 [facility] DATE CREATED AUTHOR AUTHOR'S ORGANIZ ATION 03/30/2018 Daisy Fani marion DATE CREATED AUTHOR AUTHOR'S ORGANIZ ATION 08/30/2022 [facility] DATE CREATED AUTHOR AUTHOR'S ORGANIZ ATION 12/10/2023 [facility] DATE CREATED AUTHOR AUTHOR'S ORGANIZ ATION 04/01/2024 [facility] DATE CREATED AUTHOR AUTHOR'S ORGANIZ ATION 05/06/2024 [facility] DATE CREATED AUTHOR AUTHOR'S ORGANIZ ATION 07/08/2024 [facility] [employer] Care Teams (unrecognized sec tion and content) [...] sectionGoals may be documented in an alternate sectionNot on filedocumented as of this encounterNot on filedocumented as of this encounter Reason for Visit (unrecogniz ed section and content) Reason Comments Menstrual Problem Reason Comments Pre-op Visit FOR RECORDS PERTAINING TO PATIENTS WHO ARE [...] BE BASED ON THE PRIMARY CLINICAL RECORDS. [facility], [facility]. provides no warranty or guarantee of the accuracy or completeness of information in this document.
[2024-07-17 07:18] LABS: Basophils Absolute Auto 0.1 10^3/uL (0.0-0.1); Basophils Percent Auto 0.8 % (0.2-2.0); Eosinophils Absolute Auto 0.2 10^3/uL (0.0-0.7); Eosinophils Percent Auto 2.2 % (0.9-7.0); Hematocrit 39.6 % (36.0-48.0); Hemoglobin 13.2 g/dL (12.0-16.0); Immature Granulocytes Abs Auto 0.02 10^3/uL (0.00-0.03); Immature Granulocytes Pct Auto 0.2 % (0.0-0.5); Lymphocytes Absolute Auto 3.3 10^3/uL (1.2-3.8); Mean Corpuscular HGB Conc 33.3 g/dL (29.9-35.2); Mean Corpuscular Hemoglobin 28.8 pg (26.7-34.0); Mean Corpuscular Volume 86.3 fL (81.0-99.0); Mean Platelet Volume 9.7 fL (9.5-13.5); Monocytes Absolute Auto 0.7 10^3/uL (0.3-0.8); Monocytes Percent Auto 7.7 % (1.7-12.0); Neutrophils Absolute Auto 4.3 10^3/uL (1.4-6.5); Neutrophils Percent Auto 50.1 % (43.0-75.0); Platelet Count 263 10^3/uL (150-450); Red Blood Count 4.59 10^6/uL (4.20-5.40); Red Cell Distribution Width 12.7 % (11.0-15.0); White Blood Count 8.6 10^3/uL (4.0-11.0)
[2024-07-17 07:31] VITALS: BP 122/78; PULSE 79; TEMP 36.5; O2SAT 99; BMI 28.7
[2024-07-17 07:39] LABS: HCG Quantitative <1 mIU/mL
[2024-07-17] MEDS: LACTATED RINGER'S SOLUTION 1,000 ML 50 ML IV ×2 (07:48→09:24)
--- NOTE | 2024-07-17 09:35 | PM.ONB ---
Brief Operative Note Date of procedure: 07/17/24 Pre-op diagnosis general: menorrhagia Post-op diagnosis: same as pre-op Procedure: NAME OF PROCEDURE: [ ] Leanne endometrial ablation with hysteroscopy. embx performed prior to ablation PROCEDURE: The patient was taken back to the OR where she was prepped and draped in the normal sterile fashion after being placed in the dorsal lithotomy position, after being placed under general anesthesia without difficulty.? A weighted speculum was placed into the vagina. The anterior lip was grasped with a single tooth tenaculum. endometrial bx performed with pipette. The patient was then sounded to approximated 8cm. The patient?s cervix was gently dilated using hegardilators. The hysteroscope was passed through the cervix into the uterus where both ostia were seen. No gross evidence of polyps, fibroids or malignancy. The cervical length was noted to be 4 cm. The total cavity length is 4cm.? The Leanne ablation apparatus was set to approximately 4cm in length. This was placed through the cervix and into the uterus. After the seal was tested, at that time the total ablation of 120 seconds was performed with the Leanne withoutdifficulty. All instruments were removed from the vagina. Excellent hemostasis noted.? Sponge and lap count correct times 2.? Patient taken to recovery in stable condition. Anesthesia: KATYA Surgeon: Rakesh Ohara Estimated blood loss (mL): 5 Pathology: other (endometrial currettings) Condition: stable Disposition: PACU Urinary Catheter Management Urinary Catheter Management Straight: Cath placed during this visit: no
[2024-07-17 09:40] VITALS: BP 95/50; PULSE 75; TEMP 36.3; O2SAT 95
[2024-07-17 09:55] VITALS: BP 99/55; PULSE 70; O2SAT 96
[2024-07-17 10:25] VITALS: BP 113/73; PULSE 72; O2SAT 98
--- NOTE | 2024-07-17 10:27 | PC.NURSE ---
Up to bathroom and voids clear yellow without difficulty
== END 2024-07-17 10:32 | disposition home or self-care (01) ==
PROVIDERS: Visit Provider Obstetrics & Gynecology
PROC: (CPT 940; principal; 2024-07-17 08:20)
DX: N92.0 Excessive and frequent menstruation with regular cycle (principal); N93.9 Abnormal uterine and vaginal bleeding, unspecified; R10.2 Pelvic and perineal pain; E03.9 Hypothyroidism, unspecified
CPT/HCPCS: 58100; 58563; 36415; 84702; 85025; 88305; J0131; J1100; J1885; J2250; J2405; J2704; J3010

== ENCOUNTER 2024-09-22 13:37 | Outpatient (REF) | payer BC, SELFPAY ==
--- OUTSIDE RECORDS SUMMARY | 2024-09-08 09:30 | XMS_ITS | Encounter Summary ---
Author Organization [facility] Address [address] [place] [address] Care Team Providers Care Missile Inspector Preflight Name Role Phone Unavailable Primary Care Provider Unavailabl e Reason for Visit * Reason Comments Weight Management Pt present today for Adipex #4 Encounter Details Date Type Department Care Team (Late st Contact Info) Description 09/08/2024 9:30 AM EDT Office Visit [facility] [address] [id number] Leia Mckeon PA [address] [place] [address] Weight gain; Encounter for weight management Social History Tobacco Use Types Packs/Day Years Used Date Smoking Tobacco: Never Assessed Comments No Sex and Gender Information Value Date Recorded Sex Assigned at Not on file Legal Sex Female 7:18 PM EDT Gender Identity Not on file Sexual Orientation Not on file documented as of this encounter Last Filed Vital Signs Vital Sign Reading Time Taken Comments Blood Pressure 112/70 09/08/2024 9:55 AM EDT Pulse - - Temperature - - Respiratory Rate - - Oxygen Saturation - - Inhaled Oxygen Concentration - - Weight 70.3 kg (155 lb) 09/08/2024 9:55 AM EDT Height - - Body Mass Index 28.35 06/08/2024 10:23 AM EST documented in this encounter Progress Notes * FENG Nieves - 09/08/2024 9:30 AM EDT Reason for Appointment: Patient ID: Elisabeth Small is a 39 y.o. female who presents for Weight Management (Pt present today for Adipex #4) Patient presents today for a weight management consultation. Patient desires to initiate Adipex. Initial Vitals for Adipex prescription #1: Estimated body mass index is 28.35 kg/m?? as calculated from the following: Height as of 06/08/24: 5' 2 . Weight as of 08/05/24: 155 lb. Allergies as of 09/08/2024 - Reviewed 09/08/2024 Allergen Reaction Noted Cefprozil Rash and Swelling 12/02/2023 No past medical history on file. Past Surgical History: Procedure Laterality Date BI US GUIDED BREAST LOCALIZATION AND BIOPSY LEFT Left 12/02/2023 BI US GUIDED BREAST LOCALIZATION AND BIOPSY LEFT 12/02/2023 Review of Systems: Review of Systems Constitutional: Negative. HENT: Negative. Eyes: Negative. Respiratory: Negative. Cardiovascular: Negative. Gastrointestinal: Negative. Genitourinary: Negative. Musculoskeletal: Negative. Skin: Negative. Neurological: Negative. All other systems reviewed and are negative. Hematological: Negative. Endocrine: Negative. Allergic/Immunologic: Negative. Objective Physical Exam Constitutional: Appearance: Normal appearance. She is normal weight. HENT: Head: Normocephalic. Cardiovascular: Rate and Rhythm: Normal rate. Pulses: Normal pulses. Pulmonary: Effort: Pulmonary effort is normal. Breath sounds: Normal breath sounds. Abdominal: Palpations: Abdomen is soft. Musculoskeletal: General: Normal range of motion. Neurological: General: No focal deficit present. Mental Status: She is alert and oriented to person, place, and time. Psychiatric: Mood and Affect: Mood normal. Behavior: Behavior normal. Thought Content: Thought content normal. Judgment: Judgment normal. Vitals and nursing note reviewed. Assessment/Plan Encounter Diagnosis Name Primary? Weight gain Adipex: Patient presents today for Adipex prescription. I have discussed in detail the importance of keeping a food journal, proper nutrition/diet, and exercise regimen while taking Adipex. Patient verbalized understanding and signed consents to initiate (Adipex) medication therapy. Patient was given a printed prescription signed by provider to take to their local pharmacy. Follow Up: Patient is to return to the office in 1 month for annual exam Documented by: Svitlana Romero MA on behalf of FENG Nieves documented in this encounter Plan of Treatment Not on file documented as of this encounter Visit Diagnoses Diagnosis Weight gain Other symptoms concerning nutrition, metabolism, and development Encounter for weight management documented in this encounter
--- OUTSIDE RECORDS SUMMARY | 2024-09-10 08:30 | XMS_ITS | Encounter Summary ---
Author Organization [facility] Address [address] [place] [address] Care Team Providers Care Automobile Upholsterer Apprentice Name Role Phone Unavailable Primary Care Provider Unavailabl e Reason for Visit * Reason Comments Skin Check Encounter Details Date Type Department Care Team (Late st Contact Info) Description 09/10/2024 8:30 AM EDT Office Visit [facility] [address] [place] [address] Vandana Mckenzie MD [address] [facility] [address] [place] [address] Seborrheic keratosis (Primary Dx); Lentigines Social History Tobacco Use Types Packs/Day Years Used Date Smoking Tobacco: Never Smokeless Tobacco: Never Tobacco Cessation:Counseling Given: Not Answered Comments No Sex and Gender Information Value Date Recorded Sex Assigned at Not on file Legal Sex Female 7:18 PM EDT Gender Identity Not on file Sexual Orientation Not on file documented as of this encounter Progress Notes * Vandana Mckenzie MD - 09/10/2024 8:30 AM EDT :Skin Check Location: Patient requests a full body skin examination Dermatologic history: no history of skin cancer, no history of atypical moles New patient All pertinent medical history, medications, and allergies were reviewed. General Exam: alert, oriented to person, place, and time, normal affect, well appearing Unaccompanied Scalp, Examined , exam limited by hair Right leg Examined Head, Face Examined , Patient declined to remove makeup Left leg Examined Neck Examined Right foot Examined Chest Examined Left foot Examined Back Examined Buttocks Examined Patient kept underwear on Abdomen Examined Digits,nails: Examined Right arm Examined Patient wearing nail lao, Denies dark streaks under finger nails, Denies darkstreaks on toenails Left arm Examined Lymphatics: Not examined Hands Examined Skin Exam 1. SEBORRHEIC KERATOSIS Torso - Posterior (Back) Stuck on verrucous, becerra-brown papules and plaques. Patient was counseled regarding these benign growths. Removal is normally not necessary, but they may be removed if they are symptomatic or for cosmetic reasons. 2. LENTIGINES Generalized Scattered becerra macules in sun-exposed areas. The patient was informed that lentigines are benign pigmented lesions that occur on sun-exposed andsun-damaged skin. No treatment is necessary. Recommended regular use of broad spectrum sunscreen SPF 30 or higher Next Visit: 1 year documented in this encounter Plan of Treatment Not on file documented as of this encounter Visit Diagnoses Diagnosis Seborrheic keratosis- Primary Lentigines documented in this encounter
--- OUTSIDE RECORDS SUMMARY | 2024-09-22 10:30 | XMS_ITS | Encounter Summary ---
Author Organization [facility] Address [address] [place] [address] Care Team Providers Care Steam And Gas Turbine Assembler Name Role Phone Unavailable Primary Care Provider Unavailabl e Reason for Visit * Reason Comments Gynecologic Exam Encounter Details Date Type Department Care Team (Late st Contact Info) Description 09/22/2024 10:30 AM EDT Office Visit [facility] [address] [facility] [place] [phone] Leia Mckeon PA [address] [place], [facility] Well woman exam with routine gynecological exam; Encounter for screening mammogram for malignant neoplasm of breast; Hypertension, unspecified type (CMS/HCC); Hypothyroidism, unspecified type (CMS/HCC) Social History Tobacco Use Types Packs/Day Years Used Date Smoking Tobacco: Never Smokeless Tobacco: Never Comments No Sex and Gender Information Value Date Recorded Sex Assigned at Not on file Legal Sex Female 7:18 PM EDT Gender Identity Not on file Sexual Orientation Not on file documented as of this encounter Last Filed Vital Signs Vital Sign Reading Time Taken Comments Blood Pressure 122/74 09/22/2024 10:37 AM EDT Pulse - - Temperature - - Respiratory Rate - - Oxygen Saturation - - Inhaled Oxygen Concentration - - Weight 69.9 kg (154 lb) 09/22/2024 10:37 AM EDT Height - - Body Mass Index 28.17 06/08/2024 10:23 AM EST documented in this encounter Progress Notes * FENG Nieves - 09/22/2024 10:30 AM EDT Reason for Appointment: Patient ID: Elisabeth Small is a 39 y.o. female who presents for Gynecologic Exam Patient presents today for Annual Exam. MEDICATIONS Current Outpatient Medications Medication Instructions levothyroxine (Synthroid, Levoxyl) 100 MCG tablet TAKE 1 TABLET BY MOUTH EVERY DAY IN THE MORNING ON EMPTY STOMACH phentermine (ADIPEX-P) 37.5 mg, Oral, Daily before breakfast phentermine (ADIPEX-P) 37.5 mg, Oral, Daily before breakfast phentermine (ADIPEX-P) 37.5 mg, Oral, Daily before breakfast phentermine (ADIPEX-P) 37.5 mg, Oral, Daily before breakfast spironolactone (ALDACTONE) 50 mg, Oral, Daily ALLERGIES Allergies Allergen Reactions Cefprozil Rash and Swelling PROBLEMS Active Ambulatory Problems Diagnosis Date Noted No Active Ambulatory Problems Resolved Ambulatory Problems Diagnosis Date Noted No Resolved Ambulatory Problems No Additional Past Medical History HISTORY PAST MEDICAL HISTORY SOCIAL HISTORY No past medical history on file. Social History Tobacco Use Smoking status: Never Smokeless tobacco: Never Substance Use Topics Alcohol use: Not on [...] Exam Constitutional: Appearance: Normal appearance. She is well-developed and normal weight. Genitourinary: Vulva normal. HENT: Head: Normocephalic. Cardiovascular: Rate and Rhythm: Normal rate and regular rhythm. Pulses: Normal pulses. Pulmonary: Effort: Pulmonary effort is normal. Breath sounds: Normal breath sounds. Abdominal: General: Bowel sounds are normal. There is no distension. Palpations: Abdomen is soft. Tenderness: There is no abdominal tenderness. There is no guarding or rebound. Musculoskeletal: General: No swelling. Normal range of motion. Right lower leg: No edema. Left lower leg: No edema. Neurological: General: No focal deficit present. Mental Status: She is alert and oriented to person, place, and time. Skin: General: Skin is warm and dry. Psychiatric: Mood and Affect: Mood normal. Behavior: Behavior normal. Thought Content: Thought content normal. Judgment: Judgment normal. Vitals and nursing note reviewed. Exam conducted with a plate stacker hand present. Vitals: Estimated body mass index is 28.17 kg/m?? as calculated from the following: Height as of 06/08/24: 5' 2 . Weight as of this encounter: 154 lb. BP: 122/74 No LMP recorded (lmp unknown). Patient has had an ablation. ASSESSMENT & PLAN ICD-10-CM 1. Well woman exam with routine gynecological exam Z01.419 THIN PREP TIS PAP AND HR HPV DNA 2. Encounter for screening mammogram for malignant neoplasm of breast Z12.31 Bilateral screening mammogram Bilateral screening mammogram 3. Hypertension, unspecified type (CMS/HCC) I10 spironolactone (Aldactone) 50 MG tablet 4. Hypothyroidism, unspecified type (CMS/HCC) E03.9 levothyroxine (Synthroid, Levoxyl) 100 MCG tablet Annual: Patient presents today for an annual exam. Patient states she is doing well and has no complaints. Pap was obtained without difficulty and patient given mammogram order to have scheduled/obtained. Patient was given refills on her Synthroid and Aldactone. Orders Placed This Encounter Procedures Bilateral screening mammogram Follow Up: Patient is to return in one year for annual unless needed otherwise. Documented by Svitlana Romero MA on behalf of: FENG Nieves documented in this encounter Plan of Treatment Scheduled Orders Name Type Priority Associated Diagnoses Orde r Schedule Bilateral screening mammogram Imaging Routine Encounter for screening mammogram for malignant neoplasm of breast Expected: 09/22/2024 (Approximate), Expires: 11/22/2025 THIN PREP TIS PAP AND HR HPV DNA Pathology and Cytology Routine Well woman exam with routine gynecological exam Ordered: 09/22/2024 documented as of this encounter Visit Diagnoses Diagnosis Well woman exam with routine gynecological exam Routine gynecological examination Encounter for screening mammogram for malignant neoplasm of breast Hypertension, unspecified type (CMS/HCC) Hypothyroidism, unspecified type (CMS/HCC) documented in this encounter
--- OUTSIDE RECORDS SUMMARY | 2024-09-22 13:40 | XMS_ITS | Clinical Summary ---
Author Organization [facility] Address [address] [place] [address] Care Team Providers Care Hot Worker Name Role Phone Rakesh Ohara Primary Care Provider [phone] Social History Tobacco Use Types Packs/Day Years Used Date Smoking Tobacco: Never Assessed Comments Unknown Sex and Gender Information Value Date Recorded Sex Assigned at Not on file Legal Sex Female 4:56 AM EDT Gender Identity Not on file Sexual Orientation Not on file Plan of Treatment Health Maintenance Due Date Last Done Comments Anxiety Screening 07/02/2001 Depression Screening 07/02/2001 HIV Screening 07/02/2001 Hepatitis C Screening 07/02/2001 DTaP,Tdap,Td Vaccine (1 - Tdap) 07/02/2002 Hepatitis B Vaccine (1 of 3 - 19+ 3-dose series) 07/02 Cervical Cancer Screening 07/02/2004 Mammogram Screening 2023 Covid-19 Vaccine ( season) 2023 Influenza Vaccine (Season Ended) 2024 Insurance BLUE ACCESS PPO Care Teams Hot Worker Relationship Specialty Start Date End Date Rakesh Ohara DO [address] [place] [address] PCP - General Hop Trainer 05/06/24
--- OUTSIDE RECORDS SUMMARY | 2024-09-22 13:40 | XMS_ITS | Encounter Summary ---
Author Organization [facility] Address [address] [place] [address] Care Team Providers Care Industrial Safety Engineer Name Role Phone Unavailable Primary Care Provider Unavailabl e Encounter Details Date Type Department Care Team (Late st Contact Info) Description 10/12/2022 Abstract [facility] [address] [place] [phone] Rakesh Ohara, DO [address] [place], [place] [phone] Social History Tobacco Use Types Packs/Day Years Used Date Smoking Tobacco: Never Assessed Comments Unknown Sex and Gender Information Value Date Recorded Sex Assigned at Not on file Legal Sex Female 7:18 PM EDT Gender Identity Not on file Sexual Orientation Not on file documented as of this encounter Plan of Treatment Not on file documented as of this encounter Visit Diagnoses Not on filedocumented in this encounter
--- OUTSIDE RECORDS SUMMARY | 2024-09-22 13:40 | XMS_ITS | Encounter Summary ---
Author Organization [facility] Address [address] [place] [address] Care Team Providers Care International Sales Representative Name Role Phone Unavailable Primary Care Provider Unavailabl e Encounter Details Date Type Department Care Team (Late st Contact Info) Description 09/18/2023 Abstract [facility] [address] [place] [phone] Leia Mckeon PA [address] [place], [place] [phone] Social History Tobacco Use Types Packs/Day Years [...]
--- OUTSIDE RECORDS SUMMARY | 2024-09-22 13:40 | XMS_ITS | Encounter Summary ---
Author Organization [facility] Address [address] [place] [address] Care Team Providers Care Truss Maker Name Role Phone Unavailable Primary Care Provider Unavailabl e Encounter Details Date Type Department Care Team (Late st Contact Info) Description 09/22/2024 Bamboo flowsheet [facility] [address] [facility] [place] [address] Leia Mckeon PA [address] [facility] [address] [place], [place] [phone] Social History Tobacco Use Types Packs/Day Years [...]
--- OUTSIDE RECORDS SUMMARY | 2024-09-22 13:40 | XMS_ITS | Encounter Summary ---
Author Organization [facility] Address [address] [place] [address] Care Team Providers Care Farm Manager Name Role Phone Unavailable Primary Care Provider Unavailabl e Encounter Details Date Type Department Care Team (Late st Contact Info) Description 09/12/2023 Clinisync Result Encounter [facility] External Department Unsolicited Leia Mckeon PA [address] [place] [address] [address] [place], [place] [id number] Social History Tobacco Use Types Packs/Day Years Used Date Smoking Tobacco: Never Assessed Comments No Sex and Gender Information Value Date Recorded Sex Assigned at Not on file Legal Sex Female 7:18 PM EDT Gender Identity Not on file Sexual Orientation Not on file documented as of this encounter Miscellaneous Notes * Result Encounter Note - Svetlana Garcia LPN - 09/12/2023 10:33 AM EDT Pt notified and orders sent to [facility] documented in this encounter Plan of Treatment Not on file documented as of this encounter Procedures Procedure Name Priority Date/Time Associated Diagnosis Comments BI US BREAST LIMITED RIGHT 09/12/2023 10:10 AM EDT MLR HEMOGLOBIN A1C Routine 09/12/2023 10 :09 AM EDT [facility] CMP (CMP) (FOR REMOTE [facility] USE) Routine 09/12/2023 10:09 AM EDT ALL THYROID STIM HORMONE Routine 09/12/2023 10:09 AM EDT ALL LIPID PROFILE (FASTING) Routine 09/12/2023 10:09 AM EDT ALL CBC WITH AUTO DIFF Routine 09/12/2023 10:09 AM EDT documented in this encounter Results * Right breast US limited (09/12/2023 10:10 AM EDT) Anatomical Region Laterality Modality Breast Right Ultrasound 09/12/2023 10:1 0 AM EDT Narrative 09/12/2023 10:11 [place] [address] Ultrasound Report Signed Patient: GEOFF SMALL MR#: [id number] : 1985 Acct:[id number] Age/Sex: 38 / F ADM Date: 09/12/23 Loc: MAMMO Attending Dr: Leia Mckeon Ordering Physician: Leia Mckeon Date of Service: 09/12/23 Procedure(s): US breast RT limited Accession Number(s): [id number] cc: Leia Mckeon; Physician,Non-Staff M.D. Patient Name: GEOFF SMALL MR#: [id number] : 1985 Exam Date: 09/12/2023 Ordering Doctor: FENG Mckeon . RADIOLOGY REPORT PROCEDURE: MM TOMOSYNTHESIS DIAGNOSTIC BI, 09/12/2023, 09:13 US BREAST RT LIMITED, 09/12/2023, 09:31 COMPARISON: MG MAMM SCREEN 3D JULEE CAD, 08/28/2022. INDICATIONS: N63.10 Mass of right breast Calculator Name NCI Breast Cancer Risk Assessment Tool 5 Year Breast Cancer Risk 0.80% Lifetime Breast Cancer Risk 14.80% Personal Breast Cancer No Personal Ovarian Cancer No Treatments None Family Cancers None LOCATION: [facility] BREAST COMPOSITION: The breasts are extremely dense, which lowers the sensitivity of mammography. FINDINGS: DIAGNOSTIC CATEGORY 0--INCOMPLETE: NEED ADDITIONAL IMAGING EVALUATION. Scattered benign-appearing nodules are present. Scattered benign-appearing calcifications are present. Scattered benign-appearing lymph nodes are present. RIGHT BREAST: No mammographic or ultrasound abnormality to correspond to the patient's palpable abnormality demarcated with a triangle marker lower inner quadrant, mid breast. Physical exam demonstrates a definite subcutaneous palpable nodule size of a pea along the 6 o'clock position of the right breast. In light of the physical exam, follow-up MRI is recommended for further evaluation. LEFT BREAST: No significant suspicious finding. RECOMMENDATIONS: BREAST MRI: BILATERAL BREASTS PLEASE NOTE: A NORMAL MAMMOGRAM DOES NOT EXCLUDE THE POSSIBILITY OF BREAST CANCER. A CLINICALLY SUSPICIOUS PALPABLE LUMP SHOULD BE BIOPSIED. Dictated by: Rudolph Stevenson MD on 09/12/2023 at 10:06 Approved by: Rudolph Stevenson MD on 09/12/2023 at 10:10 Dictated By: Rudolph Stevenson M.D. Signed By: 09/12/23 1011 DD/ 1010 TD/TT: Pick Up: Procedure Note Radiology, Radiologist, - 09/12/2023 [place] [address] Ultrasound Report Signed Patient: GEOFF SMALLMR#: [id number] : 1985Acct:[id number] Age/Sex: 38 / FADM Date: 09/12/23 Loc: MAMMO Attending Dr: Leia Mckeon Ordering Physician: Leia Mckeon Date of Service: 09/12/23 Procedure(s): US breast RT limited Accession Number(s): [id number] cc: Leia Mckeon; Physician,Non-Staff MRita Patient Name: GEOFF SMALL MR#: [id number] : 1985 Exam Date: 09/12/2023 Ordering Doctor: FENG Mckeon . RADIOLOGY REPORT PROCEDURE: MM TOMOSYNTHESIS DIAGNOSTIC BI, 09/12/2023, 09:13 US BREAST RT LIMITED, 09/12/2023, 09:31 COMPARISON: MG MAMM SCREEN 3D JULEE CAD, 08/28/2022. INDICATIONS: N63.10 Mass of right breast Calculator Name NCI Breast Cancer Risk Assessment Tool 5 Year Breast Cancer Risk 0.80% Lifetime Breast Cancer Risk 14.80% Personal Breast Cancer No Personal Ovarian Cancer No Treatments None Family Cancers None LOCATION: [facility] BREAST COMPOSITION: The breasts are extremely dense, which lowers the sensitivity of mammography. FINDINGS: DIAGNOSTIC CATEGORY 0--INCOMPLETE: NEED ADDITIONAL IMAGING EVALUATION. Scattered benign-appearing nodules are present. Scatteredbenign-appearing calcifications are present. Scattered benign-appearing lymph nodes are present. RIGHT BREAST: No mammographic or ultrasound abnormality to correspond tothe patient's palpable abnormality demarcated with a triangle marker lowerinner quadrant, mid breast. Physical exam demonstrates a definite subcutaneous palpable nodule size of a pea along the 6 o'clock position of the right breast. In light of the physical exam, follow-up MRI is recommended for further evaluation. LEFT BREAST: No significant suspicious finding. RECOMMENDATIONS: BREAST MRI: BILATERAL BREASTS PLEASE NOTE: A NORMAL MAMMOGRAM DOES NOT EXCLUDE THE POSSIBILITY OFBREAST CANCER. A CLINICALLY SUSPICIOUS PALPABLE LUMP SHOULD BE BIOPSIED. Dictated by: Rudolph Stevenson MD on 09/12/2023 at 10:06 Approved by: Rudolph Stevenson MD on 09/12/2023 at 10:10 Dictated By: Rudolph Stevenson M.D. Signed By:09/12/23 1011 DD/ 1010 TD/TT: Pick Up: us Leia TONEY IMG US PROCEDURES Final Result * ALL THYROID STIM HORMONE (09/12/2023 10:09 AM EDT) THYROID STIMULATING HORMONE 0.942 0.358 - 3.740 uIU/mL TBH 09/12/2023 10:0 9 AM EDT 09/12/2023 10:33 AM EDT Narrative CLINISYNC - 09/12/2023 12:27 PM EDT Leia MEDRANO Final Result [facility]IN[facility] TB * (ABNORMAL) ALL LIPID PROFILE (FASTING) (09/12/2023 10:09 AM EDT) TRIGLYCERIDES 33 <=150 mg/dL TBH CHOLESTEROL 192 <=200 mg/dL TB HDL CHOLESTEROL 69(H) 40 - 60 mg/dL TB Comment: > or =60 mg/dl - LOW CARDIOVASCULAR RISK <40 mg/dl - HIGH CARDIOVASCULAR RISK LDL CHOLESTEROL CALCULATED 117.0 mg/dL TB Comment: <100 mg/dl OPTIMAL 100-129 mg/dl NEAR OR ABOVE OPTIMAL 130-159 mg/dl BORDERLINE HIGH 160-189 mg/dl HIGH >190 mg/dl VERY HIGH VLDL CHOLESTEROL 6.6 mg/dL TBH CHOL HDL RATIO 2.8 TBH Comment: 3.3 - 4.4 LOW RISK 4.4 - 7.1 AVERAGE RISK 7.1 - 11.0 MODERATE RISK >11.0 HIGH RISK 09/12/2023 10:0 9 AM EDT 09/12/2023 10:33 AM EDT Narrative CLINISYNC - 09/12/2023 12:27 PM EDT us Leia TONEY CLINISYNC Final Result [facility] TB * [facility]CF CMP (CMP) (FOR REMOTE [facility] USE) (09/12/2023 10:09 AM EDT) SODIUM 140 136 - 145 mmol/L TBH POTASSIUM 3.8 3.5 - 5.1 mmol/L TBH CHLORIDE 103 98 - 107 mmol/L TBH CARBON DIOXIDE 29.2 21.0 - 32.0 mmol/L TBH ANION GAP 11.6 TBH GLUCOSE 83 74 - 106 mg/dL TBH BLOOD UREA NITROGEN 11.0 7.0 - 18.0 mg/dL TBH CREATININE 0.64 0.55 - 1.02 mg/dL TBH TBH EGFR-AF MOZAMBICAN >60 >=60 TBH TBH EGFR-NON AF MOZAMBICAN >60 >=60 TBH BUN CREATININE RATIO 17.2 TBH CALCIUM 8.8 8.5 - 10.1 mg/dL TBH BILIRUBIN TOTAL 0.7 0.2 - 1.0 mg/dL TBH ASPARTATE AMINO TRANSFERASE 21 15 - 37 U/L TBH ALANINE AMINOTRANSFERASE 27 14 - 59 U/L TBH ALKALINE PHOSPHATASE 50 46 - 116 U/L TBH TOTAL PROTEIN 7.2 6.4 - 8.2 g/dL TBH ALBUMIN LEVEL 3.7 3.4 - 5.0 g/dL TBH GLOBULIN 3.5 g/dL TBH ALBUMIN GLOBULIN RATIO 1.1 TBH 09/12/2023 10:0 9 AM EDT 09/12/2023 10:33 AM EDT Narrative CLINISYNC - 09/12/2023 12:27 PM EDT Leia MEDRANO Final Result Performing Organization Address City/[facility] Co de Phone Number [facility] * MLR HEMOGLOBIN A1C (09/12/2023 10:09 AM EDT) GLYCOHEMOGLOBIN A1C 5.4 4.5 - 6.2 % TB Comment: ADA RECOMMENDED LIMIT 4.0 - 6.0 ADA THERAPEUTIC TARGET < 7.0 ACTION SUGGESTED > 7.0 ESTIMATED AVERAGE GLUCOSE 108 mg/dL TB 09/12/2023 10:0 9 AM EDT 09/12/2023 10:33 AM EDT Narrative CLINISYNC - 09/12/2023 11:39 AM EDT Leia MEDRANO Final Result Performing Organization Address [facility] de Phone Number [facility] * (ABNORMAL) ALL CBC WITH AUTO DIFF (09/12/2023 10:09 AM EDT) Pathologist [facility] TB WBC 7.5 4.0 - 11.0 10 3/uL TBH TB RBC 4.43 4.20 - 5.40 10 6/uL TBH TB HGB 12.4 12.0 - 16.0 g/dL TB TB HCT 38.5 36.0 - 48.0 % TB TB MCV 86.9 81.0 - 99.0 fL TB TB MCH 28.0 26.7 - 34.0 pg TBH TB MCHC 32.2 29.9 - 35.2 g/dL TB TB RDW 12.8 11.0 - 15.0 % TBH TB PLT 258 150 - 450 10 3/uL TBH TB MPV 9.7 9.5 - 13.5 fL TBH NEUTROPHILS PERCENT AUTO 60.1 43.0 - 75.0 % TBH LYMPHOCYTES PERCENT AUTO 29.4 20.5 - 60.0 % TBH MONOCYTES PERCENT AUTO 7.3 1.7 - 12.0 % TBH TBH EO % 1.9 0.9 - 7.0 % TBH BASOPHILS PERCENT AUTO 0.8 0.2 - 2.0 % TBH IMMATURE GRANULOCYTES PCT AUTO 0.5 0.0 - 0.5 % TBH NEUTROPHILS ABSOLUTE AUTO 4.5 1.4 - 6.5 10 3/uL TBH LYMPHOCYTES ABSOLUTE AUTO 2.2 1.2 - 3.8 10 3/uL TBH MONOCYTES ABSOLUTE AUTO 0.6 0.3 - 0.8 10 3/uL TBH TBH EO # 0.1 0.0 - 0.7 10 3/uL TBH BASOPHILS ABSOLUTE AUTO 0.1 0.0 - 0.1 10 3/uL TBH IMMATURE GRANULOCYTES ABS AUTO 0.04(H) 0.00 - 0.03 10 3/uL TBH 09/12/2023 10:0 9 AM EDT 09/12/2023 10:33 AM EDT Narrative CLINISYNC - 09/12/2023 10:44 AM EDT us Leia TONEY CLINISYNC Final Result CLINISYNC TB documented in this encounter Visit Diagnoses Not on filedocumented in this encounter
--- OUTSIDE RECORDS SUMMARY | 2024-09-22 13:40 | XMS_ITS | Encounter Summary ---
Author Organization [facility] Address [address] [place] [address] Care Team Providers Care Solutions Sales Consultant Name Role Phone Unavailable Primary Care Provider Unavailabl e Encounter Details Date Type Department Care Team (Late st Contact Info) Description 07/17/2024 Abstract [facility] OB [address] [facility] [place] [phone] Rakesh Ohara, DO [address] [place], [place] [phone] Social History Tobacco Use Types Packs/Day Years [...]
--- OUTSIDE RECORDS SUMMARY | 2024-09-22 13:40 | XMS_ITS | Encounter Summary ---
Author Organization [facility] Address [address] [place] [address] Care Team Providers Care Door Furring Installer Name Role Phone Unavailable Primary Care Provider Unavailabl e Encounter Details Date Type Department Care Team (Late st Contact Info) Description 10/17/2023 Abstract [facility] [address] [place] [phone] Janessa Ceja LPN [address] [place], [place] [address] Social History Tobacco Use Types Packs/Day Years [...]
--- OUTSIDE RECORDS SUMMARY | 2024-09-22 13:40 | XMS_ITS | Clinical Summary ---
Author Organization [facility] Address [id number] [address] [place] [address] Care Team Providers Care Chin Strap Maker Name Role Phone Unavailable Primary Care Provider Unavailabl e Allergies Active Allergy Reactions Criticality Noted Date Comments Cefprozil Swelling,Rash Low 12/02/2023 Social History Tobacco Use Types Packs/Day Years Used Date Smoking Tobacco: Never Assessed Comments Unknown Sex and Gender Information Value Date Recorded Sex Assigned at Not on file Legal Sex Female 9:40 AM EDT Gender Identity Not on file Sexual Orientation Not on file Plan of Treatment Health Maintenance Due Date Last Done Comments Depression Screening 1995 Tobacco Screening 1995 Adult BMI Screening 07/02/2001 Pap Smear 07/02/2004 Influenza Vaccine 12/21/2024 02/10/2016, 01/20/2016 DTaP,Tdap and Td Vaccines (2 - Td or Tdap) 12/29/2026 12/29/2016 Medical Devices Not on file Insurance [employer] Member Subscriber Plan / Payer (Ef fective 2022-Present) Name:Elisabeth Small Member ID:[id number] Relation to Subscriber:Self Name:Elisabeth Small Subscriber ID:[id number] Payer ID:[id number] (NAIC) Type:Not on file Address: [address] [place] [id number]
--- OUTSIDE RECORDS SUMMARY | 2024-09-22 13:40 | XMS_ITS | Encounter Summary ---
Author Organization [facility] Address [address] [place] [address] Care Team Providers Care Slab Installer Name Role Phone Unavailable Primary Care Provider Unavailabl e Encounter Details Date Type Department Care Team (Late st Contact Info) Description 09/12/2023 Clinisync Result Encounter [facility] External Department Unsolicited Leia Mckeon PA [address] [place] [address] [address] [place], [place] [id number] Social History Tobacco Use Types Packs/Day Years [...] Procedure Name Priority Date/Time Associated Diagnosis Comments MM TOMOSYNTHESIS DIAGNOSTIC BI 09/12/2023 10:10 AM EDT documented in this encounter Results * MM TOMOSYNTHESIS DIAGNOSTIC BI (09/12/2023 10:10 AM EDT) Anatomical Region Laterality Modality Other 09/12/2023 10:1 0 AM EDT Narrative 09/12/2023 10:11 AM EDT The [address] [address] Mammography Report Signed Patient: GEOFF SMALL MR#: [id number] : 1985 Acct:[id number] Age/Sex: 38 / F ADM Date: 09/12/23 Loc: MAMMO Attending Dr: Leia Mckeon Ordering Physician: Leia Mckeon Results: Date of Service: 09/12/23 Follow Up: Procedure(s): MM tomosynthesis diagnostic BI Accession Number(s): [id number] cc: Leia Mckeon; Physician,Non-Staff MRita Patient Name: GEOFF SMALL MR#: [id number] : 1985 Exam Date: 09/12/2023 Ordering Doctor: [...] Treatments None Family Cancers None LOCATION: The [facility] BREAST COMPOSITION: The breasts are extremely [...] Signed By: 09/12/23 1011 DD/ 1010 TD/TT: Senior Accounting Specialist: Procedure Note Radiology, RadiologistMD - 09/12/2023 [place] [address] Mammography Report Signed Patient: GEOFF SMALLMR#: [id number] : 1985Acct:[id number] Age/Sex: 38 / FADM Date: 09/12/23 Loc: MAMMO Attending Dr: Leia Mckeon Ordering Physician: Leia MckeonResults: Date of Service: 09/12/23Follow Up: Procedure(s): MM tomosynthesis diagnostic BI Accession Number(s): [id number] cc: Leia Mckeon; Physician,Non-Staff M.DAdan Patient Name: GEOFF SMALL MR#: [id number] : 1985 Exam Date: 09/12/2023 Ordering Doctor: [...] Treatments None Family Cancers None LOCATION: The [facility] BREAST COMPOSITION: The breasts are extremely [...] M.D. Signed By:09/12/23 1011 DD/ 1010 TD/TT: Senior Accounting Specialist: us Leia TONEY [facility] Final Result documented in this encounter Visit Diagnoses Not on filedocumented in this encounter
--- OUTSIDE RECORDS SUMMARY | 2024-09-22 13:40 | XMS_ITS | Patient Health Record ---
Author Organization [facility] Renetta diaz Billing Info Address [address] [place], [place] [address] Care Team Providers Care Teacher Private Name Role Phone VIK RASMUSSEN Primary Care Provider [phone] Allergies Allergen (clinical drug ingredient) Drug/Non Drug Allergy documented on EMR Reaction Allergy Type Onset Date Status Cefzil Unknown Drug Allergy Active metronidazole Flagyl GI intolerance Drug Allergy Active Reason For Referral No Information Medications Medication SIG (Take, Route, Frequency, Duration) Notes Start Date End Date Status Zithromax Z-Markus 250 MG 2 tablet on the f irst day, then 1 tablet daily for 4 days Orally Once a day for 5 day(s) 08/03/2021 Active Phentermine HCl 37.5 MG 1 tablet Orally Once a day for 30 day(s) 09/04/2021 Active Linzess 72 MCG 1 capsule at least 3 0 minutes before the first meal of the day on an empty stomach Orally Once a day for 90 day(s) 06/06/2021 Active Amoxicillin-Pot Clavulanate 875-125 MG 1 tablet Orally every 12 hrs for 10 day(s) 02/14/2021 Active Levothyroxine Sodium 75 MCG 1 tablet on an empty stomach in the morning Orally Once a day for 90 day(s) Active Spironolactone 50 MG 1 tablet Orally Onc e a day for 90 day(s) 09/03/2021 Active Social History Tobacco Use: Social History Observation Description Date Details (start date - stop date) Never Smoker NA - NA Tobacco Status: Question Answer Notes Patient is a never smoker Problems Problem Type SNOMED Code ICD Code Onset Dates Problem Status W/U Status Risk Notes Problem 26409420 Amenorrhea (N91.2) Active confirmed Problem 854941676 Preventative hea lt care (Z00.00) Active confirmed Problem 122081892 Hypothyroidism (acquired) (E03.9) Active confirmed Plan Of Treatment No Information Insurance Providers Payer Name Payer Address Payer Phone Subscriber Number Group Number Insured Name Patient Relationship to Insured Coverage Start Date Coverage End Date [employer] [address] [place], [place] [id number] Elisabeth Small Self - patient is the insured Medical (General) History Medical History History ICD Code Acquired hypothyroidism E03.9 Surgical History Surgery Date(Month/Year) thyroidectomy partial- right bozena 2006 Hospitalization History Reason Date(Month/Year) see above childbirth
--- OUTSIDE RECORDS SUMMARY | 2024-09-22 13:40 | XMS_ITS | Encounter Summary ---
Author Organization [facility] Healthcare Address [address] [place] [address] Care Team Providers Care Painter Helper Name Role Phone Unavailable Primary Care Provider Unavailabl e Encounter Details Date Type Department Care Team (Latest Contact Info) Description 09/10/2024 Travel Social History Tobacco Use Types Packs/Day Years [...]
--- OUTSIDE RECORDS SUMMARY | 2024-09-22 13:40 | XMS_ITS | Encounter Summary ---
Author Organization [facility] Address [address] [place] [address] Care Team Providers Care Tax Services Specialist Name Role Phone Unavailable Primary Care Provider Unavailabl e Encounter Details Date Type Department Care Team (Late st Contact Info) Description 09/19/2023 Abstract [facility] [address] [facility] [place] [phone] Rakesh Ohara, DO [address] [place], [place] [phone] Social History Tobacco Use Types Packs/Day Years [...]
--- OUTSIDE RECORDS SUMMARY | 2024-09-22 13:40 | XMS_ITS | Encounter Summary ---
Author Organization [facility] Address [address] [place] [address] Care Team Providers Care Bone Process Operator Name Role Phone Unavailable Primary Care Provider Unavailabl e Encounter Details Date Type Department Care Team (Late st Contact Info) Description 09/08/2024 Bamboo flowsheet [facility] [address] [facility] [place] [address] Leia Mckeon PA [address] [facility] [address] [place], [place] [phone] Social History Tobacco Use Types Packs/Day Years [...]
--- OUTSIDE RECORDS SUMMARY | 2024-09-22 13:40 | XMS_ITS | Encounter Summary ---
Author Organization [facility] Address [address] [place] [address] Care Team Providers Care Computer Artist Name Role Phone Unavailable Primary Care Provider Unavailabl e Encounter Details Date Type Department Care Team (Late st Contact Info) Description 10/12/2022 Abstract [facility] [address] [place] [phone] Rakesh Ohara, DO [address] [place], [place] [phone] Social History Tobacco Use Types Packs/Day Years [...]
--- OUTSIDE RECORDS SUMMARY | 2024-09-22 13:40 | XMS_ITS | Clinical Summary ---
Author Organization [facility] Address [address] [place] [address] Care Team Providers Care Material Worker Name Role Phone Unavailable Primary Care Provider Unavailabl e Allergies Active Allergy Reactions Criticality Noted Date Comments Cefprozil Rash,Swelling Low 12/02/2023 Medications phentermine (Adipex-P) 37.5 MG tabletIndicatio ns:Encounter for weight management Take 1 tablet (37.5 mg) by mouth in the morning. Take before meals. 30 tablet 06/08/19 25 Active phentermine (Adipex-P) 37.5 MG tabletIndicatio ns:Encounter for weight management Take 1 tablet (37.5 mg) by mouth in the morning. Take before meals. 30 tablet 07/07/19 25 Active phentermine (Adipex-P) 37.5 MG tabletIndicatio ns:Encounter for weight management Take 1 tablet (37.5 mg) by mouth in the morning. Take before meals. 30 tablet 08/06/19 25 Active phentermine (Adipex-P) 37.5 MG tabletIndicatio ns:Encounter for weight management Take 1 tablet (37.5 mg) by mouth in the morning. Take before meals. 90 tablet 09/09/19 25 025 Active spironolactone (Aldactone) 50 MG tabletIndicatio ns:Hypertension , unspecified type (CMS/HCC) Take 1 tablet (50 mg) by mouth Daily 90 tablet 4 09/23/19 25 Active levothyroxine (Synthroid, Levoxyl) 100 MCG tabletIndicatio ns:Hypothyroidi sm, unspecified type (CMS/HCC) TAKE 1 TABLET BY MOUTH EVERY DAY IN THE MORNING ON EMPTY STOMACH 90 tablet 3 09/23/19 25 Active spironolactone (Aldactone) 50 MG tabletIndicatio ns:Hypertension , unspecified type (CMS/HCC) TAKE 1 TABLET BY MOUTH EVERY DAY FOR 90 DAYS 90 tablet 4 09/04/19 24 025 Discontinued levothyroxine (Synthroid, Levoxyl) 100 MCG tabletIndicatio ns:Hypothyroidi sm, unspecified type (CMS/HCC) TAKE 1 TABLET BY MOUTH EVERY DAY IN THE MORNING ON EMPTY STOMACH 90 tablet 3 09/09/19 24 025 Discontinued(Re order) spironolactone (Aldactone) 50 MG tabletIndicatio ns:Hypertension , unspecified type (CMS/HCC) TAKE 1 TABLET BY MOUTH EVERY DAY 90 tablet 4 09/05/19 25 025 Discontinued(Re order) Active Problems No known active problems Encounters Date Type Department Care Team Description 09/22/2024 10:30 AM EDT Office Visit [facility] [address] [place] [address] [place] [address] Leia Mckeon PA Well woman exam with routine gynecological exam; Encounter for screening mammogram for malignant neoplasm of breast; Hypertension, unspecified type (CMS/HCC); Hypothyroidism, unspecified type (CMS/HCC) 09/22/2024 Bamboo flowsheet [facility] [address] [place] [address] [place] [address] Leia Mckeon PA 09/10/2024 8:30 AM EDT Office Visit [facility] [address] [facility] [address] [place] [phone] Vandana Mckenzie MD Seborrheic keratosis (Primary Dx); Lentigines 09/10/2024 Bamboo flowsheet [facility] [address] [facility] [address] [place] [phone] Vandana Mckenzie MD 09/10/2024 Travel 09/08/2024 9:30 AM EDT Office Visit [facility] [address] [place] [address] [place] [address] Leia Mckeon PA Weight gain; Encounter for weight management 09/08/2024 Bamboo flowsheet [facility] [address] [facility] [place] [address] Leia Mckeon PA 09/04/2024 Refill [facility] [address] [facility] [place] [address] Leia Mckeon PA Hypertension, unspecified type (CMS/HCC) 08/05/2024 11:10 AM EDT Office Visit [facility] [address] [place] [address] Gwyn Ohara DO Weight gain; Encounter for weight management 08/05/2024 Bamboo flowsheet [facility] [address] [facility] [place] [address] Gwyn Ohara, 07/17/2024 Abstract [facility] [address] [facility] [place] [address] Gwyn Ohara, 07/17/2024 Clinisync Result Encounter [facility] External Department Unsolicited Gwyn Ohara, 07/07/2024 Clinisync Result Encounter [facility] External Department Unsolicited Gwyn Ohara, DO 07/06/2024 1:30 PM EDT Office Visit [facility] [address] [facility] [place] [address] Leia Mckeon, PA Encounter for weight management 07/06/2024 Bamboo flowsheet [facility] [address] [facility] [place] [address] Leia Mckeon PA 06/24/2024 11:30 AM EST Consult [facility] [address] [facility] [place] [address] Gwyn Ohara DO Pre-op examination; Menorrhagia with regular cycle; Abnormal uterine bleeding; Pelvic pain in female 06/24/2024 Bamboo flowsheet [facility] [address] [place] [address] Gwyn Ohara DO from Last 3 Months Social History Tobacco Use Types Packs/Day Years Used Date Smoking Tobacco: Never Smokeless Tobacco: Never Tobacco Cessation:Counseling Given: Not Answered Comments No Sex and Gender Information Value Date Recorded Sex Assigned at Not on file Legal Sex Female 7:18 PM EDT Gender Identity Not on file Sexual Orientation Not on file Last Filed Vital Signs Vital Sign Reading Time Taken Comments Blood Pressure 122/74 09/22/2024 10:37 AM EDT Pulse - - Temperature - - Respiratory Rate - - Oxygen Saturation - - Inhaled Oxygen Concentration - - Weight 69.9 kg (154 lb) 09/22/2024 10:37 AM EDT Height 157.5 cm (5' 2 ) 06/08/2024 10:23 AM EST Body Mass Index 28.17 06/08/2024 10:23 AM EST Plan of Treatment Not on file Procedures Procedure Name Priority Date/Time Associated Diagnosis Comments [facility] PREG QUANT HCG Routine 07/17/2024 7: 12 AM EDT ALL CBC WITH AUTO DIFF Routine 07/17/2024 7:12 AM EDT ECG 12-LEAD 07/07/2024 2:05 PM EDT from Last 3 Months Results * [facility] PREG QUANT HCG (07/17/2024 7:12 AM EDT) HCG QUANTITATIVE <1 mIU/mL [facility] Comment: 5-50 0.2-1 WEEK 50-500 1-2 WEEKS 100-5,000 2-3 WEEKS 500-10,000 3-4 WEEKS 1,000-50,000 4-5 WEEKS 10,000-100,000 5-6 WEEKS 15,000-200,000 6-8 WEEKS 10,000-100,000 2-3 MONTHS 07/17/2024 7:12 AM EDT 07/17/2024 7:13 AM EDT Narrative [facility] - 07/17/2024 7:39 AM EDT us Gwyn Mayda DO [facility] Final Result [facility] * ALL CBC WITH AUTO DIFF (07/17/2024 7:12 AM EDT) [facility] TB WBC 8.6 4.0 - 11.0 10 3/uL [facility] RBC 4.59 4.20 - 5.40 10 6/uL [facility]H HGB 13.2 12.0 - 16.0 g/dL [facility] TBH HCT 39.6 36.0 - 48.0 % [facility]H MCV 86.3 81.0 - 99.0 fL TBH TBH MCH 28.8 26.7 - 34.0 pg TBH TBH MCHC 33.3 29.9 - 35.2 g/dL [facility] TBH RDW 12.7 11.0 - 15.0 % [facility] TBH PLT 263 150 - 450 10 3/uL TBH TBH MPV 9.7 9.5 - 13.5 fL TBH NEUTROPHILS PERCENT AUTO 50.1 43.0 - 75.0 % [facility]H LYMPHOCYTES PERCENT AUTO 39.0 20.5 - 60.0 % [facility] MONOCYTES PERCENT AUTO 7.7 1.7 - 12.0 % [facility] TBH EO % 2.2 0.9 - 7.0 % [facility] BASOPHILS PERCENT AUTO 0.8 0.2 - 2.0 % [facility] IMMATURE GRANULOCYTES PCT AUTO 0.2 0.0 - 0.5 % TBH NEUTROPHILS ABSOLUTE AUTO 4.3 1.4 - 6.5 10 3/uL TBH LYMPHOCYTES ABSOLUTE AUTO 3.3 1.2 - 3.8 10 3/uL TBH MONOCYTES ABSOLUTE AUTO 0.7 0.3 - 0.8 10 3/uL TBH TBH EO # 0.2 0.0 - 0.7 10 3/uL TBH BASOPHILS ABSOLUTE AUTO 0.1 0.0 - 0.1 10 3/uL [facility]H IMMATURE GRANULOCYTES ABS AUTO 0.02 0.00 - 0.03 10 3/uL [facility] 07/17/2024 7:12 AM EDT 07/17/2024 7:13 AM EDT Narrative [facility] - 07/17/2024 7:34 AM EDT Gwyn Ohara DO [facility] Final Result [facility] * ECG 12-LEAD (07/07/2024 2:05 PM EDT) Anatomical Region Laterality Modality Other 07/07/2024 2:05 PM EDT Narrative 07/07/2024 2:58 [place] [address] Electrocardiograph Report Signed Patient: GEOFF SMALL MR#: [id number] : 1985 Acct:[id number] Age/Sex: 39 / F ADM Date: 07/07/24 Loc: PST Attending Dr: Gwyn Ohara D.O. Ordering Physician: Gwyn Ohara D.O. Date of Service: 07/07/24 Procedure(s): ECG 12 lead Accession Number(s): [id number] cc: [facility] Test Date: 2024-07-07 Pat Name: GEOFF SMALL Department: Room: - Gender: Female Manager Clinical: : 1985 Requested By: GWYN OHARA Order Number: [id number] Reading MD: MAZIN BILLINGSLEY Measurements Intervals [place] Rate: 71 P: 5 NH: 120 QRS: 7 QRSD: 105 T: 8 QT: 380 QTc: 416 Interpretive Statements SINUS RHYTHM No previous ECG available for comparison Electronically Signed On 07-07-2024 14:58:22 EDT by MAZIN BILLINGSLEY Dictated By: Mazin Billingsley M.D. Signed By: 07/07/24 1458 DD/ 1405 TD/TT: Dietary Tech: Procedure Note Radiology, Radiologist, - 07/07/2024 [place] [address] Electrocardiograph Report Signed Patient: GEOFF SMALLMR#: [id number] : 1985Acct:[id number] Age/Sex: 39 / FADM Date: 07/07/24 Loc: PST Attending Dr: Gwyn Ohara D.O. Ordering Physician: Gwyn Ohara D.O. Date of Service: 07/07/24 Procedure(s): ECG 12 lead Accession Number(s): [id number] cc: [facility] Test Date: 2024-07-07 Pat Name: GEOFF SMALL Department: Room: - Gender: Female Manager Clinical: : 1985 Requested By: GWYN OHARA Order Number: [id number] Reading MD: MAZIN BILLINGSLEY Measurements Intervals [place] Rate: 71 P: 5 NH: 120 QRS: 7 QRSD: 105 T: 8 QT: 380 QTc: 416 Interpretive Statements SINUS RHYTHM No previous ECG available for comparison Electronically Signed On 07-07-2024 14:58:22 EDT by MAZIN BILLINGSLEY Dictated By: Mazin Billingsley M.D. Signed By:07/07/24 1458 DD/ 1405 TD/TT: Dietary Tech: us Gwyn Ohara DO [facility] Final Result from Last 3 Months Insurance
--- OUTSIDE RECORDS SUMMARY | 2024-09-22 13:40 | XMS_ITS | Patient Health Record ---
Author Organization Darren Michael MD [facility] Address [address] [facility] [address] [place] [id number] Care Team Providers Care Grease Rack Worker Name Role Phone Layla Keller APRN, APRN Primary Care Provide r Unavailable [email or web address] Unavailable [phone] Allergies Allergen (clinical drug ingredient) Drug/Non Drug Allergy documented on EMR Reaction Allergy Type Onset Date Status Cefzil Unknown Drug Allergy Active metronidazole Flagyl Unknown Drug Allergy Act pavel Reason For Referral No Information Medications Medication SIG (Take, Route, Frequency, Duration) Notes Start Date End Date Status Protonix 40 MG 1 tablet Orally Once a day for 30 days Active Levothyroxine Sodium 75 MCG 1 tablet on an empty stomach in the morning Orally Once a day for 30 day(s) Active Junel 05/11 1-20 MG-MCG 1 tablet Orally O nce a day for 21 day(s) Active Social History Tobacco Use: Social History Observation Description Date Details (start date - stop date) Never Smoker NA - NA Tobacco Use/Smoking Question Answer Notes Are you a nonsmoker Alcohol screening: Question Answer Notes Did you have a drink contain ing alcohol in the past year? Yes How often did you have six o r more drinks on one occasion in the past year? Less than monthly (1 point) How many drinks did you have on a typical day when you were drinking in the past year? 1 or 2 (0 points) How often did you have a dri nk containing alcohol in the past year? Monthly or less (1 point) Points 2 Interpretation Negative Problems Problem Type SNOMED Code ICD Code Onset Dates Problem Status W/U Status Risk Notes Problem Hemorrhage of rectum and anus (692494179) Hemorrhage of anus and rectum (K62.5) Active confirmed Problem Other hemorrhoids (K64.8) Active confirmed Problem Epigastric pain (01808458) Epigastric pain (R10.13) Active confirmed Problem Right upper quadrant pain (586291217) Right upper quadrant pain (R10.11) Active confirmed Plan Of Treatment No Information Insurance Providers Payer Name Payer Address Payer Phone Subscriber Number Group Number Insured Name Patient Relationship to Insured Coverage Start Date Coverage End Date [facility] [address] [place] [id number] Serafin Small Self - patient is the insured Medical (General) History Medical History History ICD Code Thyroid Disease Surgical History Surgery Date(Month/Year) Right Fer-thyroidectomy 2005 Colonoscopy 2018
--- OUTSIDE RECORDS SUMMARY | 2024-09-22 13:40 | XMS_ITS | Encounter Summary ---
Author Organization [facility] Address [address] [place] [address] Care Team Providers Care Overhead Cleaner Maintainer Name Role Phone Unavailable Primary Care Provider Unavailabl e Encounter Details Date Type Department Care Team (Late st Contact Info) Description 10/01/2023 Abstract [facility] [address] [facility] [phone] Vandana Sanchez LPN Social History Tobacco Use Types Packs/Day Years [...]
--- OUTSIDE RECORDS SUMMARY | 2024-09-22 13:40 | XMS_ITS | Encounter Summary ---
Author Organization [facility] Address [address] [place] [address] Care Team Providers Care Fac Engineer Name Role Phone Unavailable Primary Care Provider Unavailabl e Encounter Details Date Type Department Care Team (Late st Contact Info) Description 09/10/2024 Bamboo flowsheet [facility] [address] [facility] [address] [place] [address] Vandana Mckenzie MD [address] [facility] [address] [place] [address] Social History Tobacco Use Types Packs/Day Years [...]
[2024-09-24 11:08] LABS: Age Gdln ACOG Testing Note (.); HPV Aptima Negative (Negative); IGP, Aptima HPV, rfx 16/18,45 Note (.)
== END 2024-09-22 13:38 | disposition home or self-care (01) ==
LOC: LAB 13:37
PROVIDERS: Visit Provider Physician Assistant
DX: Z01.419 Encounter for gynecological examination (general) (routine) without abnormal findings (principal)
CPT/HCPCS: 87624; 88175

== ENCOUNTER 2025-03-03 07:54 | Outpatient (RCR) | payer OTHER, SELFPAY | END 2025-03-25 09:19 | disposition home or self-care (01) | LOC: PT 07:54 | PROVIDERS: Visit Provider Physician Assistant | DX: S76.011D Strain of muscle, fascia and tendon of right hip, subsequent encounter (principal); M25.551 Pain in right hip | CPT/HCPCS: 97035; 97110; 97112; 97140; 97161; 97530 ==